=== PATIENT | male | born 1940 | race Hispanic/Latino ===

== ENCOUNTER 2017-07-21 18:13 | Inpatient (IN) | payer MEDICARE ==
--- NOTE | 2017-07-21 19:08 | ED PDOC ---
HPI: Psych/Substance Abuse Time Seen by Provider: 07/21/17 18:24 Chief Complaint (Nursing): Psychiatric Evaluation Chief Complaint (Provider): crisis eval ED Caveat: Dementia History Per: EMS, Other (SD paperwork) History/Exam Limitations: clinical condition Onset/Duration Of Symptoms: Unknown Current Symptoms Are (Timing): Intermittent Episodes Modifying Factor(s): None Severity: None Associated Symptoms: Agitation, Paranoia Involuntary Hold By: Emergency Physician Additional History Per: Prior Records Additional Complaint(s): 77yo male possibly recently placed to [place] and became agitated and physical with fellow [place] resident/ staff. In ED patient calm and cooperative but confused. No reports fever, falls, vomiting or diarrhea. Past Medical History Reviewed: Historical Data, Nursing Documentation, Vital Signs Vital Signs: Last Vital Signs Temp 98.0 F 07/21/17 18:15 Pulse 78 07/21/17 18:15 Resp 16 07/21/17 18:15 BP 148/78 07/21/17 18:15 Pulse Ox 98 07/21/17 18:15 - Medical History PMH: COPD, HTN, Hyperlipidemia, Chronic Kidney Disease - Family History Family History: States: Unknown Family Hx - Living Arrangements Living Arrangements: Halfway/Assist Lvng - Social History Current smoker - smoking cessation education provided: No - Home Medications Home Medications: Ambulatory Orders Medication Instructions Recorded Azithromycin [Zithromax] 500 mg IVPB DAILY 5 Days vial 07/15/17 Albuterol/Ipratropium [Duoneb 3 3 ml INH RQ6 neb 07/16/17 mg/0.5 mg (3 ml) UD] Apixaban [Eliquis] 2.5 mg PO BID tab 07/16/17 Aspirin [Ecotrin] 81 mg PO DAILY tabec 07/16/17 Carvedilol [Coreg] 12.5 mg PO BID tab 07/16/17 Spironolactone [Aldactone] 25 mg PO BID tab 07/16/17 Tiotropium [place] Inhaler 1 inhaler INH ONCE inhaler 07/16/17 [Spiriva Inhalation Handihaler Device] Tiotropium [Spiriva] 18 mcg INH RQ24 cap 07/16/17 Vitamin B Complex/Vit C/Folic 1 tab PO 0800 tab 07/16/17 [Nephro-Doreen] cefTRIAXone [Rocephin] 1 gm IVPB DAILY vial 07/16/17 - Allergies Allergies/Adverse Reactions: Allergies Allergy/AdvReac Type Severity Reaction Status Date / Time No Known Allergies Allergy Unverified 07/09/17 18:07 Review of Systems Review Of Systems: ROS cannot be obtained secondary to pt's inabilty to answer questions. Physical Exam - Reviewed Nursing Documentation Reviewed: Yes Vital Signs Reviewed: Yes - Physical Exam Appears: Positive for: Non-toxic (elderly confused), No Acute Distress Head Exam: Positive for: ATRAUMATIC, NORMAL INSPECTION, NORMOCEPHALIC Skin: Positive for: Normal Color, Warm, DRY Eye Exam: Positive for: EOMI, Normal appearance, PERRL ENT: Positive for: Normal ENT Inspection Neck: Positive for: Normal, Painless ROM Cardiovascular/Chest: Positive for: Regular Rate, Rhythm Respiratory: Positive for: CNT, Normal Breath Sounds Gastrointestinal/Abdominal: Positive for: Normal Exam, Bowel Sounds, Soft Back: Positive for: Normal Inspection Extremity: Positive for: Normal ROM Neurologic/Psych: Positive for: Alert, Other (labile poor insight). Negative for: Oriented, Facial Droop - Laboratory Results Result Diagrams: 07/22/17 05:20 07/22/17 05:20 - ECG O2 Sat by Pulse Oximetry: 98 Medical Decision Making Medical Decision Making: workup for med clr for crisis eval initiated endorsed Dr Damon 7pm pending labs/ crisis/ dispo Disposition - Clinical Impression Clinical Impression: Dementia, Pneumonia - Patient ED Disposition Is Patient to be Admitted: Transfer of Care - Disposition Disposition Time: 19:00 Condition: FAIR Patient Signed Over To: Carlos Damon - Pt Status Changed To: Hospital Disposition Of: Observation
--- NOTE | 2017-07-21 19:32 | ED PDOC ---
- Laboratory Results Result Diagrams: 07/22/17 05:20 07/21/17 22:28 - ECG O2 Sat by Pulse Oximetry: 98 Medical Decision Making Medical Decision Makin:00 -Patient transferred to nv by Dr. Lyle, pending crisis evaluation, labs and reevaluation. 20:00 -Patient placed in 1:1 observation -Per crisis, patient [place] be [place] [facility] [place] 21:43 -Labs reviewed, significant for marked leukocytosis. On further review of patient's charts from [facility] and [facility], pt is currently being treated for pneumonia. -Given that he has active pneumonia and leukocytosis patient is not appropiate for psychiatric admission. He will be admitted for further treatment of condition. -Discussed case with Dr. Xie. Disposition Discussed With : Marlon Xie - Clinical Impression Clinical Impression: Dementia, Pneumonia - POA Present On Arrival: None - Disposition Disposition: Admitted as In-Patient Disposition Time: 20:40 Condition: FAIR
[2017-07-21 20:11] LABS: BASO # 0.2 K/uL (0.0-0.2); BASO % 0.7 % (0.0-2.0); EOS # 0.2 K/uL (0.0-0.7); EOS % 0.8 % (0.0-4.0); HEMOGLOBIN 13.1 g/dL (12.0-18.0); LYMPH # 1.5 K/uL (1.0-4.3); LYMPH % 6.4 % (20.0-40.0); MEAN CELL VOLUME 92.1 fl (80.0-94.0); MEAN CORPUSCULAR HEMOGLOBIN 28.9 pg (27.0-31.0); MEAN CORPUSCULAR HGB CONC 31.4 g/dL (33.0-37.0); MONO # 1.3 K/uL (0.0-0.8); MONO % 5.4 % (0.0-10.0); NEUT # 20.5 K/uL (1.8-7.0); NEUT % 86.7 % (50.0-75.0); PLATELET COUNT 351 K/uL (130-400); RBC 4.53 Mil/uL (4.40-5.90); RED CELL DISTRIBUTION WIDTH 13.9 % (11.5-14.5); WHITE BLOOD COUNT 23.7 K/uL (4.8-10.8)
[2017-07-21 20:31] LABS: ALBUMIN 3.8 g/dL (3.5-5.0); ALT/SGPT 24 U/L (21-72); AST/SGOT 41 U/L (17-59); BLOOD UREA NITROGEN 62 mg/dl (9-20); CALCIUM 9.2 mg/dL (8.4-10.2); GFR AFRICAN-AMERICAN 42; GFR NON-AFRICAN AMERICAN 34
[2017-07-21] MEDS ORDERED: Cefepime 1 GM in Sodium Chloride 0.9% 100 ML IVPB STA (21:19)
[2017-07-21 21:29] LABS: INR 1.4 (0.9-1.2); PROTHROMBIN TIME 15.4 Seconds (9.8-13.1)
[2017-07-21 22:32] LABS: BANDS 3 % (0-2); EOSINOPHIL 2 % (0-7); LYMPHOCYTE 7 % (20-50); MONOCYTE 6 % (0-10); NEUTROPHIL 82 % (42-75); PLATELET ESTIMATE NORMAL (NORMAL); TOTAL CELLS COUNTED 100
[2017-07-21 22:34] LABS: TOXIC GRANULATION PRESENT
[2017-07-21] MEDS ORDERED: levoFLOXacin 500 mg in D5W 500 MG/100 ML BAG IVPB ONE (22:35)
[2017-07-21] MEDS ORDERED: levoFLOXacin 500 mg in D5W 500 MG/100 ML BAG IVPB STA (22:38)
[2017-07-21 23:04] LABS: CALCIUM 8.9 mg/dL (8.4-10.2)
[2017-07-22 06:24] LABS: BASO # 0.1 K/uL (0.0-0.2); BASO % 0.6 % (0.0-2.0); EOS # 0.3 K/uL (0.0-0.7); EOS % 1.3 % (0.0-4.0); HEMOGLOBIN 12.6 g/dL (12.0-18.0); LYMPH # 1.4 K/uL (1.0-4.3); MEAN CELL VOLUME 92.5 fl (80.0-94.0); MEAN CORPUSCULAR HEMOGLOBIN 28.5 pg (27.0-31.0); MEAN CORPUSCULAR HGB CONC 30.9 g/dL (33.0-37.0); MEAN PLATELET VOLUME 9.2 fl (7.2-11.7); MONO # 1.2 K/uL (0.0-0.8); MONO % 5.9 % (0.0-10.0); NEUT # 17.6 K/uL (1.8-7.0); NEUT % 85.2 % (50.0-75.0); NRBC % 0.1 % (0.0-0.0); RBC 4.42 Mil/uL (4.40-5.90); RED CELL DISTRIBUTION WIDTH 13.6 % (11.5-14.5); WHITE BLOOD COUNT 20.6 K/uL (4.8-10.8)
[2017-07-22 06:35] LABS: CALCIUM 8.7 mg/dL (8.4-10.2); MAGNESIUM 2.2 MG/DL (1.6-2.3)
[2017-07-22] MEDS: Insulin Regular 100 units/ml SC SCH ×4 (07:37→22:00)
--- NOTE | 2017-07-22 08:41 | CP.PCM.HP ---
History of Present Illness - History of Present Illness History of Present Illness: CC: Agitation and Cough History of Present Illness: History from the patient and the chart A 77 year old male with H/O COPD, CAD s/p CABG, A.fib, Dementia, and was being treated for Pneumonia at [facility] with IV antibiotics when he became agitated and aggressive and transferred for psych eval. In the ER, he was found to have Cough, Congestion and Leukocytosis, and he was admitted for HCAP However once he was in ED he was found to be calm and cooperative. He denies any fever or chills. Present on Admission - Present on Admission Any Indicators Present on Admission: No History of DVT/PE: No History of Uncontrolled Diabetes: No Urinary Catheter: No Decubitus Ulcer Present: No Review of Systems - Review of Systems All systems: reviewed and no additional remarkable complaints except Past Patient History - Past Medical History & Family History Past Medical History?: Yes Past Family History: Reviewed and not pertinent - Past Social History Smoking Status: Former Smoker Alcohol: None Drugs: Denies - CARDIAC Hx Cardiac Disorders: Yes Hx Atrial Fibrillation: Yes Hx Hypercholesterolemia: Yes - PULMONARY Hx Respiratory Disorders: Yes Hx Chronic Obstructive Pulmonary Disease (COPD): Yes - NEUROLOGICAL Hx Neurological Disorder: Yes Hx Dementia: Yes - HEENT Hx HEENT Problems: Yes Other/Comment: [place] - RENAL Hx Chronic Kidney Disease: Yes Hx Dialysis: No - ENDOCRINE/METABOLIC Hx Endocrine Disorders: Yes Hx Diabetes Mellitus Type 2: Yes - HEMATOLOGICAL/ONCOLOGICAL Hx Blood Disorders: No Hx AIDS: No Hx Human Immunodeficiency Virus (HIV): No - INTEGUMENTARY Hx Dermatological Problems: No - MUSCULOSKELETAL/RHEUMATOLOGICAL Hx Musculoskeletal Disorders: Yes Hx Falls: Yes - GASTROINTESTINAL Hx Gastrointestinal Disorders: No - GENITOURINARY/GYNECOLOGICAL Hx Genitourinary Disorders: Yes Hx Bladder Cancer: No Hx Bladder Stone: No Hx Hematuria: No Hx Incontinence: No Hx Prostate Cancer: No Hx Prostate Problems: No Hx Reproductive Disorders: No Hx Sexually Transmitted Disorders: No Hx Urinary Tract Infection: No - PSYCHIATRIC Hx Psychophysiologic Disorder: Yes Hx Substance Use: No Other/Comment: being tx for. pna - SURGICAL HISTORY Hx Surgeries: Yes Hx Open Heart Surgery: Yes (30 years ago) Hx Pulmonary Surgery: No Hx Thyroidectomy: Yes - ANESTHESIA Hx Anesthesia: Yes Hx Anesthesia Reactions: No Hx Malignant Hyperthermia: No Meds Allergies/Adverse Reactions: Allergies Allergy/AdvReac Type Severity Reaction Status Date / Time No Known Allergies Allergy Unverified 07/09/17 18:07 Physical Exam - Constitutional Appears: Well, No Acute Distress - Head Exam Head Exam: ATRAUMATIC, NORMAL INSPECTION, NORMOCEPHALIC - Eye Exam Eye Exam: EOMI, Normal appearance, PERRL Pupil Exam: NORMAL ACCOMODATION, PERRL - ENT Exam ENT Exam: Mucous Membranes Moist, Normal Exam - Neck Exam Neck exam: Positive for: Normal Inspection - Respiratory Exam Respiratory Exam: Decreased Breath Sounds, Rales, NORMAL BREATHING PATTERN. absent: Wheezes Additional comments: Midline healed surgical scars - Cardiovascular Exam Cardiovascular Exam: REGULAR RHYTHM, +S1, +S2 - GI/Abdominal Exam GI & Abdominal Exam: Normal Bowel Sounds, Soft. absent: Tenderness - Extremities Exam Extremities exam: Positive for: normal capillary refill, normal inspection Additional comments: Multiple Bruises to B/L Upper extremities. - Back Exam Back exam: NORMAL INSPECTION - Neurological Exam Neurological exam: Abnormal Gait, Alert, CN II-XII Intact, Reflexes Normal Additional comments: Not oriented to PPP. - Psychiatric Exam Psychiatric exam: Normal Affect, Normal Mood - Skin Skin Exam: Dry, Intact, Normal Color, Warm Results - Vital Signs Recent Vital Signs: Last Vital Signs Temp 97.6 F 07/22/17 07:47 Pulse 71 07/22/17 07:47 Resp 18 07/22/17 07:47 BP 143/88 07/22/17 07:47 Pulse Ox 97 07/22/17 07:47 - Labs Result Diagrams: 07/22/17 05:20 07/22/17 05:20 Labs: Laboratory Results - last 24 hr 07/21/17 07/21/17 07/21/17 19:08 19:11 20:05 WBC 23.7 H RBC 4.53 Hgb 13.1 Hct 41.7 MCV 92.1 MCH 28.9 MCHC 31.4 L RDW 13.9 Plt Count 351 MPV 9.0 Neut % (Auto) 86.7 H Lymph % (Auto) 6.4 L [place] % (Auto) 5.4 Eos % (Auto) 0.8 Baso % (Auto) 0.7 Neut # 20.5 H Lymph # 1.5 [place] # 1.3 H Eos # 0.2 Baso # 0.2 Neutrophils % (Manual) 82 H Band Neutrophils % 3 H Lymphocytes % (Manual) 7 L Monocytes % (Manual) 6 Eosinophils % (Manual) 2 Toxic Granulation Present Platelet Estimate Normal PT INR APTT Sodium 138 Potassium 7.1 H* Chloride 105 Carbon Dioxide 21 L Anion Gap 19 BUN 62 H Creatinine 1.9 H Est GFR ( Amer) 42 Est GFR (Non-Af Amer) 34 POC Glucose (mg/dL) 144 H Random Glucose 150 H Lactic Acid Calcium 9.2 Magnesium Total Bilirubin 1.0 AST 41 ALT 24 Alkaline Phosphatase 64 Troponin I 0.0380 Total Protein 7.6 Albumin 3.8 Globulin 3.9 Albumin/Globulin Ratio 1.0 Alcohol, Quantitative < 10 07/21/17 07/21/17 07/21/17 21:00 21:00 22:28 WBC RBC Hgb Hct MCV MCH MCHC RDW Plt Count MPV Neut % (Auto) Lymph % (Auto) [place] % (Auto) Eos % (Auto) Baso % (Auto) Neut # Lymph # [place] # Eos # Baso # Neutrophils % (Manual) Band Neutrophils % Lymphocytes % (Manual) Monocytes % (Manual) Eosinophils % (Manual) Toxic Granulation Platelet Estimate PT 15.4 H INR 1.4 H APTT 30.0 Sodium 138 Potassium 4.7 Chloride 106 Carbon Dioxide 23 Anion Gap 14 BUN 58 H Creatinine 1.8 H Est GFR ( Amer) 44 Est GFR (Non-Af Amer) 37 POC Glucose (mg/dL) Random Glucose 125 H Lactic Acid 1.1 Calcium 8.9 Magnesium Total Bilirubin AST ALT Alkaline Phosphatase Troponin I Total Protein Albumin Globulin Albumin/Globulin Ratio Alcohol, Quantitative 07/22/17 07/22/17 07/22/17 05:20 05:20 05:55 WBC 20.6 H RBC 4.42 Hgb 12.6 Hct 40.9 MCV 92.5 MCH 28.5 MCHC 30.9 L RDW 13.6 Plt Count 351 MPV 9.2 Neut % (Auto) 85.2 H Lymph % (Auto) 7.0 L [place] % (Auto) 5.9 Eos % (Auto) 1.3 Baso % (Auto) 0.6 Neut # 17.6 H Lymph # 1.4 [place] # 1.2 H Eos # 0.3 Baso # 0.1 Neutrophils % (Manual) Band Neutrophils % Lymphocytes % (Manual) Monocytes % (Manual) Eosinophils % (Manual) Toxic Granulation Platelet Estimate PT INR APTT Sodium 139 Potassium 5.2 H Chloride 108 H Carbon Dioxide 19 L Anion Gap 17 BUN 52 H Creatinine 1.5 Est GFR ( Amer) 55 Est GFR (Non-Af Amer) 45 POC Glucose (mg/dL) 98 Random Glucose 93 Lactic Acid Calcium 8.7 Magnesium 2.2 Total Bilirubin AST ALT Alkaline Phosphatase Troponin I Total Protein Albumin Globulin Albumin/Globulin Ratio Alcohol, Quantitative - Imaging and Cardiology Chest x-ray Status: Report reviewed by me Additional comment: HISTORY: med clr COMPARISON: No prior. FINDINGS: LUNGS: No active pulmonary disease. PLEURA: No significant pleural effusion identified, no pneumothorax apparent. CARDIOVASCULAR: Prior sternotomy with sternal wires and surgical clips in place. Atherosclerotic aortic calcifications. Cardiomediastinal silhouette within normal limits. OSSEOUS STRUCTURES: Degenerative changes. VISUALIZED UPPER ABDOMEN: Normal. OTHER FINDINGS: Left upper extremity midline catheter with tip seen in the axilla. IMPRESSION: No active disease. Assessment & Plan (1) Agitation Assessment and Plan: Possibibly due to Acute Delirium due to Systemic Infection Vs Dementia with behaviour Haldol PRN Safety watch Psych Evaluation Status: Acute (2) Leukocytosis Assessment and Plan: Most Likely Pneumonia, Facility Acquired Vs Line Sepsis from the PICC Line C Start IV Cefepime and Levaquin IVF Sputum and Blood Cultures (from the periphery and Central Line ID Consult May Need CT Chest /TTE if Leukocyt persists Status: Acute
[2017-07-22] MEDS ORDERED: Cefepime 1 GM in Sodium Chloride 0.9% 100 ML IVPB SCH (09:00)
[2017-07-22] MEDS ORDERED: levoFLOXacin 500 mg in D5W 500 MG/100 ML BAG IVPB SCH (09:00)
[2017-07-22 09:05] LABS: BARBITURATES, UR NEGATIVE (NEGATIVE); BENZODIAZEPINES, UR NEGATIVE (NEGATIVE); OPIATES, UR NEGATIVE (NEGATIVE); PHENCYCLIDINE, UR NEGATIVE (NEGATIVE)
[2017-07-22 09:07] LABS: SQUAMOUS EPITHIAL < 1 /hpf (0-5); URINE BACTERIA RARE (<OCC); URINE BILIRUBIN NEGATIVE (NEGATIVE); URINE BLOOD NEGATIVE (NEGATIVE); URINE CLARITY SLIGHTY-CLOUDY (Clear); URINE COLOR YELLOW (YELLOW); URINE GLUCOSE (UA) NEG (Normal); URINE HYALINE CAST 0-2 /hpf (0-2); URINE LEUKOCYTE ESTERASE NEG Leu/uL (Negative); URINE NITRATE NEGATIVE (NEGATIVE); URINE PROTEIN 100 mg/dL (NEGATIVE); URINE UROBILINOGEN 0.2-1.0 mg/dL (0.2-1.0)
[2017-07-22] MEDS: levoFLOXacin 250 mg in D5W 250 MG/50 ML BAG IVPB SCH (09:11)
[2017-07-22] MEDS: Multivitamin Vitamin B Complex (Nephro-Vite) Tab PO SCH (09:12)
--- NOTE | 2017-07-22 09:57 | RAD ---
HISTORY: med clr COMPARISON: No prior. FINDINGS: LUNGS: No active pulmonary disease. PLEURA: No significant pleural effusion identified, no pneumothorax apparent. CARDIOVASCULAR: Prior sternotomy with sternal wires and surgical clips in place. Atherosclerotic aortic calcifications. Cardiomediastinal silhouette within normal limits. OSSEOUS STRUCTURES: Degenerative changes. VISUALIZED UPPER ABDOMEN: Normal. OTHER FINDINGS: Left upper extremity midline catheter with tip seen in the axilla. IMPRESSION: No active disease.
--- NOTE | 2017-07-22 11:18 | CARD ---
APPROVED REPORT EKG Measurement Heart [id number] <Conclusion> Sinus rhythm with 1st degree AV block with premature atrial complexes Left axis deviation Right bundle branch block Abnormal ECG
[2017-07-22] MEDS: Albuterol-Ipratrop 3 mg / 0.5 (3 ml) UD INH PRN (11:37)
[2017-07-22] MEDS: Tiotropium 18 mcg Cap For Inhalation INH SCH ×2 (11:38→16:58)
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
[2017-07-22] MEDS: Sodium Chloride 0.45% 1,000 ML IV SCH (15:55)
[2017-07-22] MEDS: Piperacillin/Tazobact 3.375 GM in Sodium Chloride 0.9% 100 ML IVPB SCH (17:06)
[2017-07-23] MEDS: Piperacillin/Tazobact 3.375 GM in Sodium Chloride 0.9% 100 ML IVPB SCH ×3 (01:40→17:17)
[2017-07-23] MEDS ORDERED: Sodium Chloride 3% for Inhalation 4 ML VIAL.NEB IH ONE (05:00)
[2017-07-23 06:38] LABS: BASO # 0.2 K/uL (0.0-0.2); EOS # 0.2 K/uL (0.0-0.7); EOS % 1.4 % (0.0-4.0); HEMOGLOBIN 12.2 g/dL (12.0-18.0); LYMPH # 1.2 K/uL (1.0-4.3); LYMPH % 7.3 % (20.0-40.0); MEAN CELL VOLUME 89.7 fl (80.0-94.0); MEAN CORPUSCULAR HEMOGLOBIN 29.6 pg (27.0-31.0); MEAN PLATELET VOLUME 8.9 fl (7.2-11.7); MONO % 6.1 % (0.0-10.0); NEUT % 84.2 % (50.0-75.0); RBC 4.11 Mil/uL (4.40-5.90); RED CELL DISTRIBUTION WIDTH 13.4 % (11.5-14.5); WHITE BLOOD COUNT 16.6 K/uL (4.8-10.8)
[2017-07-23 06:43] LABS: CALCIUM 8.8 mg/dL (8.4-10.2)
[2017-07-23] MEDS: Insulin Regular 100 units/ml SC SCH ×4 (08:06→22:18)
--- NOTE | 2017-07-23 08:19 | PQF GENQUE ---
Dr. Xie, 1. Please specify type of pneumonia or suspected type of pneumonia in the progress notes: if known after the work up is completed: i.e. Aspiration pneumonia Please document specific aspirate (food, liquids, etc.) (please indicate specific cause) Please indicate if this is postprocedural Bacterial (specify organism) Bronchopneumonia (specify organism) Interstitual pneumonia Organizing pneumonia/BOOP Pneumonia with influenza, lester flu, or H1N1 flu RSV pneumonia Tuberculosis, pulmonary Viral pneumonia Other pneumonia (specify organism or type) OR Clinically unable to determine OR Unknown Note: Probable and suspected conditions can be coded as if they exist if still documented at the time of discharge. 2. . Please specify the organism causing the pneumonia if known after the work up mis completed Note: CAP, HAP, and HCAP indicate where the pneumonia was acquired, not a specific type. H and P: 77 year old male with H/O COPD, CAD s/p CABG, A.fib, Dementia, and was being treated for Pneumonia [place] [facility] with IV antibiotics when he became agitated and aggressive and transferred for psych eval. In the ER, he was found to have Cough, Congestion and Leukocytosis, and he was admitted for HCAP -He denies any fever or chills. 1) Agitation ;Assessment and Plan: Possibibly due to Acute Delirium due to Systemic Infection Vs Dementia with behaviour Haldol PRN Safety watch Psych Evaluation Status: Acute (2) Leukocytosis Assess: Most Likely Pneumonia, Facility Acquired Vs Line Sepsis from the PICC Line C Start IV Cefepime and Levaquin IVF - Sputum and Blood Cultures (from the periphery and Central Line ID Consult May Need CT Chest /TTE if Leukocyt persists Status: Acute preliminary blood cultures after 24 hrs.: no growth Dysphagia/Modified diet This form is a permanent part of the medical record Clarification of your documentation is requested to better reflect the severity of illness and intensity of treatment of your patient. Indicators present [] Specify: [] [] Specify: [] [] Specify: [] [] Specify: [] Location in the medical record that reflects the above clinical findings: [] Treatment Provided: [] PHYSICIAN'S RESPONSE Based on your medical judgment of the clinical indicators outlined above please clarify the following: [] Practitioner response [] If unable to determine, please check the box, sign and date. Present On Admission (POA) Indicator: [] Present at the time of admission [] Not present at the time of admission [] Clinically Undetermined In responding to this query, please exercise your independent professional judgment. The fact that a question is asked does not imply that any particular answer is desired or expected. Thank you for your clarification on this documentation. If you have any questions please call. * Thank you, Dahlia Berg RN ext. #[phone] MTDD
[2017-07-23] MEDS: Tiotropium 18 mcg Cap For Inhalation INH SCH (09:35)
[2017-07-23] MEDS: Multivitamin Vitamin B Complex (Nephro-Vite) Tab PO SCH (09:35)
[2017-07-23] MEDS: levoFLOXacin 250 mg in D5W 250 MG/50 ML BAG IVPB SCH (09:38)
--- NOTE | 2017-07-23 10:51 | CP.PCM.PN ---
Subjective - Date & Time of Evaluation Date of Evaluation: 07/23/17 Time of Evaluation: 15:00 - Subjective Subjective: ID Note- pt. seen and examined today. no new events overnight. pt. denies any fever or chills. denies any sob. states has less cough. Objective - Vital Signs/Intake and Output Vital Signs (last 24 hours): Temp Pulse Resp BP Pulse Ox 97.3 F L 76 20 128/86 95 07/23/17 07:59 07/23/17 09:35 07/23/17 07:59 07/23/17 09:35 07/23/17 07:59 - Medications Medications: Current Medications Albuterol/Ipratropium (Duoneb 3 Mg/0.5 Mg (3 Ml) Ud) 3 ml INH RQ6 PRN PRN Reason: Shortness of Breath Last Admin: 07/22/17 11:37 Dose: 3 ml Apixaban (Eliquis) 2.5 mg PO BID [facility] PRN Reason: Protocol Last Admin: 07/23/17 09:35 Dose: 2.5 mg Aspirin (Ecotrin) 81 mg PO DAILY [facility] Last Admin: 07/23/17 09:35 Dose: 81 mg Carvedilol (Coreg) 12.5 mg PO BID [facility] Last Admin: 07/23/17 09:35 Dose: 12.5 mg Levofloxacin/Dextrose (Levaquin 250mg) 250 mg in 50 mls @ 50 mls/hr IVPB DAILY [facility] PRN Reason: Protocol Last Admin: 07/23/17 09:38 Dose: 50 mls/hr Piperacillin Sod/Tazobactam (Sod 3.375 gm/ Sodium Chloride) 100 mls @ 100 mls/ hr IVPB Q8 NAVA PRN Reason: Protocol Last Admin: 07/23/17 01:40 Dose: 100 mls/hr Sodium Chloride (Sodium Chloride 0.45%) 1,000 mls @ 50 mls/hr IV .Q20H [facility] Stop: 07/23/17 15:13 Last Admin: 07/22/17 15:55 Dose: 50 mls/hr Insulin Human Regular (Humulin R) 0 units [place] ACHS NAVA PRN Reason: Protocol Last Admin: 07/23/17 08:06 Dose: Not Given Spironolactone (Aldactone) 25 mg PO BID [facility] Last Admin: 07/23/17 09:34 Dose: 25 mg Tiotropium [place] (Spiriva) 18 mcg INH DAILY [facility] Last Admin: 07/23/17 09:35 Dose: 18 mcg Vitamin B Complex/Vit C/Folic Acid (Nephro-Doreen) 1 tab PO 0800 [facility] Last Admin: 07/23/17 09:35 Dose: 1 tab - Labs Labs: - Additional Findings Additional findings: - Constitutional Appears: No Acute Distress, Chronically Ill - Head Exam Head Exam: ATRAUMATIC - Eye Exam Eye Exam: PERRL - ENT Exam Additional comments: dry oral mucosa - Neck Exam Neck exam: Positive for: Full Rom - Respiratory Exam Respiratory Exam: NORMAL BREATHING PATTERN Additional comments: decreased breath sounds bibasilar No wheezing - Cardiovascular Exam Cardiovascular Exam: RRR, +S1, +S2 - GI/Abdominal Exam GI & Abdominal Exam: Normal Bowel Sounds, Soft Additional comments: NT, ND - Extremities Exam Additional comments: left arm has picc line in place multiple echymotic areas throughout both arms no edema B/L LE - Neurological Exam Neurological exam: Alert Laboratory Results - last 72 hr 07/21/17 07/21/17 07/21/17 19:08 19:11 20:05 WBC 23.7 H RBC 4.53 Hgb 13.1 Hct 41.7 MCV 92.1 MCH 28.9 MCHC 31.4 L RDW 13.9 Plt Count 351 MPV 9.0 Neut % (Auto) 86.7 H Lymph % (Auto) 6.4 L [place] % (Auto) 5.4 Eos % (Auto) 0.8 Baso % (Auto) 0.7 Neut # 20.5 H Lymph # 1.5 [place] # 1.3 H Eos # 0.2 Baso # 0.2 Neutrophils % (Manual) 82 H Band Neutrophils % 3 H Lymphocytes % (Manual) 7 L Monocytes % (Manual) 6 Eosinophils % (Manual) 2 Toxic Granulation Present Platelet Estimate Normal PT INR APTT Sodium 138 Potassium 7.1 H* Chloride 105 Carbon Dioxide 21 L Anion Gap 19 BUN 62 H Creatinine 1.9 H Est GFR ( Amer) 42 Est GFR (Non-Af Amer) 34 POC Glucose (mg/dL) 144 H Random Glucose 150 H Lactic Acid Calcium 9.2 Magnesium Total Bilirubin 1.0 AST 41 ALT 24 Alkaline Phosphatase 64 Troponin I 0.0380 Total Protein 7.6 Albumin 3.8 Globulin 3.9 Albumin/Globulin Ratio 1.0 Urine Color Urine Clarity Urine pH Ur Specific [place] Urine Protein Urine Glucose (UA) Urine Ketones Urine Blood Urine Nitrate Urine Bilirubin Urine Urobilinogen Ur Leukocyte Esterase Urine RBC (Auto) Urine Microscopic WBC Ur Squamous Epith Cells Urine Bacteria Hyaline Casts Urine Opiates Screen Urine Methadone Screen Ur Barbiturates Screen Ur Phencyclidine Scrn Ur Amphetamines Screen U Benzodiazepines Scrn U Oth Cocaine Metabols U Cannabinoids Screen Alcohol, Quantitative < 10 Ur L.pneumophila Ag 07/21/17 07/21/17 07/21/17 21:00 21:00 22:28 WBC RBC Hgb Hct MCV MCH MCHC RDW Plt Count MPV Neut % (Auto) Lymph % (Auto) [place] % (Auto) Eos % (Auto) Baso % (Auto) Neut # Lymph # [place] # Eos # Baso # Neutrophils % (Manual) Band Neutrophils % Lymphocytes % (Manual) Monocytes % (Manual) Eosinophils % (Manual) Toxic Granulation Platelet Estimate PT 15.4 H INR 1.4 H APTT 30.0 Sodium 138 Potassium 4.7 Chloride 106 Carbon Dioxide 23 Anion Gap 14 BUN 58 H Creatinine 1.8 H Est GFR ( Amer) 44 Est GFR (Non-Af Amer) 37 POC Glucose (mg/dL) Random Glucose 125 H Lactic Acid 1.1 Calcium 8.9 Magnesium Total Bilirubin AST ALT Alkaline Phosphatase Troponin I Total Protein Albumin Globulin Albumin/Globulin Ratio Urine Color Urine Clarity Urine pH Ur Specific [place] Urine Protein Urine Glucose (UA) Urine Ketones Urine Blood Urine Nitrate Urine Bilirubin Urine Urobilinogen Ur Leukocyte Esterase Urine RBC (Auto) Urine Microscopic WBC Ur Squamous Epith Cells Urine Bacteria Hyaline Casts Urine Opiates Screen Urine Methadone Screen Ur Barbiturates Screen Ur Phencyclidine Scrn Ur Amphetamines Screen U Benzodiazepines Scrn U Oth Cocaine Metabols U Cannabinoids Screen Alcohol, Quantitative Ur L.pneumophila Ag 07/22/17 07/22/17 07/22/17 05:20 05:20 05:55 WBC 20.6 H RBC 4.42 Hgb 12.6 Hct 40.9 MCV 92.5 MCH 28.5 MCHC 30.9 L RDW 13.6 Plt Count 351 MPV 9.2 Neut % (Auto) 85.2 H Lymph % (Auto) 7.0 L [place] % (Auto) 5.9 Eos % (Auto) 1.3 Baso % (Auto) 0.6 Neut # 17.6 H Lymph # 1.4 [place] # 1.2 H Eos # 0.3 Baso # 0.1 Neutrophils % (Manual) Band Neutrophils % Lymphocytes % (Manual) Monocytes % (Manual) Eosinophils % (Manual) Toxic Granulation Platelet Estimate PT INR APTT Sodium 139 Potassium 5.2 H Chloride 108 H Carbon Dioxide 19 L Anion Gap 17 BUN 52 H Creatinine 1.5 Est GFR ( Amer) 55 Est GFR (Non-Af Amer) 45 POC Glucose (mg/dL) 98 Random Glucose 93 Lactic Acid Calcium 8.7 Magnesium 2.2 Total Bilirubin AST ALT Alkaline Phosphatase Troponin I Total Protein Albumin Globulin Albumin/Globulin Ratio Urine Color Urine Clarity Urine pH Ur Specific [place] Urine Protein Urine Glucose (UA) Urine Ketones Urine Blood Urine Nitrate Urine Bilirubin Urine Urobilinogen Ur Leukocyte Esterase Urine RBC (Auto) Urine Microscopic WBC Ur Squamous Epith Cells Urine Bacteria Hyaline Casts Urine Opiates Screen Urine Methadone Screen Ur Barbiturates Screen Ur Phencyclidine Scrn Ur Amphetamines Screen U Benzodiazepines Scrn U Oth Cocaine Metabols U Cannabinoids Screen Alcohol, Quantitative Ur L.pneumophila Ag 07/22/17 07/22/17 07/22/17 07:26 08:45 08:45 WBC RBC Hgb Hct MCV MCH MCHC RDW Plt Count MPV Neut % (Auto) Lymph % (Auto) [place] % (Auto) Eos % (Auto) Baso % (Auto) Neut # Lymph # [place] # Eos # Baso # Neutrophils % (Manual) Band Neutrophils % Lymphocytes % (Manual) Monocytes % (Manual) Eosinophils % (Manual) Toxic Granulation Platelet Estimate PT INR APTT Sodium Potassium Chloride Carbon Dioxide Anion Gap BUN Creatinine Est GFR ( Amer) Est GFR (Non-Af Amer) POC Glucose (mg/dL) Random Glucose Lactic Acid Calcium Magnesium Total Bilirubin AST ALT Alkaline Phosphatase Troponin I Total Protein Albumin Globulin Albumin/Globulin Ratio Urine Color Yellow Urine Clarity Slighty-cloudy Urine pH 5.0 Ur Specific [place] 1.017 Urine Protein 100 Urine Glucose (UA) Neg Urine Ketones Trace Urine Blood Negative Urine Nitrate Negative Urine Bilirubin Negative Urine Urobilinogen 0.2-1.0 Ur Leukocyte Esterase Neg Urine RBC (Auto) 2 Urine Microscopic WBC 1 Ur Squamous Epith Cells < 1 Urine Bacteria Rare Hyaline Casts 0-2 Urine Opiates Screen Negative Urine Methadone Screen Negative Ur Barbiturates Screen Negative Ur Phencyclidine Scrn Negative Ur Amphetamines Screen Negative U Benzodiazepines Scrn Negative U Oth Cocaine Metabols Negative U Cannabinoids Screen Negative Alcohol, Quantitative Ur L.pneumophila Ag Negative 07/22/17 07/22/17 07/22/17 10:49 15:28 21:23 WBC RBC Hgb Hct MCV MCH MCHC RDW Plt Count MPV Neut % (Auto) Lymph % (Auto) [place] % (Auto) Eos % (Auto) Baso % (Auto) Neut # Lymph # [place] # Eos # Baso # Neutrophils % (Manual) Band Neutrophils % Lymphocytes % (Manual) Monocytes % (Manual) Eosinophils % (Manual) Toxic Granulation Platelet Estimate PT INR APTT Sodium Potassium Chloride Carbon Dioxide Anion Gap BUN Creatinine Est GFR ( Amer) Est GFR (Non-Af Amer) POC Glucose (mg/dL) 149 H 117 H 123 H Random Glucose Lactic Acid Calcium Magnesium Total Bilirubin AST ALT Alkaline Phosphatase Troponin I Total Protein Albumin Globulin Albumin/Globulin Ratio Urine Color Urine Clarity Urine pH Ur Specific [place] Urine Protein Urine Glucose (UA) Urine Ketones Urine Blood Urine Nitrate Urine Bilirubin Urine Urobilinogen Ur Leukocyte Esterase Urine RBC (Auto) Urine Microscopic WBC Ur Squamous Epith Cells Urine Bacteria Hyaline Casts Urine Opiates Screen Urine Methadone Screen Ur Barbiturates Screen Ur Phencyclidine Scrn Ur Amphetamines Screen U Benzodiazepines Scrn U Oth Cocaine Metabols U Cannabinoids Screen Alcohol, Quantitative Ur L.pneumophila Ag 07/23/17 07/23/17 07/23/17 05:32 06:05 06:05 WBC 16.6 H RBC 4.11 L Hgb 12.2 Hct 36.8 MCV 89.7 D MCH 29.6 MCHC 33.0 RDW 13.4 Plt Count 356 MPV 8.9 Neut % (Auto) 84.2 H Lymph % (Auto) 7.3 L [place] % (Auto) 6.1 Eos % (Auto) 1.4 Baso % (Auto) 1.0 Neut # 14.0 H Lymph # 1.2 [place] # 1.0 H Eos # 0.2 Baso # 0.2 Neutrophils % (Manual) Band Neutrophils % Lymphocytes % (Manual) Monocytes % (Manual) Eosinophils % (Manual) Toxic Granulation Platelet Estimate PT INR APTT Sodium 137 Potassium 4.6 Chloride 106 Carbon Dioxide 22 Anion Gap 14 BUN 40 H Creatinine 1.6 H Est GFR ( Amer) 51 Est GFR (Non-Af Amer) 42 POC Glucose (mg/dL) 94 Random Glucose 97 Lactic Acid Calcium 8.8 Magnesium Total Bilirubin AST ALT Alkaline Phosphatase Troponin I Total Protein Albumin Globulin Albumin/Globulin Ratio Urine Color Urine Clarity Urine pH Ur Specific [place] Urine Protein Urine Glucose (UA) Urine Ketones Urine Blood Urine Nitrate Urine Bilirubin Urine Urobilinogen Ur Leukocyte Esterase Urine RBC (Auto) Urine Microscopic WBC Ur Squamous Epith Cells Urine Bacteria Hyaline Casts Urine Opiates Screen Urine Methadone Screen Ur Barbiturates Screen Ur Phencyclidine Scrn Ur Amphetamines Screen U Benzodiazepines Scrn U Oth Cocaine Metabols U Cannabinoids Screen Alcohol, Quantitative Ur L.pneumophila Ag 07/23/17 07/23/17 11:22 15:52 WBC RBC Hgb Hct MCV MCH MCHC RDW Plt Count MPV Neut % (Auto) Lymph % (Auto) [place] % (Auto) Eos % (Auto) Baso % (Auto) Neut # Lymph # [place] # Eos # Baso # Neutrophils % (Manual) Band Neutrophils % Lymphocytes % (Manual) Monocytes % (Manual) Eosinophils % (Manual) Toxic Granulation Platelet Estimate PT INR APTT Sodium Potassium Chloride Carbon Dioxide Anion Gap BUN Creatinine Est GFR ( Amer) Est GFR (Non-Af Amer) POC Glucose (mg/dL) 161 H 190 H Random Glucose Lactic Acid Calcium Magnesium Total Bilirubin AST ALT Alkaline Phosphatase Troponin I Total Protein Albumin Globulin Albumin/Globulin Ratio Urine Color Urine Clarity Urine pH Ur Specific [place] Urine Protein Urine Glucose (UA) Urine Ketones Urine Blood Urine Nitrate Urine Bilirubin Urine Urobilinogen Ur Leukocyte Esterase Urine RBC (Auto) Urine Microscopic WBC Ur Squamous Epith Cells Urine Bacteria Hyaline Casts Urine Opiates Screen Urine Methadone Screen Ur Barbiturates Screen Ur Phencyclidine Scrn Ur Amphetamines Screen U Benzodiazepines Scrn U Oth Cocaine Metabols U Cannabinoids Screen Alcohol, Quantitative Ur L.pneumophila Ag Microbiology 07/21/17 21:10 Blood Blood Culture - Preliminary NO GROWTH AFTER 48 HOURS 07/21/17 20:54 Blood Blood Culture - Preliminary NO GROWTH AFTER 48 HOURS 07/23/17 11:23 Sputum Induced Gram Stain - Final 07/22/17 16:46 Blood-Thru Central Line Blood Culture - Preliminary NO GROWTH AFTER 24 HOURS Assessment and Plan (1) Pneumonia Status: Acute (2) Dementia Status: Acute (3) Leukocytosis Status: Acute - Assessment and Plan (Free Text) Assessment: A/P- 77 year old [place] resident male with COPD, dementia, CAD , recent pneumonia was on IV abx at [place]. pt. afebrile leukocytosis trending down. cxr as per report no active disease. blood cx- neg x 2 peripheral blood cx through picc line- negative urine legionella AG- negative plan- await sputum cx result. await mycoplasma serology. continue with Iv zosyn day #2. advise to also continue with the levaquin that was already initiated by primary doc to cover for atypical pathogens. Monitor aspiration precautions.
[2017-07-23] MEDS: Sodium Chloride 0.45% 1,000 ML IV SCH (12:52)
[2017-07-23] MEDS ORDERED: Albuterol-Ipratrop 3 mg / 0.5 (3 ml) UD INH PRN (17:28)
[2017-07-23] MEDS: Albuterol-Ipratrop 3 mg / 0.5 (3 ml) UD INH PRN (17:31)
--- NOTE | 2017-07-23 20:31 | CP.PCM.CON ---
History of Present Illness - History of Present Illness History of Present Illness: Called to see patient with PNA and possible cOPD. Patient examined, chart reviewed, full consul to follow. Cont present treatment plan. Will follow. PUD and dVT Px. Past Patient History - Past Medical History & Family History Past Medical History?: Yes Past Family History: Reviewed and not pertinent - Past Social History Smoking Status: Former Smoker Alcohol: None Drugs: Denies - CARDIAC Hx Cardiac Disorders: Yes Hx Atrial Fibrillation: Yes Hx Hypercholesterolemia: Yes - PULMONARY Hx Respiratory Disorders: Yes Hx Chronic Obstructive Pulmonary Disease (COPD): Yes - NEUROLOGICAL Hx Neurological Disorder: Yes Hx Dementia: Yes - HEENT Hx HEENT Problems: Yes Other/Comment: [place] - RENAL Hx Chronic Kidney Disease: Yes Hx Dialysis: No - ENDOCRINE/METABOLIC Hx Endocrine Disorders: Yes Hx Diabetes Mellitus Type 2: Yes - HEMATOLOGICAL/ONCOLOGICAL Hx AIDS: No Hx Human Immunodeficiency Virus (HIV): No - INTEGUMENTARY Hx Dermatological Problems: No - MUSCULOSKELETAL/RHEUMATOLOGICAL Hx Musculoskeletal Disorders: Yes Hx Falls: Yes - GASTROINTESTINAL Hx Gastrointestinal Disorders: No - GENITOURINARY/GYNECOLOGICAL Hx Genitourinary Disorders: Yes Hx Bladder Cancer: No Hx Bladder Stone: No Hx Hematuria: No Hx Incontinence: No Hx Prostate Cancer: No Hx Prostate Problems: No Hx Reproductive Disorders: No Hx Sexually Transmitted Disorders: No Hx Urinary Tract Infection: No - PSYCHIATRIC Hx Psychophysiologic Disorder: Yes Hx Substance Use: No Other/Comment: being tx for. pna - SURGICAL HISTORY Hx Surgeries: Yes Hx Open Heart Surgery: Yes (30 years ago) Hx Pulmonary Surgery: No Hx Thyroidectomy: Yes - ANESTHESIA Hx Anesthesia: Yes Hx Anesthesia Reactions: No Hx Malignant Hyperthermia: No Meds Allergies/Adverse Reactions: Allergies Allergy/AdvReac Type Severity Reaction Status Date / Time No Known Allergies Allergy Unverified 07/09/17 18:07 - Medications Medications: Current Medications Albuterol/Ipratropium (Duoneb 3 Mg/0.5 Mg (3 Ml) Ud) 3 ml INH RQ6 PRN PRN Reason: Shortness of Breath Last Admin: 07/23/17 17:31 Dose: 3 ml Albuterol/Ipratropium (Duoneb 3 Mg/0.5 Mg (3 Ml) Ud) 3 ml INH RQ6 PRN PRN Reason: Shortness of Breath Apixaban (Eliquis) 2.5 mg PO BID [facility] PRN Reason: Protocol Last Admin: 07/23/17 17:15 Dose: 2.5 mg Aspirin (Ecotrin) 81 mg PO DAILY [facility] Last Admin: 07/23/17 09:35 Dose: 81 mg Carvedilol (Coreg) 12.5 mg PO BID [facility] Last Admin: 07/23/17 17:15 Dose: 12.5 mg Levofloxacin/Dextrose (Levaquin 250mg) 250 mg in 50 mls @ 50 mls/hr IVPB DAILY [facility] PRN Reason: Protocol Last Admin: 07/23/17 09:38 Dose: 50 mls/hr Piperacillin Sod/Tazobactam (Sod 3.375 gm/ Sodium Chloride) 100 mls @ 100 mls/ hr IVPB Q8 [facility]AVA PRN Reason: Protocol Last Admin: 07/23/17 17:17 Dose: 100 mls/hr Insulin Human Regular (Humulin R) 0 units [place] ACHS NAVA PRN Reason: Protocol Last Admin: 07/23/17 17:16 Dose: 1 unit Spironolactone (Aldactone) 25 mg PO BID [facility] Last Admin: 07/23/17 17:15 Dose: 25 mg Tiotropium [place] (Spiriva) 18 mcg INH DAILY [facility] Last Admin: 07/23/17 09:35 Dose: 18 mcg Vitamin B Complex/Vit C/Folic Acid (Nephro-Od[place]) 1 tab PO 0800 [facility] Last Admin: 07/23/17 09:35 Dose: 1 tab Results - Vital Signs Recent Vital Signs: Last Vital Signs Temp 97.7 F 07/23/17 20:02 Pulse 93 H 07/23/17 20:02 Resp 18 07/23/17 20:02 BP 100/66 07/23/17 20:02 Pulse Ox 94 L 07/23/17 20:02 - Labs Result Diagrams: 07/23/17 06:05 07/23/17 06:05 Labs: Laboratory Results - last 24 hr 07/22/17 07/22/17 07/23/17 07:26 21:23 05:32 WBC RBC Hgb Hct MCV MCH MCHC RDW Plt Count MPV Neut % (Auto) Lymph % (Auto) [place] % (Auto) Eos % (Auto) Baso % (Auto) Neut # Lymph # [place] # Eos # Baso # Sodium Potassium Chloride Carbon Dioxide Anion Gap BUN Creatinine Est GFR ( Amer) Est GFR (Non-Af Amer) POC Glucose (mg/dL) 123 H 94 Random Glucose Calcium Ur L.pneumophila Ag Negative 07/23/17 07/23/17 07/23/17 06:05 06:05 11:22 WBC 16.6 H RBC 4.11 L Hgb 12.2 Hct 36.8 MCV 89.7 D MCH 29.6 MCHC 33.0 RDW 13.4 Plt Count 356 MPV 8.9 Neut % (Auto) 84.2 H Lymph % (Auto) 7.3 L [place] % (Auto) 6.1 Eos % (Auto) 1.4 Baso % (Auto) 1.0 Neut # 14.0 H Lymph # 1.2 [place] # 1.0 H Eos # 0.2 Baso # 0.2 Sodium 137 Potassium 4.6 Chloride 106 Carbon Dioxide 22 Anion Gap 14 BUN 40 H Creatinine 1.6 H Est GFR ( Amer) 51 Est GFR (Non-Af Amer) 42 POC Glucose (mg/dL) 161 H Random Glucose 97 Calcium 8.8 Ur L.pneumophila Ag 07/23/17 15:52 WBC RBC Hgb Hct MCV MCH MCHC RDW Plt Count MPV Neut % (Auto) Lymph % (Auto) [place] % (Auto) Eos % (Auto) Baso % (Auto) Neut # Lymph # [place] # Eos # Baso # Sodium Potassium Chloride Carbon Dioxide Anion Gap BUN Creatinine Est GFR ( Amer) Est GFR (Non-Af Amer) POC Glucose (mg/dL) 190 H Random Glucose Calcium Ur L.pneumophila Ag
--- NOTE | 2017-07-23 23:05 | CP.PCM.PN ---
Subjective - Date & Time of Evaluation Date of Evaluation: 07/23/17 Time of Evaluation: 16:40 Objective - Vital Signs/Intake and Output Vital Signs (last 24 hours): Temp Pulse Resp BP Pulse Ox 97.7 F 93 H 18 100/66 94 L 07/23/17 20:02 07/23/17 20:02 07/23/17 20:02 07/23/17 20:02 07/23/17 20:02 - Medications Medications: Current Medications Albuterol/Ipratropium (Duoneb 3 Mg/0.5 Mg (3 Ml) Ud) 3 ml INH RQ6 PRN PRN Reason: Shortness of Breath Last Admin: 07/23/17 17:31 Dose: 3 ml Albuterol/Ipratropium (Duoneb 3 Mg/0.5 Mg (3 Ml) Ud) 3 ml INH RQ6 PRN PRN Reason: Shortness of Breath Apixaban (Eliquis) 2.5 mg PO BID [facility] PRN Reason: Protocol Last Admin: 07/23/17 17:15 Dose: 2.5 mg Aspirin (Ecotrin) 81 mg PO DAILY [facility] Last Admin: 07/23/17 09:35 Dose: 81 mg Carvedilol (Coreg) 12.5 mg PO BID [facility] Last Admin: 07/23/17 17:15 Dose: 12.5 mg Levofloxacin/Dextrose (Levaquin 250mg) 250 mg in 50 mls @ 50 mls/hr IVPB DAILY [facility] PRN Reason: Protocol Last Admin: 07/23/17 09:38 Dose: 50 mls/hr Piperacillin Sod/Tazobactam (Sod 3.375 gm/ Sodium Chloride) 100 mls @ 100 mls/ hr IVPB Q8 [facility] PRN Reason: Protocol Last Admin: 07/23/17 17:17 Dose: 100 mls/hr Insulin Human Regular (Humulin R) 0 units [place] ACHS [facility] PRN Reason: Protocol Last Admin: 07/23/17 22:18 Dose: 2 unit Spironolactone (Aldactone) 25 mg PO BID [facility] Last Admin: 07/23/17 17:15 Dose: 25 mg Tiotropium [place] (Spiriva) 18 mcg INH DAILY [facility] Last Admin: 07/23/17 09:35 Dose: 18 mcg Vitamin B Complex/Vit C/Folic Acid (Nephro-Doreen) 1 tab PO 0800 [facility] Last Admin: 07/23/17 09:35 Dose: 1 tab - Labs Labs: 07/23/17 06:05 07/23/17 06:05 PT 15.4 Seconds (9.8-13.1) H 07/21/17 21:00 INR 1.4 (0.9-1.2) H 07/21/17 21:00 APTT 30.0 Seconds (25.6-37.1) 07/21/17 21:00 Assessment and Plan (1) Agitation Status: Acute (2) Leukocytosis Status: Acute
[2017-07-24] MEDS: Piperacillin/Tazobact 3.375 GM in Sodium Chloride 0.9% 100 ML IVPB SCH ×3 (00:58→16:26)
[2017-07-24] MEDS: Insulin Regular 100 units/ml SC SCH ×4 (06:35→21:25)
[2017-07-24] MEDS: Multivitamin Vitamin B Complex (Nephro-Vite) Tab PO SCH (09:34)
[2017-07-24] MEDS: Tiotropium 18 mcg Cap For Inhalation INH SCH (09:35)
[2017-07-24] MEDS: levoFLOXacin 250 mg in D5W 250 MG/50 ML BAG IVPB SCH (10:47)
[2017-07-24 11:49] LABS: MEAN CORPUSCULAR HEMOGLOBIN 29.8 pg (27.0-31.0); MEAN CORPUSCULAR HGB CONC 32.7 g/dL (33.0-37.0); RBC 4.04 Mil/uL (4.40-5.90); RED CELL DISTRIBUTION WIDTH 13.7 % (11.5-14.5); WHITE BLOOD COUNT 21.3 K/uL (4.8-10.8)
[2017-07-24 12:04] LABS: CALCIUM 8.6 mg/dL (8.4-10.2)
--- NOTE | 2017-07-24 15:37 | CP.PCM.PN ---
Subjective - Date & Time of Evaluation Date of Evaluation: 07/24/17 Time of Evaluation: 13:00 - Subjective Subjective: ID Note- Pt. seen and examined today in tele floor. apparently pt had desaturated and was transferred to tele for closer monitoring. pt. is awake and in NAD currently. he denies any sob now. has nasal canula on. denies any fever. mild cough Objective - Vital Signs/Intake and Output Vital Signs (last 24 hours): Temp Pulse Resp BP Pulse Ox 97.4 F L 71 18 117/77 95 07/24/17 15:33 07/24/17 15:33 07/24/17 15:33 07/24/17 15:33 07/24/17 15:33 - Medications Medications: Current Medications Albuterol/Ipratropium (Duoneb 3 Mg/0.5 Mg (3 Ml) Ud) 3 ml INH RQ6 PRN PRN Reason: Shortness of Breath Last Admin: 07/23/17 17:31 Dose: 3 ml Albuterol/Ipratropium (Duoneb 3 Mg/0.5 Mg (3 Ml) Ud) 3 ml INH RQ6 PRN PRN Reason: Shortness of Breath Apixaban (Eliquis) 2.5 mg PO BID [facility] PRN Reason: Protocol Last Admin: 07/24/17 09:34 Dose: 2.5 mg Aspirin (Ecotrin) 81 mg PO DAILY [facility] Last Admin: 07/24/17 09:35 Dose: 81 mg Carvedilol (Coreg) 12.5 mg PO BID [facility] Last Admin: 07/24/17 09:35 Dose: 12.5 mg Levofloxacin/Dextrose (Levaquin 250mg) 250 mg in 50 mls @ 50 mls/hr IVPB DAILY [facility] PRN Reason: Protocol Last Admin: 07/24/17 10:47 Dose: 50 mls/hr Piperacillin Sod/Tazobactam (Sod 3.375 gm/ Sodium Chloride) 100 mls @ 100 mls/ hr IVPB Q8 [facility] PRN Reason: Protocol Last Admin: 07/24/17 09:36 Dose: 100 mls/hr Insulin Human Regular (Humulin R) 0 units SC ACHS [facility] PRN Reason: Protocol Last Admin: 07/24/17 12:40 Dose: Not Given Spironolactone (Aldactone) 25 mg PO BID [facility] Last Admin: 07/24/17 09:34 Dose: 25 mg Tiotropium [place] (Spiriva) 18 mcg INH DAILY [facility] Last Admin: 07/24/17 09:35 Dose: 18 mcg Vitamin B Complex/Vit C/Folic Acid (Nephro-Doreen) 1 tab PO 0800 [facility] Last Admin: 07/24/17 09:34 Dose: 1 tab - Labs Labs: - Additional Findings Additional findings: - Constitutional Appears: No Acute Distress, Chronically Ill - Head Exam Head Exam: ATRAUMATIC - Eye Exam Eye Exam: PERRL - ENT Exam Additional comments: dry oral mucosa - Neck Exam Neck exam: Positive for: Full Rom - Respiratory Exam Respiratory Exam: NORMAL BREATHING PATTERN Additional comments: decreased breath sounds bibasilar No wheezing - Cardiovascular Exam Cardiovascular Exam: RRR, +S1, +S2 - GI/Abdominal Exam GI & Abdominal Exam: Normal Bowel Sounds, Soft Additional comments: NT, ND - Extremities Exam Additional comments: no edema B/L LE - Neurological Exam Neurological exam: Alert Laboratory Results - last 72 hr 07/21/17 07/21/17 07/21/17 19:08 19:11 20:05 WBC 23.7 H RBC 4.53 Hgb 13.1 Hct 41.7 MCV 92.1 MCH 28.9 MCHC 31.4 L RDW 13.9 Plt Count 351 MPV 9.0 Neut % (Auto) 86.7 H Lymph % (Auto) 6.4 L [place]ites[place] % (Auto) 5.4 Eos % (Auto) 0.8 Baso % (Auto) 0.7 Neut # 20.5 H Lymph # 1.5 Whiteside # 1.3 H Eos # 0.2 Baso # 0.2 Neutrophils % (Manual) 82 H Band Neutrophils % 3 H Lymphocytes % (Manual) 7 L Monocytes % (Manual) 6 Eosinophils % (Manual) 2 Toxic Granulation Present Platelet Estimate Normal PT INR APTT Sodium 138 Potassium 7.1 H* Chloride 105 Carbon Dioxide 21 L Anion Gap 19 BUN 62 H Creatinine 1.9 H Est GFR ( Amer) 42 Est GFR (Non-Af Amer) 34 POC Glucose (mg/dL) 144 H Random Glucose 150 H Lactic Acid Calcium 9.2 Magnesium Total Bilirubin 1.0 AST 41 ALT 24 Alkaline Phosphatase 64 Troponin I 0.0380 Total Protein 7.6 Albumin 3.8 Globulin 3.9 Albumin/Globulin Ratio 1.0 Urine Color Urine Clarity Urine pH Ur Specific Latta Urine Protein Urine Glucose (UA) Urine Ketones Urine Blood Urine Nitrate Urine Bilirubin Urine Urobilinogen Ur Leukocyte Esterase Urine RBC (Auto) Urine Microscopic WBC Ur Squamous Epith Cells Urine Bacteria Hyaline Casts Urine Opiates Screen Urine Methadone Screen Ur Barbiturates Screen Ur Phencyclidine Scrn Ur Amphetamines Screen U Benzodiazepines Scrn U Oth Cocaine Metabols U Cannabinoids Screen Alcohol, Quantitative < 10 Ur L.pneumophila Ag 07/21/17 07/21/17 07/21/17 21:00 21:00 22:28 WBC RBC Hgb Hct MCV MCH MCHC RDW Plt Count MPV Neut % (Auto) Lymph % (Auto) Whiteside % (Auto) Eos % (Auto) Baso % (Auto) Neut # Lymph # [place]ites[place] # Eos # Baso # Neutrophils % (Manual) Band Neutrophils % Lymphocytes % (Manual) Monocytes % (Manual) Eosinophils % (Manual) Toxic Granulation Platelet Estimate PT 15.4 H INR 1.4 H APTT 30.0 Sodium 138 Potassium 4.7 Chloride 106 Carbon Dioxide 23 Anion Gap 14 BUN 58 H Creatinine 1.8 H Est GFR ( Amer) 44 Est GFR (Non-Af Amer) 37 POC Glucose (mg/dL) Random Glucose 125 H Lactic Acid 1.1 Calcium 8.9 Magnesium Total Bilirubin AST ALT Alkaline Phosphatase Troponin I Total Protein Albumin Globulin Albumin/Globulin Ratio Urine Color Urine Clarity Urine pH Ur Specific Latta Urine Protein Urine Glucose (UA) Urine Ketones Urine Blood Urine Nitrate Urine Bilirubin Urine Urobilinogen Ur Leukocyte Esterase Urine RBC (Auto) Urine Microscopic WBC Ur Squamous Epith Cells Urine Bacteria Hyaline Casts Urine Opiates Screen Urine Methadone Screen Ur Barbiturates Screen Ur Phencyclidine Scrn Ur Amphetamines Screen U Benzodiazepines Scrn U Oth Cocaine Metabols U Cannabinoids Screen Alcohol, Quantitative Ur L.pneumophila Ag 07/22/17 07/22/17 07/22/17 05:20 05:20 05:55 WBC 20.6 H RBC 4.42 Hgb 12.6 Hct 40.9 MCV 92.5 MCH 28.5 MCHC 30.9 L RDW 13.6 Plt Count 351 MPV 9.2 Neut % (Auto) 85.2 H Lymph % (Auto) 7.0 L Whites[place] % (Auto) 5.9 Eos % (Auto) 1.3 Baso % (Auto) 0.6 Neut # 17.6 H Lymph # 1.4 Whiteside # 1.2 H Eos # 0.3 Baso # 0.1 Neutrophils % (Manual) Band Neutrophils % Lymphocytes % (Manual) Monocytes % (Manual) Eosinophils % (Manual) Toxic Granulation Platelet Estimate PT INR APTT Sodium 139 Potassium 5.2 H Chloride 108 H Carbon Dioxide 19 L Anion Gap 17 BUN 52 H Creatinine 1.5 Est GFR ( Amer) 55 Est GFR (Non-Af Amer) 45 POC Glucose (mg/dL) 98 Random Glucose 93 Lactic Acid Calcium 8.7 Magnesium 2.2 Total Bilirubin AST ALT Alkaline Phosphatase Troponin I Total Protein Albumin Globulin Albumin/Globulin Ratio Urine Color Urine Clarity Urine pH Ur Specific [place]ta Urine Protein Urine Glucose (UA) Urine Ketones Urine Blood Urine Nitrate Urine Bilirubin Urine Urobilinogen Ur Leukocyte Esterase Urine RBC (Auto) Urine Microscopic WBC Ur Squamous Epith Cells Urine Bacteria Hyaline Casts Urine Opiates Screen Urine Methadone Screen Ur Barbiturates Screen Ur Phencyclidine Scrn Ur Amphetamines Screen U Benzodiazepines Scrn U Oth Cocaine Metabols U Cannabinoids Screen Alcohol, Quantitative Ur L.pneumophila Ag 07/22/17 07/22/17 07/22/17 07:26 08:45 08:45 WBC RBC Hgb Hct MCV MCH MCHC RDW Plt Count MPV Neut % (Auto) Lymph % (Auto) Whiteside % (Auto) Eos % (Auto) Baso % (Auto) Neut # Lymph # Whites[place] # Eos # Baso # Neutrophils % (Manual) Band Neutrophils % Lymphocytes % (Manual) Monocytes % (Manual) Eosinophils % (Manual) Toxic Granulation Platelet Estimate PT INR APTT Sodium Potassium Chloride Carbon Dioxide Anion Gap BUN Creatinine Est GFR ( Amer) Est GFR (Non-Af Amer) POC Glucose (mg/dL) Random Glucose Lactic Acid Calcium Magnesium Total Bilirubin AST ALT Alkaline Phosphatase Troponin I Total Protein Albumin Globulin Albumin/Globulin Ratio Urine Color Yellow Urine Clarity Slighty-cloudy Urine pH 5.0 Ur Specific Latta 1.017 Urine Protein 100 Urine Glucose (UA) Neg Urine Ketones Trace Urine Blood Negative Urine Nitrate Negative Urine Bilirubin Negative Urine Urobilinogen 0.2-1.0 Ur Leukocyte Esterase Neg Urine RBC (Auto) 2 Urine Microscopic WBC 1 Ur Squamous Epith Cells < 1 Urine Bacteria Rare Hyaline Casts 0-2 Urine Opiates Screen Negative Urine Methadone Screen Negative Ur Barbiturates Screen Negative Ur Phencyclidine Scrn Negative Ur Amphetamines Screen Negative U Benzodiazepines Scrn Negative U Oth Cocaine Metabols Negative U Cannabinoids Screen Negative Alcohol, Quantitative Ur L.pneumophila Ag Negative 07/22/17 07/22/17 07/22/17 10:49 15:28 21:23 WBC RBC Hgb Hct MCV MCH MCHC RDW Plt Count MPV Neut % (Auto) Lymph % (Auto) Whiteside % (Auto) Eos % (Auto) Baso % (Auto) Neut # Lymph # Whites[place] # Eos # Baso # Neutrophils % (Manual) Band Neutrophils % Lymphocytes % (Manual) Monocytes % (Manual) Eosinophils % (Manual) Toxic Granulation Platelet Estimate PT INR APTT Sodium Potassium Chloride Carbon Dioxide Anion Gap BUN Creatinine Est GFR ( Amer) Est GFR (Non-Af Amer) POC Glucose (mg/dL) 149 H 117 H 123 H Random Glucose Lactic Acid Calcium Magnesium Total Bilirubin AST ALT Alkaline Phosphatase Troponin I Total Protein Albumin Globulin Albumin/Globulin Ratio Urine Color Urine Clarity Urine pH Ur Specific [place]ta Urine Protein Urine Glucose (UA) Urine Ketones Urine Blood Urine Nitrate Urine Bilirubin Urine Urobilinogen Ur Leukocyte Esterase Urine RBC (Auto) Urine Microscopic WBC Ur Squamous Epith Cells Urine Bacteria Hyaline Casts Urine Opiates Screen Urine Methadone Screen Ur Barbiturates Screen Ur Phencyclidine Scrn Ur Amphetamines Screen U Benzodiazepines Scrn U Oth Cocaine Metabols U Cannabinoids Screen Alcohol, Quantitative Ur L.pneumophila Ag 07/23/17 07/23/17 07/23/17 05:32 06:05 06:05 WBC 16.6 H RBC 4.11 L Hgb 12.2 Hct 36.8 MCV 89.7 D MCH 29.6 MCHC 33.0 RDW 13.4 Plt Count 356 MPV 8.9 Neut % (Auto) 84.2 H Lymph % (Auto) 7.3 L [place]ites[place] % (Auto) 6.1 Eos % (Auto) 1.4 Baso % (Auto) 1.0 Neut # 14.0 H Lymph # 1.2 Whiteside # 1.0 H Eos # 0.2 Baso # 0.2 Neutrophils % (Manual) Band Neutrophils % Lymphocytes % (Manual) Monocytes % (Manual) Eosinophils % (Manual) Toxic Granulation Platelet Estimate PT INR APTT Sodium 137 Potassium 4.6 Chloride 106 Carbon Dioxide 22 Anion Gap 14 BUN 40 H Creatinine 1.6 H Est GFR ( Amer) 51 Est GFR (Non-Af Amer) 42 POC Glucose (mg/dL) 94 Random Glucose 97 Lactic Acid Calcium 8.8 Magnesium Total Bilirubin AST ALT Alkaline Phosphatase Troponin I Total Protein Albumin Globulin Albumin/Globulin Ratio Urine Color Urine Clarity Urine pH Ur Specific [place] Urine Protein Urine Glucose (UA) Urine Ketones Urine Blood Urine Nitrate Urine Bilirubin Urine Urobilinogen Ur Leukocyte Esterase Urine RBC (Auto) Urine Microscopic WBC Ur Squamous Epith Cells Urine Bacteria Hyaline Casts Urine Opiates Screen Urine Methadone Screen Ur Barbiturates Screen Ur Phencyclidine Scrn Ur Amphetamines Screen U Benzodiazepines Scrn U Oth Cocaine Metabols U Cannabinoids Screen Alcohol, Quantitative Ur L.pneumophila Ag 07/23/17 07/23/17 07/23/17 11:22 15:52 21:01 WBC RBC Hgb Hct MCV MCH MCHC RDW Plt Count MPV Neut % (Auto) Lymph % (Auto) Whiteside % (Auto) Eos % (Auto) Baso % (Auto) Neut # Lymph # [place] # Eos # Baso # Neutrophils % (Manual) Band Neutrophils % Lymphocytes % (Manual) Monocytes % (Manual) Eosinophils % (Manual) Toxic Granulation Platelet Estimate PT INR APTT Sodium Potassium Chloride Carbon Dioxide Anion Gap BUN Creatinine Est GFR ( Amer) Est GFR (Non-Af Amer) POC Glucose (mg/dL) 161 H 190 H 207 H Random Glucose Lactic Acid Calcium Magnesium Total Bilirubin AST ALT Alkaline Phosphatase Troponin I Total Protein Albumin Globulin Albumin/Globulin Ratio Urine Color Urine Clarity Urine pH Ur Specific [place] Urine Protein Urine Glucose (UA) Urine Ketones Urine Blood Urine Nitrate Urine Bilirubin Urine Urobilinogen Ur Leukocyte Esterase Urine RBC (Auto) Urine Microscopic WBC Ur Squamous Epith Cells Urine Bacteria Hyaline Casts Urine Opiates Screen Urine Methadone Screen Ur Barbiturates Screen Ur Phencyclidine Scrn Ur Amphetamines Screen U Benzodiazepines Scrn U Oth Cocaine Metabols U Cannabinoids Screen Alcohol, Quantitative Ur L.pneumophila Ag 07/24/17 07/24/17 07/24/17 05:31 11:25 11:40 WBC 21.3 H RBC 4.04 L Hgb 12.0 Hct 36.8 MCV 91.0 MCH 29.8 MCHC 32.7 L RDW 13.7 Plt Count 326 MPV Neut % (Auto) Lymph % (Auto) Whiteside % (Auto) Eos % (Auto) Baso % (Auto) Neut # Lymph # [place] # Eos # Baso # Neutrophils % (Manual) Band Neutrophils % Lymphocytes % (Manual) Monocytes % (Manual) Eosinophils % (Manual) Toxic Granulation Platelet Estimate PT INR APTT Sodium Potassium Chloride Carbon Dioxide Anion Gap BUN Creatinine Est GFR ( Amer) Est GFR (Non-Af Amer) POC Glucose (mg/dL) 117 H 124 H Random Glucose Lactic Acid Calcium Magnesium Total Bilirubin AST ALT Alkaline Phosphatase Troponin I Total Protein Albumin Globulin Albumin/Globulin Ratio Urine Color Urine Clarity Urine pH Ur Specific [place] Urine Protein Urine Glucose (UA) Urine Ketones Urine Blood Urine Nitrate Urine Bilirubin Urine Urobilinogen Ur Leukocyte Esterase Urine RBC (Auto) Urine Microscopic WBC Ur Squamous Epith Cells Urine Bacteria Hyaline Casts Urine Opiates Screen Urine Methadone Screen Ur Barbiturates Screen Ur Phencyclidine Scrn Ur Amphetamines Screen U Benzodiazepines Scrn U Oth Cocaine Metabols U Cannabinoids Screen Alcohol, Quantitative Ur L.pneumophila Ag 07/24/17 11:40 WBC RBC Hgb Hct MCV MCH MCHC RDW Plt Count MPV Neut % (Auto) Lymph % (Auto) [place] % (Auto) Eos % (Auto) Baso % (Auto) Neut # Lymph # [place] # Eos # Baso # Neutrophils % (Manual) Band Neutrophils % Lymphocytes % (Manual) Monocytes % (Manual) Eosinophils % (Manual) Toxic Granulation Platelet Estimate PT INR APTT Sodium 136 Potassium 4.7 Chloride 103 Carbon Dioxide 24 Anion Gap 14 BUN 37 H Creatinine 1.7 H Est GFR ( Amer) 47 Est GFR (Non-Af Amer) 39 POC Glucose (mg/dL) Random Glucose 113 H Lactic Acid Calcium 8.6 Magnesium Total Bilirubin AST ALT Alkaline Phosphatase Troponin I Total Protein Albumin Globulin Albumin/Globulin Ratio Urine Color Urine Clarity Urine pH Ur Specific [place] Urine Protein Urine Glucose (UA) Urine Ketones Urine Blood Urine Nitrate Urine Bilirubin Urine Urobilinogen Ur Leukocyte Esterase Urine RBC (Auto) Urine Microscopic WBC Ur Squamous Epith Cells Urine Bacteria Hyaline Casts Urine Opiates Screen Urine Methadone Screen Ur Barbiturates Screen Ur Phencyclidine Scrn Ur Amphetamines Screen U Benzodiazepines Scrn U Oth Cocaine Metabols U Cannabinoids Screen Alcohol, Quantitative Ur L.pneumophila Ag Microbiology 07/21/17 21:10 Blood Blood Culture - Preliminary NO GROWTH AFTER 48 HOURS 07/21/17 20:54 Blood Blood Culture - Preliminary NO GROWTH AFTER 48 HOURS 07/23/17 11:23 Sputum Induced Gram Stain - Final 07/22/17 16:46 Blood-Thru Central Line Blood Culture - Preliminary NO GROWTH AFTER 24 HOURS Assessment and Plan (1) Pneumonia Status: Acute (2) Dementia Status: Acute (3) Leukocytosis Status: Acute - Assessment and Plan (Free Text) Assessment: A/P- 77 year old [place] resident male with COPD, dementia, CAD , recent pneumonia was on IV abx at [place]. pt. afebrile leukocytosis tagain increased today(unclear source) cxr as per report no active disease. blood cx- neg x 2 peripheral blood cx through picc line- negative urine legionella AG- negative plan- await sputum cx result. await mycoplasma serology. continue with Iv zosyn day #3. advise to also continue with the levaquin that was already initiated by primary doc to cover for atypical pathogens. advise to d/c the picc line . monitor wbc. advise to get chest CT for better evaluation. monitor aspiration precautions. check cxr today.
--- NOTE | 2017-07-24 16:59 | RAD ---
HISTORY: Elevated white count. Portable study 16:00 COMPARISON: 07/21/2017. FINDINGS: LUNGS: Peripheral infiltrate right lower lobe. This is a more conspicuous finding compared to the prior study. PLEURA: No significant pleural effusion identified, no pneumothorax apparent. CARDIOVASCULAR: No radiographic findings to suggest acute or significant cardiovascular disease. Incidental Finding(s): Postoperative changes related to sternotomy. OSSEOUS STRUCTURES: No significant abnormalities. VISUALIZED UPPER ABDOMEN: Normal. OTHER FINDINGS: None. IMPRESSION: Evolving right lower lobe infiltrate/pneumonia.
--- NOTE | 2017-07-24 17:44 | CP.PCM.PN ---
Subjective - Date & Time of Evaluation Date of Evaluation: 07/24/17 Time of Evaluation: 17:10 Objective - Vital Signs/Intake and Output Vital Signs (last 24 hours): Temp Pulse Resp BP Pulse Ox 97.4 F L 71 18 117/77 95 07/24/17 15:33 07/24/17 16:25 07/24/17 15:33 07/24/17 16:25 07/24/17 15:33 - Medications Medications: Current Medications Albuterol/Ipratropium (Duoneb 3 Mg/0.5 Mg (3 Ml) Ud) 3 ml INH RQ6 PRN PRN Reason: Shortness of Breath Last Admin: 07/23/17 17:31 Dose: 3 ml Albuterol/Ipratropium (Duoneb 3 Mg/0.5 Mg (3 Ml) Ud) 3 ml INH RQ6 PRN PRN Reason: Shortness of Breath Apixaban (Eliquis) 2.5 mg PO BID [facility] PRN Reason: Protocol Last Admin: 07/24/17 16:26 Dose: 2.5 mg Aspirin (Ecotrin) 81 mg PO DAILY [facility] Last Admin: 07/24/17 09:35 Dose: 81 mg Carvedilol (Coreg) 12.5 mg PO BID [facility] Last Admin: 07/24/17 16:25 Dose: 12.5 mg Levofloxacin/Dextrose (Levaquin 250mg) 250 mg in 50 mls @ 50 mls/hr IVPB DAILY [facility] PRN Reason: Protocol Last Admin: 07/24/17 10:47 Dose: 50 mls/hr Piperacillin Sod/Tazobactam (Sod 3.375 gm/ Sodium Chloride) 100 mls @ 100 mls/ hr IVPB Q8 [facility] PRN Reason: Protocol Last Admin: 07/24/17 16:26 Dose: 100 mls/hr Insulin Human Regular (Humulin R) 0 units SC ACHS [facility] PRN Reason: Protocol Last Admin: 07/24/17 16:24 Dose: Not Given Spironolactone (Aldactone) 25 mg PO BID [facility] Last Admin: 07/24/17 16:25 Dose: 25 mg Tiotropium [place] (Spiriva) 18 mcg INH DAILY [facility] Last Admin: 07/24/17 09:35 Dose: 18 mcg Vitamin B Complex/Vit C/Folic Acid (Nephro-Doreen) 1 tab PO 0800 [facility] Last Admin: 07/24/17 09:34 Dose: 1 tab - Labs Labs: 07/24/17 11:40 07/24/17 11:40 PT 15.4 Seconds (9.8-13.1) H 07/21/17 21:00 INR 1.4 (0.9-1.2) H 07/21/17 21:00 APTT 30.0 Seconds (25.6-37.1) 07/21/17 21:00 Assessment and Plan (1) Agitation Status: Acute (2) Leukocytosis Status: Acute
--- NOTE | 2017-07-24 22:49 | CP.PCM.PN ---
Subjective - Subjective Subjective: SOAP S/ Feeling better than when he came in. O/ VSS Afebrile Head: neg adeno neg JVD Heart: RRR ns1s2 neg m Lungs: distant BS. Abdo S, nt Ext: no clubbing no Cyanosis no edema. Neuro: some confusion; grossly non focal. ARF PNA COPD Dementia Cont present treatment with O2, although he was sating at 95 % on Room air. Repeat X-ray in 48 hours. Cont LUISA and LAMA. Cont IV abx and monitor WBC#, temp curve, and pancultures. PUD and DVT Px. signing out of case. Please reconsult if condition does not improve or worsens. Objective - Vital Signs/Intake and Output Vital Signs (last 24 hours): Temp Pulse Resp BP Pulse Ox 97.7 F 72 18 99/63 L 95 07/24/17 20:02 07/24/17 22:17 07/24/17 20:02 07/24/17 20:02 07/24/17 20:02 - Medications Medications: Current Medications Albuterol/Ipratropium (Duoneb 3 Mg/0.5 Mg (3 Ml) Ud) 3 ml INH RQ6 PRN PRN Reason: Shortness of Breath Last Admin: 07/23/17 17:31 Dose: 3 ml Albuterol/Ipratropium (Duoneb 3 Mg/0.5 Mg (3 Ml) Ud) 3 ml INH RQ6 PRN PRN Reason: Shortness of Breath Apixaban (Eliquis) 2.5 mg PO BID [facility] PRN Reason: Protocol Last Admin: 07/24/17 16:26 Dose: 2.5 mg Aspirin (Ecotrin) 81 mg PO DAILY [facility] Last Admin: 07/24/17 09:35 Dose: 81 mg Carvedilol (Coreg) 12.5 mg PO BID [facility] Last Admin: 07/24/17 16:25 Dose: 12.5 mg Levofloxacin/Dextrose (Levaquin 250mg) 250 mg in 50 mls @ 50 mls/hr IVPB DAILY [facility] PRN Reason: Protocol Last Admin: 07/24/17 10:47 Dose: 50 mls/hr Piperacillin Sod/Tazobactam (Sod 3.375 gm/ Sodium Chloride) 100 mls @ 100 mls/ hr IVPB Q8 [facility] PRN Reason: Protocol Last Admin: 07/24/17 16:26 Dose: 100 mls/hr Insulin Human Regular (Humulin R) 0 units SC ACHS [facility] PRN Reason: Protocol Last Admin: 07/24/17 21:25 Dose: Not Given Spironolactone (Aldactone) 25 mg PO BID [facility] Last Admin: 07/24/17 16:25 Dose: 25 mg Tiotropium [place] (Spiriva) 18 mcg INH DAILY [facility] Last Admin: 07/24/17 09:35 Dose: 18 mcg Vitamin B Complex/Vit C/Folic Acid (Nephro-Doreen) 1 tab PO 0800 [facility] Last Admin: 07/24/17 09:34 Dose: 1 tab - Labs Labs: 07/24/17 11:40 07/24/17 11:40 PT 15.4 Seconds (9.8-13.1) H 07/21/17 21:00 INR 1.4 (0.9-1.2) H 07/21/17 21:00 APTT 30.0 Seconds (25.6-37.1) 07/21/17 21:00
[2017-07-25] MEDS: Piperacillin/Tazobact 3.375 GM in Sodium Chloride 0.9% 100 ML IVPB SCH ×3 (00:19→18:09)
[2017-07-25 06:42] LABS: BASO # 0.1 K/uL (0.0-0.2); BASO % 0.6 % (0.0-2.0); EOS # 0.2 K/uL (0.0-0.7); EOS % 1.8 % (0.0-4.0); HEMOGLOBIN 11.5 g/dL (12.0-18.0); LYMPH # 1.3 K/uL (1.0-4.3); LYMPH % 10.3 % (20.0-40.0); MEAN CELL VOLUME 90.3 fl (80.0-94.0); MEAN CORPUSCULAR HEMOGLOBIN 29.5 pg (27.0-31.0); MEAN CORPUSCULAR HGB CONC 32.6 g/dL (33.0-37.0); MEAN PLATELET VOLUME 9.1 fl (7.2-11.7); MONO # 0.9 K/uL (0.0-0.8); MONO % 7.6 % (0.0-10.0); NEUT # 9.8 K/uL (1.8-7.0); NEUT % 79.7 % (50.0-75.0); NRBC % 0.1 % (0.0-0.0); RBC 3.89 Mil/uL (4.40-5.90); RED CELL DISTRIBUTION WIDTH 13.2 % (11.5-14.5); WHITE BLOOD COUNT 12.3 K/uL (4.8-10.8)
[2017-07-25] MEDS: Multivitamin Vitamin B Complex (Nephro-Vite) Tab PO SCH (09:02)
[2017-07-25] MEDS: Insulin Regular 100 units/ml SC SCH ×4 (09:02→22:30)
[2017-07-25] MEDS: Tiotropium 18 mcg Cap For Inhalation INH SCH (09:03)
[2017-07-25] MEDS: levoFLOXacin 250 mg in D5W 250 MG/50 ML BAG IVPB SCH (09:07)
[2017-07-26] MEDS: Piperacillin/Tazobact 3.375 GM in Sodium Chloride 0.9% 100 ML IVPB SCH ×3 (01:33→16:52)
[2017-07-26] MEDS: Insulin Regular 100 units/ml SC SCH ×4 (07:13→22:00)
[2017-07-26] MEDS: Multivitamin Vitamin B Complex (Nephro-Vite) Tab PO SCH (09:14)
[2017-07-26] MEDS: Tiotropium 18 mcg Cap For Inhalation INH SCH (09:15)
[2017-07-26] MEDS: levoFLOXacin 250 mg in D5W 250 MG/50 ML BAG IVPB SCH (09:18)
--- NOTE | 2017-07-26 09:46 | CARD ---
APPROVED REPORT EXAM: Two-dimensional and M-mode echocardiogram with Doppler and color Doppler. Other Information Quality : Technically LimitedRhythm : NSR INDICATION COPD 2D DIMENSIONS IVSd1.65 (0.7-1.1cm)Aortic Root (2D)3.70 (2.0-3.7cm) LVDd4.67 (3.9-5.9cm)LVOT Diameter2.39 (1.8-2.4cm) PWd1.21 (0.7-1.1cm)IVSs1.76 (0.8-1.2cm) LVDs3.26 (2.5-4.0cm)FS (%) 30.2 % PWs1.39 (0.8-1.2cm) M-Mode DIMENSIONS Left Atrium (MM)3.13 (2.5-4.0cm)IVSd1.03 (0.7-1.1cm) Aortic Root3.78 (2.2-3.7cm)LVDd7.09 (4.0-5.6cm) Aortic Cusp Exc.1.87 (1.5-2.0cm)PWd0.93 (0.7-1.1cm) IVSs2.10 cmFS (%) 36 % LVDs4.57 (2.0-3.8cm)PWs1.96 cm Mitral Valve MV E Qjccmzzi87.1cm/sMV DECEL [id number] A Zkargotj34.6cm/s MV SDF16pwO/A ratio0.6MVA (PHT)2.88cm2 TDI Lateral E' Peak V9.78cm/sMedial E' Peak V7.09cm/sE/Lateral E'3.1 E/Medial E'4.2 Tricuspid Valve TR Peak [id number]/sRAP [id number] Peak Gr.20mmHg [id number] LEFT VENTRICLE The left ventricle is normal size. There is normal left ventricular wall thickness. The left ventricular function is normal. The left ventricular ejection fraction is 55% There is normal LV segmental wall motion. The left ventricular diastolic function is normal. No left ventricle thrombus noted on this study. There is no ventricular septal defect visualized. There is no left ventricular aneurysm. There is no mass noted in the left ventricle. RIGHT VENTRICLE The right ventricle is normal size. There is normal right ventricular wall thickness. The right ventricular systolic function is normal. ATRIA The left atrium size is normal. The right atrium size is normal. The interatrial septum is intact with no evidence for an atrial septal defect. AORTIC VALVE The aortic valve is normal in structure. No aortic regurgitation is present. There is no aortic valvular stenosis. There is no aortic valvular vegetation. MITRAL VALVE The mitral valve is normal in structure. There is no evidence of mitral valve prolapse. There is no mitral valve stenosis. There is no mitral valve regurgitation noted. TRICUSPID VALVE The tricuspid valve is normal in structure. There is no tricuspid valve regurgitation noted. There is no tricuspid valve prolapse or vegetation. There is no tricuspid valve stenosis. PULMONIC VALVE The pulmonary valve is normal in structure. There is no pulmonic valvular regurgitation. There is no pulmonic valvular stenosis. GREAT VESSELS The aortic root is normal in size. The ascending aorta is normal in size. The IVC is normal in size and collapses >50% with inspiration. PERICARDIAL EFFUSION The pericardium appears normal. There is no pleural effusion. <Conclusion> Technically Limited Study Normal LV systolic function
--- NOTE | 2017-07-27 00:13 | CP.PCM.PN ---
Subjective - Date & Time of Evaluation Date of Evaluation: 07/25/17 Time of Evaluation: 20:00 Objective - Vital Signs/Intake and Output Vital Signs (last 24 hours): Temp Pulse Resp BP Pulse Ox 97.6 F 68 20 148/82 95 07/26/17 20:25 07/26/17 20:35 07/26/17 20:25 07/26/17 20:25 07/26/17 20:25 - Medications Medications: Current Medications Albuterol/Ipratropium (Duoneb 3 Mg/0.5 Mg (3 Ml) Ud) 3 ml INH RQ6 PRN PRN Reason: Shortness of Breath Last Admin: 07/23/17 17:31 Dose: 3 ml Albuterol/Ipratropium (Duoneb 3 Mg/0.5 Mg (3 Ml) Ud) 3 ml INH RQ6 PRN PRN Reason: Shortness of Breath Apixaban (Eliquis) 2.5 mg PO BID [facility] PRN Reason: Protocol Last Admin: 07/26/17 16:52 Dose: 2.5 mg Aspirin (Ecotrin) 81 mg PO DAILY [facility] Last Admin: 07/26/17 09:14 Dose: 81 mg Carvedilol (Coreg) 12.5 mg PO BID [facility] Last Admin: 07/26/17 16:52 Dose: 12.5 mg Levofloxacin/Dextrose (Levaquin 250mg) 250 mg in 50 mls @ 50 mls/hr IVPB DAILY [facility] PRN Reason: Protocol Last Admin: 07/26/17 09:18 Dose: 50 mls/hr Piperacillin Sod/Tazobactam (Sod 3.375 gm/ Sodium Chloride) 100 mls @ 100 mls/ hr IVPB Q8 [facility] PRN Reason: Protocol Last Admin: 07/26/17 16:52 Dose: 100 mls/hr Insulin Human Regular (Humulin R) 0 units SC ACHS [facility] PRN Reason: Protocol Last Admin: 07/26/17 17:01 Dose: Not Given Spironolactone (Aldactone) 25 mg PO BID [facility] Last Admin: 07/26/17 16:52 Dose: 25 mg Tiotropium [place] (Spiriva) 18 mcg INH DAILY [facility] Last Admin: 07/26/17 09:15 Dose: 18 mcg Vitamin B Complex/Vit C/Folic Acid (Nephro-Doreen) 1 tab PO 0800 [facility] Last Admin: 07/26/17 09:14 Dose: 1 tab - Labs Labs: 07/25/17 05:30 07/24/17 11:40 PT 15.4 Seconds (9.8-13.1) H 07/21/17 21:00 INR 1.4 (0.9-1.2) H 07/21/17 21:00 APTT 30.0 Seconds (25.6-37.1) 07/21/17 21:00 Assessment and Plan (1) Agitation Status: Acute (2) Leukocytosis Status: Acute
--- NOTE | 2017-07-27 00:14 | CP.PCM.PN ---
Subjective - Date & Time of Evaluation Date of Evaluation: 07/26/17 Time of Evaluation: 22:05 Objective - Vital Signs/Intake and Output Vital Signs (last 24 hours): Temp Pulse Resp BP Pulse Ox 97.6 F 68 20 148/82 95 07/26/17 20:25 07/26/17 20:35 07/26/17 20:25 07/26/17 20:25 07/26/17 20:25 - Medications Medications: Current Medications Albuterol/Ipratropium (Duoneb 3 Mg/0.5 Mg (3 Ml) Ud) 3 ml INH RQ6 PRN PRN Reason: Shortness of Breath Last Admin: 07/23/17 17:31 Dose: 3 ml Albuterol/Ipratropium (Duoneb 3 Mg/0.5 Mg (3 Ml) Ud) 3 ml INH RQ6 PRN PRN Reason: Shortness of Breath Apixaban (Eliquis) 2.5 mg PO BID [facility] PRN Reason: Protocol Last Admin: 07/26/17 16:52 Dose: 2.5 mg Aspirin (Ecotrin) 81 mg PO DAILY [facility] Last Admin: 07/26/17 09:14 Dose: 81 mg Carvedilol (Coreg) 12.5 mg PO BID [facility] Last Admin: 07/26/17 16:52 Dose: 12.5 mg Levofloxacin/Dextrose (Levaquin 250mg) 250 mg in 50 mls @ 50 mls/hr IVPB DAILY [facility] PRN Reason: Protocol Last Admin: 07/26/17 09:18 Dose: 50 mls/hr Piperacillin Sod/Tazobactam (Sod 3.375 gm/ Sodium Chloride) 100 mls @ 100 mls/ hr IVPB Q8 [facility] PRN Reason: Protocol Last Admin: 07/26/17 16:52 Dose: 100 mls/hr Insulin Human Regular (Humulin R) 0 units SC ACHS [facility] PRN Reason: Protocol Last Admin: 07/26/17 17:01 Dose: Not Given Spironolactone (Aldactone) 25 mg PO BID [facility] Last Admin: 07/26/17 16:52 Dose: 25 mg Tiotropium [place] (Spiriva) 18 mcg INH DAILY [facility] Last Admin: 07/26/17 09:15 Dose: 18 mcg Vitamin B Complex/Vit C/Folic Acid (Nephro-Doreen) 1 tab PO 0800 [facility] Last Admin: 07/26/17 09:14 Dose: 1 tab - Labs Labs: 07/25/17 05:30 07/24/17 11:40 PT 15.4 Seconds (9.8-13.1) H 07/21/17 21:00 INR 1.4 (0.9-1.2) H 07/21/17 21:00 APTT 30.0 Seconds (25.6-37.1) 07/21/17 21:00 Assessment and Plan (1) Agitation Status: Acute (2) Leukocytosis Status: Acute
[2017-07-27] MEDS: Piperacillin/Tazobact 3.375 GM in Sodium Chloride 0.9% 100 ML IVPB SCH ×2 (00:28→10:06)
[2017-07-27] MEDS: Insulin Regular 100 units/ml SC SCH ×4 (09:53→21:57)
[2017-07-27] MEDS: levoFLOXacin 250 mg in D5W 250 MG/50 ML BAG IVPB SCH (10:07)
[2017-07-27] MEDS: Multivitamin Vitamin B Complex (Nephro-Vite) Tab PO SCH (10:08)
[2017-07-27] MEDS: Tiotropium 18 mcg Cap For Inhalation INH SCH (10:09)
[2017-07-27] MEDS: Meropenem 500 MG in Sodium Chloride 0.9% 100 ML IVPB SCH (17:10)
--- NOTE | 2017-07-27 21:10 | CP.PCM.PN ---
Subjective - Date & Time of Evaluation Date of Evaluation: 07/27/17 Time of Evaluation: 10:05 Objective - Vital Signs/Intake and Output Vital Signs (last 24 hours): Temp Pulse Resp BP Pulse Ox 97.2 F L 76 20 111/69 97 07/27/17 20:29 07/27/17 20:29 07/27/17 20:29 07/27/17 20:29 07/27/17 20:29 - Medications Medications: Current Medications Albuterol/Ipratropium (Duoneb 3 Mg/0.5 Mg (3 Ml) Ud) 3 ml INH RQ6 PRN PRN Reason: Shortness of Breath Last Admin: 07/23/17 17:31 Dose: 3 ml Albuterol/Ipratropium (Duoneb 3 Mg/0.5 Mg (3 Ml) Ud) 3 ml INH RQ6 PRN PRN Reason: Shortness of Breath Apixaban (Eliquis) 2.5 mg PO BID [facility] PRN Reason: Protocol Last Admin: 07/27/17 17:11 Dose: 2.5 mg Aspirin (Ecotrin) 81 mg PO DAILY [facility] Last Admin: 07/27/17 10:09 Dose: 81 mg Carvedilol (Coreg) 12.5 mg PO BID [facility] Last Admin: 07/27/17 17:11 Dose: 12.5 mg Levofloxacin/Dextrose (Levaquin 250mg) 250 mg in 50 mls @ 50 mls/hr IVPB DAILY [facility] PRN Reason: Protocol Last Admin: 07/27/17 10:07 Dose: 50 mls/hr Meropenem 500 mg/ Sodium (Chloride) 100 mls @ 100 mls/hr IVPB Q8 [facility] PRN Reason: Protocol Last Admin: 07/27/17 17:10 Dose: 100 mls/hr Insulin Human Regular (Humulin R) 0 units SC ACHS [facility] PRN Reason: Protocol Last Admin: 07/27/17 16:53 Dose: Not Given Spironolactone (Aldactone) 25 mg PO BID [facility] Last Admin: 07/27/17 17:11 Dose: 25 mg Tiotropium [place] (Spiriva) 18 mcg INH DAILY [facility] Last Admin: 07/27/17 10:09 Dose: 18 mcg Vitamin B Complex/Vit C/Folic Acid (Nephro-Doreen) 1 tab PO 0800 [facility] Last Admin: 07/27/17 10:08 Dose: 1 tab - Labs Labs: 07/25/17 05:30 07/24/17 11:40 PT 15.4 Seconds (9.8-13.1) H 07/21/17 21:00 INR 1.4 (0.9-1.2) H 07/21/17 21:00 APTT 30.0 Seconds (25.6-37.1) 07/21/17 21:00 Assessment and Plan (1) Agitation Status: Acute (2) Leukocytosis Status: Acute
[2017-07-28] MEDS: Meropenem 500 MG in Sodium Chloride 0.9% 100 ML IVPB SCH ×3 (00:56→18:32)
[2017-07-28 10:06] VITALS: BMI 20.3
--- NOTE | 2017-07-28 10:55 | CP.PCM.PN ---
Subjective - Date & Time of Evaluation Date of Evaluation: 07/28/17 Time of Evaluation: 10:55 - Subjective Subjective: ID Note- Pt. seen and examined today. no new events overnight. is clinically better and denies any sob. Objective - Vital Signs/Intake and Output Vital Signs (last 24 hours): Temp Pulse Resp BP Pulse Ox 98 F 99 H 18 112/70 96 07/28/17 08:16 07/28/17 08:16 07/28/17 08:16 07/28/17 09:41 07/28/17 08:16 - Medications Medications: Current Medications Albuterol/Ipratropium (Duoneb 3 Mg/0.5 Mg (3 Ml) Ud) 3 ml INH RQ6 PRN PRN Reason: Shortness of Breath Last Admin: 07/23/17 17:31 Dose: 3 ml Albuterol/Ipratropium (Duoneb 3 Mg/0.5 Mg (3 Ml) Ud) 3 ml INH RQ6 PRN PRN Reason: Shortness of Breath Apixaban (Eliquis) 2.5 mg PO BID [facility] PRN Reason: Protocol Last Admin: 07/27/17 17:11 Dose: 2.5 mg Aspirin (Ecotrin) 81 mg PO DAILY [facility] Last Admin: 07/27/17 10:09 Dose: 81 mg Carvedilol (Coreg) 12.5 mg PO BID [facility] Last Admin: 07/27/17 17:11 Dose: 12.5 mg Levofloxacin/Dextrose (Levaquin 250mg) 250 mg in 50 mls @ 50 mls/hr IVPB DAILY [facility] PRN Reason: Protocol Last Admin: 07/27/17 10:07 Dose: 50 mls/hr Meropenem 500 mg/ Sodium (Chloride) 100 mls @ 100 mls/hr IVPB Q8 [facility] PRN Reason: Protocol Last Admin: 07/28/17 00:56 Dose: 100 mls/hr Insulin Human Regular (Humulin R) 0 units SC ACHS [facility] PRN Reason: Protocol Last Admin: 07/27/17 21:57 Dose: Not Given Spironolactone (Aldactone) 25 mg PO BID [facility] Last Admin: 07/27/17 17:11 Dose: 25 mg Tiotropium [place] (Spiriva) 18 mcg INH DAILY [facility] Last Admin: 07/27/17 10:09 Dose: 18 mcg Vitamin B Complex/Vit C/Folic Acid (Nephro-Doreen) 1 tab PO 0800 [facility] Last Admin: 07/27/17 10:08 Dose: 1 tab - Labs Labs: - Skin Additional comments: - Constitutional Appears: No Acute Distress, Chronically Ill - Head Exam Head Exam: ATRAUMATIC - Eye Exam Eye Exam: PERRL - ENT Exam Additional comments: dry oral mucosa - Neck Exam Neck exam: Positive for: Full Rom - Respiratory Exam Respiratory Exam: NORMAL BREATHING PATTERN Additional comments: better aeration B/L No wheezing - Cardiovascular Exam Cardiovascular Exam: RRR, +S1, +S2 - GI/Abdominal Exam GI & Abdominal Exam: Normal Bowel Sounds, Soft Additional comments: NT, ND - Extremities Exam Additional comments: no edema B/L LE - Neurological Exam Neurological exam: Alert Laboratory Results - last 72 hr 07/22/17 07/26/17 07/26/17 16:40 05:31 10:53 WBC RBC Hgb Hct MCV MCH MCHC RDW Plt Count Sodium Potassium Chloride Carbon Dioxide Anion Gap BUN Creatinine Est GFR ( Amer) Est GFR (Non-Af Amer) POC Glucose (mg/dL) 110 141 H Random Glucose Calcium Mycoplasma pneumon IgG 2.27 H Mycoplasma pneumon IgM 9 07/26/17 07/26/17 07/27/17 16:02 21:23 05:02 WBC RBC Hgb Hct MCV MCH MCHC RDW Plt Count Sodium Potassium Chloride Carbon Dioxide Anion Gap BUN Creatinine Est GFR ( Amer) Est GFR (Non-Af Amer) POC Glucose (mg/dL) 144 H 123 H 92 Random Glucose Calcium Mycoplasma pneumon IgG Mycoplasma pneumon IgM 07/27/17 07/27/17 07/28/17 11:31 15:45 05:44 WBC RBC Hgb Hct MCV MCH MCHC RDW Plt Count Sodium Potassium Chloride Carbon Dioxide Anion Gap BUN Creatinine Est GFR ( Amer) Est GFR (Non-Af Amer) POC Glucose (mg/dL) 115 H 127 H 95 Random Glucose Calcium Mycoplasma pneumon IgG Mycoplasma pneumon IgM 07/28/17 07/28/17 07/28/17 10:48 12:21 12:49 WBC 11.9 H RBC 4.15 L Hgb 12.2 Hct 37.0 MCV 89.3 MCH 29.3 MCHC 32.9 L RDW 13.3 Plt Count 300 Sodium 134 Potassium 3.8 Chloride 105 Carbon Dioxide 25 Anion Gap 8 L BUN 20 Creatinine 1.3 Est GFR ( Amer) > 60 Est GFR (Non-Af Amer) 53 POC Glucose (mg/dL) 158 H Random Glucose 200 H Calcium 7.9 L Mycoplasma pneumon IgG Mycoplasma pneumon IgM 07/28/17 16:19 WBC RBC Hgb Hct MCV MCH MCHC RDW Plt Count Sodium Potassium Chloride Carbon Dioxide Anion Gap BUN Creatinine Est GFR ( Amer) Est GFR (Non-Af Amer) POC Glucose (mg/dL) 146 H Random Glucose Calcium Mycoplasma pneumon IgG Mycoplasma pneumon IgM Microbiology 07/22/17 16:46 Blood-Thru Central Line Blood Culture - Final NO GROWTH AFTER 5 DAYS 07/22/17 16:46 Blood-Thru Central Line Gram Stain - Final TEST NOT PERFORMED 07/23/17 11:23 Sputum Induced Gram Stain - Final 07/23/17 11:23 Sputum Induced Sputum Culture - Final Achromobacter Species 07/21/17 21:10 Blood Blood Culture - Final NO GROWTH AFTER 5 DAYS 07/21/17 21:10 Blood Gram Stain - Final TEST NOT PERFORMED 07/21/17 20:54 Blood Blood Culture - Final NO GROWTH AFTER 5 DAYS 07/21/17 20:54 Blood Gram Stain - Final TEST NOT PERFORMED Assessment and Plan (1) Pneumonia Status: Acute (2) Dementia Status: Acute (3) Leukocytosis Status: Acute - Assessment and Plan (Free Text) Assessment: A/P- 77 year old [place] resident male with COPD, dementia, CAD , recent pneumonia was on IV abx at [place]. pt. afebrile leukocytosis has almost resolved. cxr as per report no active disease. blood cx- neg x 2 peripheral blood cx through picc line- negative urine legionella AG- negative sputum cx- achromobacter species plan- day #7 of zosyn and levaquin today. in light of the sputum cx advise to start Oral bactrim DS BID for 10 days. can d/c IV zosyn and levquin at this time. monitor aspiration precautions. check f/u cxr today.
[2017-07-28] MEDS: Tiotropium 18 mcg Cap For Inhalation INH SCH (11:11)
[2017-07-28] MEDS: Multivitamin Vitamin B Complex (Nephro-Vite) Tab PO SCH (11:12)
[2017-07-28] MEDS: levoFLOXacin 250 mg in D5W 250 MG/50 ML BAG IVPB SCH (11:33)
[2017-07-28 11:34] LABS: BLOOD UREA NITROGEN 20 mg/dl (9-20); CALCIUM 7.9 mg/dL (8.4-10.2); GFR AFRICAN-AMERICAN > 60; GFR NON-AFRICAN AMERICAN 53
[2017-07-28 13:00] LABS: HEMOGLOBIN 12.2 g/dL (12.0-18.0); MEAN CELL VOLUME 89.3 fl (80.0-94.0); MEAN CORPUSCULAR HEMOGLOBIN 29.3 pg (27.0-31.0); MEAN CORPUSCULAR HGB CONC 32.9 g/dL (33.0-37.0); RBC 4.15 Mil/uL (4.40-5.90); RED CELL DISTRIBUTION WIDTH 13.3 % (11.5-14.5); WHITE BLOOD COUNT 11.9 K/uL (4.8-10.8)
[2017-07-28] MEDS: Insulin Regular 100 units/ml SC SCH ×3 (13:06→23:01)
[2017-07-28] MEDS: Tmp-Smz 800 mg-160 mg DS Tab PO SCH (22:50)
--- NOTE | 2017-07-29 | CP.PCM.PN ---
Subjective - Date & Time of Evaluation Date of Evaluation: 07/28/17 Time of Evaluation: 17:05 Objective - Vital Signs/Intake and Output Vital Signs (last 24 hours): Temp Pulse Resp BP Pulse Ox 97.3 F L 94 H 78 H 123/76 96 07/28/17 16:28 07/28/17 16:33 07/28/17 16:33 07/28/17 16:28 07/28/17 16:28 Intake and Output: 07/28/17 07/29/17 18:59 06:59 Intake Total 300 Balance 300 - Medications Medications: Current Medications Albuterol/Ipratropium (Duoneb 3 Mg/0.5 Mg (3 Ml) Ud) 3 ml INH RQ6 PRN PRN Reason: Shortness of Breath Last Admin: 07/23/17 17:31 Dose: 3 ml Albuterol/Ipratropium (Duoneb 3 Mg/0.5 Mg (3 Ml) Ud) 3 ml INH RQ6 PRN PRN Reason: Shortness of Breath Apixaban (Eliquis) 2.5 mg PO BID [facility] PRN Reason: Protocol Last Admin: 07/28/17 18:34 Dose: 2.5 mg Aspirin (Ecotrin) 81 mg PO DAILY [facility] Last Admin: 07/28/17 11:15 Dose: 81 mg Carvedilol (Coreg) 12.5 mg PO BID [facility] Last Admin: 07/28/17 18:34 Dose: 12.5 mg Insulin Human Regular (Humulin R) 0 units SC ACHS [facility] PRN Reason: Protocol Last Admin: 07/28/17 23:01 Dose: Not Given Spironolactone (Aldactone) 25 mg PO BID [facility] Last Admin: 07/28/17 18:34 Dose: 25 mg Tiotropium [place] (Spiriva) 18 mcg INH DAILY [facility] Last Admin: 07/28/17 11:11 Dose: 18 mcg Trimethoprim/Sulfamethoxazole (Bactrim Ds Tab) 1 tab PO Q12 [facility] PRN Reason: Protocol Last Admin: 07/28/17 22:50 Dose: 1 tab Vitamin B Complex/Vit C/Folic Acid (Nephro-Doreen) 1 tab PO 0800 [facility] Last Admin: 07/28/17 11:12 Dose: 1 tab - Labs Labs: 07/28/17 12:21 07/28/17 10:48 PT 15.4 Seconds (9.8-13.1) H 07/21/17 21:00 INR 1.4 (0.9-1.2) H 07/21/17 21:00 APTT 30.0 Seconds (25.6-37.1) 07/21/17 21:00 Assessment and Plan (1) Agitation Status: Acute (2) Leukocytosis Status: Acute
[2017-07-29] MEDS: Insulin Regular 100 units/ml SC SCH ×4 (07:01→22:32)
[2017-07-29] MEDS: Multivitamin Vitamin B Complex (Nephro-Vite) Tab PO SCH (09:48)
[2017-07-29] MEDS: Tmp-Smz 800 mg-160 mg DS Tab PO SCH ×2 (09:48→20:38)
[2017-07-29] MEDS: Tiotropium 18 mcg Cap For Inhalation INH SCH (09:49)
--- NOTE | 2017-07-29 11:34 | CT ---
PROCEDURE: CT Chest without contrast HISTORY: GENNARO CLAUDIA COMPARISON: 07/24/2017 TECHNIQUE: Contiguous axial images were obtained through the chest without intravenous contrast enhancement. Sagittal and coronal reconstructions were performed. Radiation dose (DLP): 514.14. MGy-cm. This CT exam was performed using one or more of the following dose reduction techniques: Automated exposure control, adjustment of the mA and/or kV according to patient size, and/or use of iterative reconstruction technique. FINDINGS: LUNGS: Confirmation of previously identified right lower lobe infiltrate with air bronchograms consistent with pneumonia. This affects primarily the basilar segment. Underlying hyperinflation, manifestations of COPD are mild. Pneumonitis/bronchitis also identified. MEDIASTINUM: Unremarkable thoracic aorta. No aneurysm. Normal sized heart. Main pulmonary artery unremarkable. No vascular congestion. No lymphadenopathy. PLEURA: No pleural fluid. No pneumothorax. BONES: No fracture. No destructive lesion. UPPER ABDOMEN: Grossly unremarkable. OTHER FINDINGS: None. IMPRESSION: Right lower lobe infiltrate/ pneumonia confirming findings on recent chest radiographs. Additional benign and/or incidental findings described above.
--- NOTE | 2017-07-29 12:52 | CP.PCM.PN ---
Subjective - Date & Time of Evaluation Date of Evaluation: 07/29/17 Time of Evaluation: 12:45 Objective - Vital Signs/Intake and Output Vital Signs (last 24 hours): Temp Pulse Resp BP Pulse Ox 97.6 F 67 18 102/76 93 L 07/29/17 11:53 07/29/17 11:53 07/29/17 11:53 07/29/17 11:53 07/29/17 11:53 - Medications Medications: Current Medications Albuterol/Ipratropium (Duoneb 3 Mg/0.5 Mg (3 Ml) Ud) 3 ml INH RQ6 PRN PRN Reason: Shortness of Breath Last Admin: 07/23/17 17:31 Dose: 3 ml Albuterol/Ipratropium (Duoneb 3 Mg/0.5 Mg (3 Ml) Ud) 3 ml INH RQ6 PRN PRN Reason: Shortness of Breath Apixaban (Eliquis) 2.5 mg PO BID [facility] PRN Reason: Protocol Last Admin: 07/29/17 09:48 Dose: 2.5 mg Aspirin (Ecotrin) 81 mg PO DAILY [facility] Last Admin: 07/29/17 09:49 Dose: 81 mg Carvedilol (Coreg) 12.5 mg PO BID [facility] Last Admin: 07/29/17 09:49 Dose: 12.5 mg Insulin Human Regular (Humulin R) 0 units SC ACHS [facility] PRN Reason: Protocol Last Admin: 07/29/17 07:01 Dose: Not Given Spironolactone (Aldactone) 25 mg PO BID [facility] Last Admin: 07/29/17 09:48 Dose: 25 mg Tiotropium [place] (Spiriva) 18 mcg INH DAILY [facility] Last Admin: 07/29/17 09:49 Dose: 18 mcg Trimethoprim/Sulfamethoxazole (Bactrim Ds Tab) 1 tab PO Q12 [facility] PRN Reason: Protocol Last Admin: 07/29/17 09:48 Dose: 1 tab Vitamin B Complex/Vit C/Folic Acid (Nephro-Doreen) 1 tab PO 0800 [facility] Last Admin: 07/29/17 09:48 Dose: 1 tab - Labs Labs: 07/28/17 12:21 07/28/17 10:48 PT 15.4 Seconds (9.8-13.1) H 07/21/17 21:00 INR 1.4 (0.9-1.2) H 07/21/17 21:00 APTT 30.0 Seconds (25.6-37.1) 07/21/17 21:00 Assessment and Plan (1) Agitation Status: Acute (2) Leukocytosis Status: Acute
[2017-07-29] MEDS: Meropenem 500 MG in Sodium Chloride 0.9% 100 ML IVPB SCH ×2 (14:33→20:39)
--- NOTE | 2017-07-29 16:07 | RAD ---
PROCEDURE: CHEST RADIOGRAPH, 1 VIEW portable semi upright study 21:00. HISTORY: pneumonia COMPARISON: 07/24/2017 single-view chest. July 29, 2017. CT thorax FINDINGS: LUNGS: Confirmation of right lower lobe infiltrate better seen on concurrent CT scan. PLEURA: No pneumothorax or pleural fluid seen. CARDIOVASCULAR: No radiographic findings to suggest acute or significant cardiovascular disease. OSSEOUS STRUCTURES: No significant abnormalities. VISUALIZED UPPER ABDOMEN: Normal. OTHER FINDINGS: None. IMPRESSION: No significant interval change compared to the prior examination(s).
[2017-07-30] MEDS: Meropenem 500 MG in Sodium Chloride 0.9% 100 ML IVPB SCH ×3 (05:04→20:49)
[2017-07-30] MEDS: Insulin Regular 100 units/ml SC SCH ×4 (06:32→22:58)
[2017-07-30] MEDS: Multivitamin Vitamin B Complex (Nephro-Vite) Tab PO SCH (08:30)
[2017-07-30] MEDS: Tiotropium 18 mcg Cap For Inhalation INH SCH (09:19)
[2017-07-30] MEDS: Tmp-Smz 800 mg-160 mg DS Tab PO SCH ×2 (09:21→20:49)
[2017-07-30 13:15] LABS: HEMOGLOBIN 11.6 g/dL (12.0-18.0); MEAN CELL VOLUME 89.3 fl (80.0-94.0); MEAN CORPUSCULAR HEMOGLOBIN 29.8 pg (27.0-31.0); MEAN CORPUSCULAR HGB CONC 33.4 g/dL (33.0-37.0); RBC 3.9 Mil/uL (4.40-5.90); RED CELL DISTRIBUTION WIDTH 13.7 % (11.5-14.5); WHITE BLOOD COUNT 12.5 K/uL (4.8-10.8)
[2017-07-30 13:38] LABS: CALCIUM 8.5 mg/dL (8.4-10.2)
--- NOTE | 2017-07-30 21:52 | CP.PCM.PN ---
Subjective - Subjective Subjective: Called to reassess patient with COPD and Pna. s/ Patient feels much better. O/ Afebrile, VSS Heart RRR, NS1S2 Neg M Lungs: almost absent BS Ext: no c,c,e Neuro: GNF Labs, as beloe a/p It seems like patient's CT Scan is just lagging behind his clinical improvement. I would continue supp O2 for an O2 Sat > 90% Cont Abx as per ID Optimize cardiac status Do and ABG on Room Air, after O2 has been off for 1/2 hour. Cont LUISA prn. Can f/u with me when d/c. cont AC as per dose. PUD Px. Objective - Vital Signs/Intake and Output Vital Signs (last 24 hours): Temp Pulse Resp BP Pulse Ox 98.4 F 70 14 106/65 98 07/30/17 20:15 07/30/17 20:15 07/30/17 20:15 07/30/17 20:15 07/30/17 20:15 - Medications Medications: Current Medications Albuterol/Ipratropium (Duoneb 3 Mg/0.5 Mg (3 Ml) Ud) 3 ml INH RQ6 PRN PRN Reason: Shortness of Breath Last Admin: 07/23/17 17:31 Dose: 3 ml Albuterol/Ipratropium (Duoneb 3 Mg/0.5 Mg (3 Ml) Ud) 3 ml INH RQ6 PRN PRN Reason: Shortness of Breath Apixaban (Eliquis) 2.5 mg PO BID [facility] PRN Reason: Protocol Last Admin: 07/30/17 17:00 Dose: 2.5 mg Aspirin (Ecotrin) 81 mg PO DAILY [facility] Last Admin: 07/30/17 09:21 Dose: 81 mg Carvedilol (Coreg) 12.5 mg PO BID [facility] Last Admin: 07/30/17 17:00 Dose: 12.5 mg Meropenem 500 mg/ Sodium (Chloride) 100 mls @ 100 mls/hr IVPB Q8H [facility] PRN Reason: Protocol Last Admin: 07/30/17 20:49 Dose: 100 mls/hr Insulin Human Regular (Humulin R) 0 units SC ACHS [facility] PRN Reason: Protocol Last Admin: 07/30/17 17:00 Dose: Not Given Spironolactone (Aldactone) 25 mg PO BID [facility] Last Admin: 07/30/17 17:00 Dose: 25 mg Tiotropium [place] (Spiriva) 18 mcg INH DAILY [facility] Last Admin: 07/30/17 09:19 Dose: 18 mcg Trimethoprim/Sulfamethoxazole (Bactrim Ds Tab) 1 tab PO Q12 [facility] PRN Reason: Protocol Last Admin: 07/30/17 20:49 Dose: 1 tab Vitamin B Complex/Vit C/Folic Acid (Nephro-Doreen) 1 tab PO 0800 [facility] Last Admin: 07/30/17 08:30 Dose: 1 tab - Labs Labs: 07/30/17 12:48 07/30/17 12:48 PT 15.4 Seconds (9.8-13.1) H 07/21/17 21:00 INR 1.4 (0.9-1.2) H 07/21/17 21:00 APTT 30.0 Seconds (25.6-37.1) 07/21/17 21:00
[2017-07-31] MEDS: Meropenem 500 MG in Sodium Chloride 0.9% 100 ML IVPB SCH ×2 (04:44→13:25)
[2017-07-31] MEDS: Insulin Regular 100 units/ml SC SCH ×2 (06:30→13:20)
[2017-07-31] MEDS: Tmp-Smz 800 mg-160 mg DS Tab PO SCH (08:49)
[2017-07-31] MEDS: Tiotropium 18 mcg Cap For Inhalation INH SCH (08:50)
[2017-07-31] MEDS: Multivitamin Vitamin B Complex (Nephro-Vite) Tab PO SCH (08:50)
[2017-07-31 10:18] LABS: ABG ALLEN TEST YES; ARTERIAL BLOOD GAS HCO3 23.6 mmol/L (21-28); ARTERIAL BLOOD GAS HEMOGLOBIN 11.8 g/dL (11.7-17.4); ARTERIAL BLOOD GAS O2 CAPACITY 16.1 mL/dL (16-24); ARTERIAL BLOOD GAS O2 CONTENT 15.4 ML/dL (15-23); ARTERIAL BLOOD GAS O2 SAT 95.6 % (95-98); ARTERIAL BLOOD GAS PCO2 28 mm/Hg (35-45); ARTERIAL BLOOD GAS PH 7.48 (7.35-7.45); ARTERIAL BLOOD GAS PO2 63 mm/Hg (80-100); ARTERIAL BLOOD GAS TCO2 21.8 mmol/L (22-28)
--- NOTE | 2017-07-31 10:22 | PQF GENQUE ---
Dr. Suarez, The medical record includes the following unclear abbreviation: ARF Please document the associated medical diagnosis related to the above abbreviation. 07/24 Pulmonary consult: Lungs: distant BS ARF PNA COPD Dementia Cont present treatment with O2, although he was sating at 95 % on Room air. Repeat X-ray in 48 hours. Cont LUISA and LAMA. Cont IV abx and monitor WBC#, temp curve, and pancultures. PUD and DVT Px. 07/30 Pulmonary progress note: It seems like patient's CT Scan is just lagging behind his clinical improvement. I would continue supp O2 for an O2 Sat > 90% Cont Abx as per ID Optimize cardiac status Do and ABG on Room Air, after O2 has been off for 1/2 hour. Cont LUISA prn. O2 sat low: 07/23 and 07/29: 92 This form is a permanent part of the medical record Clarification of your documentation is requested to better reflect the severity of illness and intensity of treatment of your patient. Indicators present [] Specify: [] [] Specify: [] [] Specify: [] [] Specify: [] Location in the medical record that reflects the above clinical findings: [] Treatment Provided: [] PHYSICIAN'S RESPONSE Based on your medical judgment of the clinical indicators outlined above please clarify the following: [] Practitioner response [] If unable to determine, please check the box, sign and date. Present On Admission (POA) Indicator: [] Present at the time of admission [] Not present at the time of admission [] Clinically Undetermined In responding to this query, please exercise your independent professional judgment. The fact that a question is asked does not imply that any particular answer is desired or expected. Thank you for your clarification on this documentation. If you have any questions please call. * Thank you, Dahlia Berg RN ext. #[phone] [facility]TDD
[2017-07-31 12:16] VITALS: BP 94/60; RESP 20; TEMP 97.1
[2017-07-31 13:44] VITALS: PULSE 76; O2SAT 94
[2017-07-31] MEDS ORDERED: Meropenem 1 GM in Sodium Chloride 0.9% 100 ML IVPB SCH (17:00)
--- NOTE | 2017-08-02 00:32 | CP.PCM.DIS ---
Provider - Provider Date of Admission: 07/21/17 20:50 Attending physician: Marlon Xie MD Time Spent in preparation of Discharge (in minutes): 25 Diagnosis - Discharge Diagnosis (1) Agitation Status: Acute (2) Leukocytosis Status: Acute Hospital Course - Lab Results Lab Results: Micro Results 07/22/17 16:46 Blood-Thru Central Line Blood Culture - Final NO GROWTH AFTER 5 DAYS 07/22/17 16:46 Blood-Thru Central Line Gram Stain - Final TEST NOT PERFORMED 07/23/17 11:23 Sputum Induced Gram Stain - Final 07/23/17 11:23 Sputum Induced Sputum Culture - Final Achromobacter Species 07/21/17 21:10 Blood Blood Culture - Final NO GROWTH AFTER 5 DAYS 07/21/17 21:10 Blood Gram Stain - Final TEST NOT PERFORMED 07/21/17 20:54 Blood Blood Culture - Final NO GROWTH AFTER 5 DAYS 07/21/17 20:54 Blood Gram Stain - Final TEST NOT PERFORMED Most Recent Lab Values WBC 12.5 K/uL (4.8-10.8) H 07/30/17 12:48 RBC 3.90 Mil/uL (4.40-5.90) L 07/30/17 12:48 Hgb 11.6 g/dL (12.0-18.0) L 07/30/17 12:48 Hct 34.8 % (35.0-51.0) L 07/30/17 12:48 MCV 89.3 fl (80.0-94.0) 07/30/17 12:48 MCH 29.8 pg (27.0-31.0) 07/30/17 12:48 MCHC 33.4 g/dL (33.0-37.0) 07/30/17 12:48 RDW 13.7 % (11.5-14.5) 07/30/17 12:48 Plt Count 285 K/uL (130-400) 07/30/17 12:48 MPV 9.1 fl (7.2-11.7) 07/25/17 05:30 Neut % (Auto) 79.7 % (50.0-75.0) H 07/25/17 05:30 Lymph % (Auto) 10.3 % (20.0-40.0) L 07/25/17 05:30 [place] % (Auto) 7.6 % (0.0-10.0) 07/25/17 05:30 Eos % (Auto) 1.8 % (0.0-4.0) 07/25/17 05:30 Baso % (Auto) 0.6 % (0.0-2.0) 07/25/17 05:30 Neut # 9.8 K/uL (1.8-7.0) H 07/25/17 05:30 Lymph # 1.3 K/uL (1.0-4.3) 07/25/17 05:30 [place] # 0.9 K/uL (0.0-0.8) H 07/25/17 05:30 Eos # 0.2 K/uL (0.0-0.7) 07/25/17 05:30 Baso # 0.1 K/uL (0.0-0.2) 07/25/17 05:30 Neutrophils % (Manual) 82 % (42-75) H 07/21/17 20:05 Band Neutrophils % 3 % (0-2) H 07/21/17 20:05 Lymphocytes % (Manual) 7 % (20-50) L 07/21/17 20:05 Monocytes % (Manual) 6 % (0-10) 07/21/17 20:05 Eosinophils % (Manual) 2 % (0-7) 07/21/17 20:05 Toxic Granulation Present 07/21/17 20:05 Platelet Estimate Normal (NORMAL) 07/21/17 20:05 PT 15.4 Seconds (9.8-13.1) H 07/21/17 21:00 INR 1.4 (0.9-1.2) H 07/21/17 21:00 APTT 30.0 Seconds (25.6-37.1) 07/21/17 21:00 pCO2 28 mm/Hg (35-45) L 07/31/17 10:08 pO2 63 mm/Hg (80-100) L 07/31/17 10:08 HCO3 23.6 mmol/L (21-28) 07/31/17 10:08 ABG pH 7.48 (7.35-7.45) H 07/31/17 10:08 ABG Total CO2 21.8 mmol/L (22-28) L 07/31/17 10:08 ABG O2 Saturation 95.6 % (95-98) 07/31/17 10:08 ABG O2 Content 15.4 ML/dL (15-23) 07/31/17 10:08 ABG Base Excess -1.6 mmol/L (-2.0-3.0) 07/31/17 10:08 ABG Hemoglobin 11.8 g/dL (11.7-17.4) 07/31/17 10:08 ABG Carboxyhemoglobin 1.2 % (0.5-1.5) 07/31/17 10:08 POC ABG HHb (Measured) 4.3 % (0.0-5.0) 07/31/17 10:08 ABG Methemoglobin 1.5 % (0.0-3.0) 07/31/17 10:08 ABG O2 Capacity 16.1 mL/dL (16-24) 07/31/17 10:08 Jerzy Test Yes 07/31/17 10:08 A-a O2 Difference 52.0 mm/Hg 07/31/17 10:08 Hgb O2 Saturation 92.9 % (95.0-98.0) L 07/31/17 10:08 FiO2 21.0 % 07/31/17 10:08 Sodium 136 mmol/l (132-148) 07/30/17 12:48 Potassium 4.9 MMOL/L (3.6-5.0) 07/30/17 12:48 Chloride 105 mmol/L (98-107) 07/30/17 12:48 Carbon Dioxide 26 mmol/L (22-30) 07/30/17 12:48 Anion Gap 10 (10-20) 07/30/17 12:48 BUN 27 mg/dl (9-20) H 07/30/17 12:48 Creatinine 1.6 mg/dl (0.8-1.5) H 07/30/17 12:48 Est GFR ( Amer) 51 07/30/17 12:48 Est GFR (Non-Af Amer) 42 07/30/17 12:48 POC Glucose (mg/dL) 132 mg/dL (65-110) H 07/31/17 11:34 Random Glucose 102 mg/dL (75-110) 07/30/17 12:48 Lactic Acid 1.1 MMOL/L (0.7-2.1) 07/21/17 21:00 Calcium 8.5 mg/dL (8.4-10.2) 07/30/17 12:48 Magnesium 2.2 MG/DL (1.6-2.3) 07/22/17 05:20 Total Bilirubin 1.0 mg/dl (0.2-1.3) 07/21/17 19:11 AST 41 U/L (17-59) 07/21/17 19:11 ALT 24 U/L (21-72) 07/21/17 19:11 Alkaline Phosphatase 64 U/L (38-126) 07/21/17 19:11 Troponin I 0.0380 ng/mL (0.00-0.120) 07/21/17 19:11 Total Protein 7.6 G/DL (6.3-8.2) 07/21/17 19:11 Albumin 3.8 g/dL (3.5-5.0) 07/21/17 19:11 Globulin 3.9 gm/dL (2.2-3.9) 07/21/17 19:11 Albumin/Globulin Ratio 1.0 (1.0-2.1) 07/21/17 19:11 Urine Color Yellow (YELLOW) 07/22/17 08:45 Urine Clarity Slighty-cloudy (Clear) 07/22/17 08:45 Urine pH 5.0 (5.0-8.0) 07/22/17 08:45 Ur Specific [place] 1.017 (1.003-1.030) 07/22/17 08:45 Urine Protein 100 mg/dL (NEGATIVE) 07/22/17 08:45 Urine Glucose (UA) Neg mg/dL (Normal) 07/22/17 08:45 Urine Ketones Trace mg/dL (NEGATIVE) 07/22/17 08:45 Urine Blood Negative (NEGATIVE) 07/22/17 08:45 Urine Nitrate Negative (NEGATIVE) 07/22/17 08:45 Urine Bilirubin Negative (NEGATIVE) 07/22/17 08:45 Urine Urobilinogen 0.2-1.0 mg/dL (0.2-1.0) 07/22/17 08:45 Ur Leukocyte Esterase Neg Xena/uL (Negative) 07/22/17 08:45 Urine RBC (Auto) 2 /hpf (0-3) 07/22/17 08:45 Urine Microscopic WBC 1 /hpf (0-5) 07/22/17 08:45 Ur Squamous Epith Cells < 1 /hpf (0-5) 07/22/17 08:45 Urine Bacteria Rare (<OCC) 07/22/17 08:45 Hyaline Casts 0-2 /hpf (0-2) 07/22/17 08:45 Urine Opiates Screen Negative (NEGATIVE) 07/22/17 08:45 Urine Methadone Screen Negative (NEGATIVE) 07/22/17 08:45 Ur Barbiturates Screen Negative (NEGATIVE) 07/22/17 08:45 Ur Phencyclidine Scrn Negative (NEGATIVE) 07/22/17 08:45 Ur Amphetamines Screen Negative (NEGATIVE) 07/22/17 08:45 U Benzodiazepines Scrn Negative (NEGATIVE) 07/22/17 08:45 U Oth Cocaine Metabols Negative (NEGATIVE) 07/22/17 08:45 U Cannabinoids Screen Negative (NEGATIVE) 07/22/17 08:45 Alcohol, Quantitative < 10 mg/dl (0-10) 07/21/17 19:11 Ur L.pneumophila Ag Negative (NEGATIVE) 07/22/17 07:26 Mycoplasma pneumon IgG 2.27 (<=0.90) H 07/22/17 16:40 Mycoplasma pneumon IgM 9 U/mL (<770) 07/22/17 16:40 Discharge Exam - Head Exam Head Exam: ATRAUMATIC, NORMAL INSPECTION, NORMOCEPHALIC Discharge Plan - Discharge Medications Prescriptions: Lactobacillus Acidophilus [Digestive Probiotic] 1 each PO DAILY #7 capsule Meropenem [Merrem IV] 500 mg IV Q8 #18 pds - Follow Up Plan Condition: FAIR Disposition: REHAB FACILITY/REHAB UNIT Instructions: Dementia (GEN), Community Acquired Pneumonia (DC) Referrals: Ebony Feliz MD [Staff Provider] - Evans Suarez MD [Staff Provider] -
--- NOTE | 2017-08-02 00:32 | CP.PCM.PN ---
Subjective - Date & Time of Evaluation Date of Evaluation: 07/30/17 Time of Evaluation: 19:00 Objective - Vital Signs/Intake and Output Vital Signs (last 24 hours): Temp Pulse Resp BP Pulse Ox 97.1 F L 76 20 94/60 L 94 L 07/31/17 12:15 07/31/17 13:38 07/31/17 12:15 07/31/17 12:15 07/31/17 13:38 - Labs Labs: 07/30/17 12:48 07/30/17 12:48 PT 15.4 Seconds (9.8-13.1) H 07/21/17 21:00 INR 1.4 (0.9-1.2) H 07/21/17 21:00 APTT 30.0 Seconds (25.6-37.1) 07/21/17 21:00 Assessment and Plan (1) Agitation Status: Acute (2) Leukocytosis Status: Acute
== END 2017-07-31 15:15 | DRG 178 ==
LOC: H.ER 18:13 → H.ERHOLD 20:50 → H.MEDSURG1 23:42 → H.TEL 07-23 18:24
PROVIDERS: ADMIT Internal Medicine; ATTEND Internal Medicine
DX: J15.6 Pneumonia due to other Gram-negative bacteria (principal); J44.0 Chronic obstructive pulmonary disease with (acute) lower respiratory infection; I48.91 Unspecified atrial fibrillation; F03.90 Unspecified dementia, unspecified severity, without behavioral disturbance, psychotic disturbance, mood disturbance, and anxiety; J43.2 Centrilobular emphysema; I25.10 Atherosclerotic heart disease of native coronary artery without angina pectoris; Z95.1 Presence of aortocoronary bypass graft; I12.9 Hypertensive chronic kidney disease with stage 1 through stage 4 chronic kidney disease, or unspecified chronic kidney disease; N18.9 Chronic kidney disease, unspecified; E78.5 Hyperlipidemia, unspecified; Z87.891 Personal history of nicotine dependence; R45.1 Restlessness and agitation

== ENCOUNTER 2017-09-05 19:16 | Emergency (ER) | payer MEDICARE ==
[2017-09-05 19:16] VITALS: BMI 20.3
[2017-09-05 19:27] VITALS: BP 169/101; PULSE 82; RESP 18; TEMP 99.2; O2SAT 98
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
== END 2017-09-05 22:31 | disposition home or self-care (01) ==
LOC: H.ER 19:16
DX: F03.91 Unspecified dementia, unspecified severity, with behavioral disturbance (principal)

== ENCOUNTER 2017-09-06 21:27 | Emergency (ER) | payer MEDICARE ==
[2017-09-06 21:27] VITALS: BMI 20.3
[2017-09-06 21:37] VITALS: BP 168/101; PULSE 96; RESP 16; TEMP 97.2; O2SAT 98
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
== END 2017-09-07 02:00 ==
LOC: H.ER 21:27
DX: F03.90 Unspecified dementia, unspecified severity, without behavioral disturbance, psychotic disturbance, mood disturbance, and anxiety (principal); E78.00 Pure hypercholesterolemia, unspecified; I12.9 Hypertensive chronic kidney disease with stage 1 through stage 4 chronic kidney disease, or unspecified chronic kidney disease; N18.9 Chronic kidney disease, unspecified; I48.91 Unspecified atrial fibrillation; J44.9 Chronic obstructive pulmonary disease, unspecified; Z99.81 Dependence on supplemental oxygen

== ENCOUNTER 2017-09-07 03:04 | Inpatient (IN) | payer MEDICARE ==
[2017-09-07 03:06] VITALS: BMI 20.3
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
[2017-09-07 04:10] LABS: BASO # 0.1 K/uL (0.0-0.2); BASO % 1.2 % (0.0-2.0); EOS # 0.5 K/uL (0.0-0.7); EOS % 4.8 % (0.0-4.0); HEMOGLOBIN 12.3 g/dL (12.0-18.0); LYMPH # 2.3 K/uL (1.0-4.3); LYMPH % 22.2 % (20.0-40.0); MEAN CELL VOLUME 89.5 fl (80.0-94.0); MEAN CORPUSCULAR HEMOGLOBIN 30.1 pg (27.0-31.0); MEAN CORPUSCULAR HGB CONC 33.6 g/dL (33.0-37.0); MEAN PLATELET VOLUME 8.2 fl (7.2-11.7); MONO % 9.1 % (0.0-10.0); NEUT # 6.6 K/uL (1.8-7.0); NEUT % 62.7 % (50.0-75.0); NRBC % 0.1 % (0.0-0.0); RBC 4.08 Mil/uL (4.40-5.90); RED CELL DISTRIBUTION WIDTH 14.6 % (11.5-14.5); WHITE BLOOD COUNT 10.5 K/uL (4.8-10.8)
[2017-09-07 04:18] LABS: BLOOD UREA NITROGEN 38 mg/dl (9-20); CALCIUM 9.2 mg/dL (8.4-10.2); GFR AFRICAN-AMERICAN > 60; GFR NON-AFRICAN AMERICAN 53
[2017-09-07] MEDS ORDERED: Magnesium Hydroxide Susp 30 ml UD PO PRN (06:43)
[2017-09-07] MEDS ORDERED: Alum-Mag Hydrox-Simethicone Susp (30 mL) PO PRN (06:43)
[2017-09-07] MEDS ORDERED: Bismuth Subsalicylate 262 mg/15 ml Sus (240 ml) PO PRN (06:43)
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
[2017-09-07 07:04] VITALS: O2SAT 98
[2017-09-07 07:31] LABS: BARBITURATES, UR NEGATIVE (NEGATIVE); BENZODIAZEPINES, UR NEGATIVE (NEGATIVE); OPIATES, UR NEGATIVE (NEGATIVE); PHENCYCLIDINE, UR NEGATIVE (NEGATIVE)
[2017-09-07 09:08] LABS: ALB/GLOB RATIO 1.1 (1.0-2.1); ALBUMIN 3.8 g/dL (3.5-5.0); ALT/SGPT 28 U/L (21-72); AST/SGOT 37 U/L (17-59); BLOOD UREA NITROGEN 34 mg/dl (9-20); CALCIUM 9.4 mg/dL (8.4-10.2); GFR AFRICAN-AMERICAN 59; GFR NON-AFRICAN AMERICAN 49; HDL CHOLESTEROL 34 MG/DL (30-70); IRON 72 ug/dL (49-181)
--- NOTE | 2017-09-07 09:11 | RAD ---
HISTORY: medical clearance COMPARISON: Comparison chest dated dated and CT scan chest 07/28/2017 and respectively. FINDINGS: LUNGS: Lung aguila appear slightly hyperinflated consistent with significant emphysematous changes. Additionally, there appears to be bibasilar atelectasis/scarring. . Questionable underlying mild fibrosis right and to a lesser degree left lung bases. PLEURA: No significant pleural effusion identified, no pneumothorax apparent. CARDIOVASCULAR: Sternotomy wires and CABG clips again noted. Heart size within range of normal. OSSEOUS STRUCTURES: No significant abnormalities. VISUALIZED UPPER ABDOMEN: Normal. OTHER FINDINGS: None. IMPRESSION: Lung aguila appear slightly hyperinflated consistent with significant emphysematous changes. Additionally, there appears to be bibasilar atelectasis/scarring. . Questionable underlying mild fibrosis right and to a lesser degree left lung bases.
[2017-09-07 09:17] LABS: % IRON SATURATION 26 % (20-55); TOTAL IRON BINDING CAPACITY 277 ug/dL (250-450)
[2017-09-07 09:18] LABS: LDL CHOLESTEROL 167 mg/dL (0-129)
[2017-09-07 09:24] LABS: T4 9.26 ug/dl (5.5-11.0)
--- NOTE | 2017-09-07 10:34 | PCM.PSYCH ---
Initial Psychiatric Evaluation - Initial Psychiatric Evaluation Type of Admission: Voluntary Legal Status: Capacity Chief Complaint (in patient's own words): CC: "The guys are after me." Patient is a limited historian due to dementia HPI: 77 yo male w/ h/o dementia, presented to the ED w/ threats to harm himself and others and paranoia that some men are trying to harm him. As per record he has been increasingly aggressive towards others at the long-term. Patient denies acute ideation to harm himself or others, but continues to be paranoid that people are trying to steal from him and physically harm him. He is mistrustful of other. A + O x person and "hospital." As per chart, patient also made threats to jump out the window but he denies that now. +Depressed mood. +Anxiety. +Sleep disturbances. 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; denies current drugs/etoh/cig ; former smoker Current Medications: Active Medications Generic Name Dose Route Start Last Admin Trade Name Freq PRN Reason Stop Dose Admin Acetaminophen 650 mg 09/07/17 06:43 Tylenol 325mg Tab PO Q4 PRN Pain, moderate (4-7) Al Hydrox/Mg Hydrox/Simethicone 30 ml 09/07/17 06:43 Maalox Plus 30 Ml PO Q4 PRN Dyspepsia Albuterol/Ipratropium 3 ml 09/07/17 14:00 Duoneb 3 Mg/0.5 Mg (3 Ml) Ud INH RQ6 [facility] Apixaban 2.5 mg 09/07/17 09:00 Eliquis PO BID [facility] Protocol Aspirin 81 mg 09/07/17 09:00 Ecotrin PO DAILY [facility] Bismuth Subsalicylate 524 mg 09/07/17 06:43 Pepto-Bismol PO Q4 PRN Diarrhea Carvedilol 12.5 mg 09/07/17 09:00 Coreg PO BID [facility] Linezolid 600 mg 09/07/17 09:00 Zyvox PO 09/19/17 11:55 BID [facility] Protocol Lorazepam 0.5 mg 09/07/17 06:43 Ativan PO 09/21/17 06:44 HS PRN Insomnia Lorazepam 0.5 mg 09/07/17 06:43 Ativan PO 09/21/17 06:44 Q6 PRN Anixety/Agitation Magnesium Hydroxide 30 ml 09/07/17 06:43 Milk Of Magnesia PO HS PRN Constipation Vitamin B Complex/Vit C/Folic Acid 1 tab 09/07/17 09:00 Nephro-Doreen PO DAILY [facility] Past Psychiatric History - Past Psychiatric History Previous Treatment History: None Pertinent Medical Hx (Current Medical&Sleep Prob, Allergies): Allergies Allergy/AdvReac Type Severity Reaction Status Date / Time No Known Allergies Allergy Verified 09/05/17 19:30 Albuterol/Ipratropium [Duoneb 3 mg/0.5 mg (3 ml) UD] 3 ml INH RQ6 neb 07/16/17 Apixaban [Eliquis] 2.5 mg PO BID tab 07/16/17 Aspirin [Ecotrin] 81 mg PO DAILY tabec 07/16/17 Carvedilol [Coreg] 12.5 mg PO BID tab 07/16/17 Vitamin B Complex/Vit C/Folic [Nephro-Doreen] 1 tab PO 0800 tab 07/16/17 Lactobacillus Acidophilus [Digestive Probiotic] 1 each PO DAILY #7 capsule 07/31 Acetaminophen [Tylenol 325mg tab] 325 mg PO Q4 PRN 09/07/17 Linezolid [Zyvox] 600 mg PO BID 09/07/17 Magnesium Hydroxide [Milk of Magnesia] 30 ml PO DAILY PRN 09/07/17 Petrolatum,White/Lanolin [Vitamin A & D Ointment] 113 gm TP BID 09/07/17 Review of Systems - Psychiatric Psychiatric: As Per HPI, Abnormal Sleep Pattern, Behavioral Changes, Confusion, Depression, Difficulty Concentrating, Hopelessness, Irritability, Memory Loss, Paranoia, Suicidal Ideation Mental Status Examination - Personal Presentation Personal Presentation: Looks stated age - Affect Affect: Constricted - Motor Activity Motor Activity: Calm - Reliability in Providing Information Reliability in Providing Information: Poor, due to cognitve impairment - Speech Speech: Coherent - Mood Mood: Depressed, Anxious - Formal Thought Process Formal Thought Process: Paranoia - Hallucinations/Delusions Additional comments: NO AH/VH - Obsessions/Compulsions Obsessions: No Compulsions: No - Cognitive Functions Orientation: Person, Place ("Hospital"), Situation Sensorium: Alert Attention/Concentration: Easily distracted Judgement: Imparied, as evidence by: Poor judgement, Imparied, as evidence by: Lack of insight into illness Memory: Recent impaired, as evidence by: Inability to recall events of the day, Recent imparied as evidence by:Inability to complete 3/3 object recall, Remote impaired as evidenced by: Inability to recall sig life events, Remote impaired as evidenced by: Inability to recall historical events - Risk Risk: Diminished functioning - Strength & Assets Inventory Strength & Assets Inventory: Family support, Cooperative - Limitations Limitations: Decreased memory, recent DSM 5 DX - DSM 5 DSM 5 Diagnosis: Dementia w/ behavioral disturbance; MDD w/ psychosis; r/o acute delirium 2/2 VRE UTI - Recommended/Plan of Treatment Treatment Recommendations and Plan of Treatment: Dementia w/ behavioral disturbance; MDD w/ psychosis; r/o acute delirium 2/2 VRE UTI -Admit to geriatric psychiatry unit -Individual and group therapy -Medicine consult re: chronic medical conditions and VRE UTI -Start Zoloft 25 mg PO Daily and Risperdal 0.25 mg PO Daily@1700; will titrate as clinically appropriate -Obtain collateral history -Disposition planning Projected ELOS: 5-8 days Discharge Plan and Discharge Criteria: Discharge patient when he is psychiatrically stable - Smoking Cessation Smoking Cessation Initiated: No Reason for not providing: Not indicated
--- NOTE | 2017-09-07 12:20 | CARD ---
APPROVED REPORT EKG Measurement Heart [id number] <Conclusion> Wide QRS rhythm Left axis deviation Right bundle branch block T wave abnormality, consider lateral ischemia Abnormal ECG
[2017-09-07] MEDS: Multivitamin Vitamin B Complex (Nephro-Vite) Tab PO SCH (12:27)
[2017-09-07] MEDS: Albuterol-Ipratrop 3 mg / 0.5 (3 ml) UD INH SCH ×2 (15:39→19:33)
[2017-09-07 18:03] LABS: FOLATE > 20.0 ng/mL
--- NOTE | 2017-09-08 00:31 | CP.PCM.HP ---
Past Patient History - Past Medical History & Family History Past Medical History?: Yes - Past Social History Smoking Status: Former Smoker - CARDIAC Hx Cardiac Disorders: Yes (HTN) Hx Atrial Fibrillation: Yes Hx Hypercholesterolemia: Yes Hx Hypertension: Yes Other/Comment: Hx: CABG - PULMONARY Hx Respiratory Disorders: Yes (COPD) Hx Chronic Obstructive Pulmonary Disease (COPD): Yes - NEUROLOGICAL Hx Dementia: Yes Hx Seizures: No - HEENT Hx HEENT Problems: Yes (glasses) - RENAL Hx Chronic Kidney Disease: Yes - ENDOCRINE/METABOLIC Hx Endocrine Disorders: Yes (DM) Hx Diabetes Mellitus Type 2: Yes - HEMATOLOGICAL/ONCOLOGICAL Hx Bruising: Yes (on elequis) Hx Human Immunodeficiency Virus (HIV): No - INTEGUMENTARY Hx Dermatological Problems: No - MUSCULOSKELETAL/RHEUMATOLOGICAL Hx Musculoskeletal Disorders: Yes Hx Falls: Yes Hx Unsteady Gait: Yes - GASTROINTESTINAL Hx Gastrointestinal Disorders: No - GENITOURINARY/GYNECOLOGICAL Hx Genitourinary Disorders: Yes (UTI) - PSYCHIATRIC Hx Physical Abuse: No Hx Sexual Abuse: No Hx Substance Use: No - SURGICAL HISTORY Hx Surgeries: Yes Hx Coronary Artery Bypass Graft: Yes Hx Open Heart Surgery: Yes (CABG) - ANESTHESIA Hx Anesthesia: Yes Hx Anesthesia Reactions: No Hx Malignant Hyperthermia: No Has any member of the family had a problem w/ anesthesia?: No Meds Allergies/Adverse Reactions: Allergies Allergy/AdvReac Type Severity Reaction Status Date / Time No Known Allergies Allergy Verified 09/05/17 19:30 Results - Vital Signs Recent Vital Signs: Last Vital Signs Temp 97.1 F L 09/07/17 15:00 Pulse 76 09/07/17 17:30 Resp 18 09/07/17 15:00 BP 107/63 09/07/17 17:30 Pulse Ox 98 09/07/17 07:03 - Labs Result Diagrams: 09/07/17 04:04 09/07/17 08:15 Labs: Laboratory Results - last 24 hr 09/07/17 09/07/17 09/07/17 04:04 04:04 06:12 WBC 10.5 RBC 4.08 L Hgb 12.3 Hct 36.6 MCV 89.5 MCH 30.1 MCHC 33.6 RDW 14.6 H Plt Count 338 MPV 8.2 Neut % (Auto) 62.7 Lymph % (Auto) 22.2 [place] % (Auto) 9.1 Eos % (Auto) 4.8 H Baso % (Auto) 1.2 Neut # (Auto) 6.6 Lymph # (Auto) 2.3 [place] # (Auto) 1.0 H Eos # (Auto) 0.5 Baso # (Auto) 0.1 Sodium 141 Potassium 4.0 Chloride 108 H Carbon Dioxide 25 Anion Gap 12 BUN 38 H Creatinine 1.3 Est GFR ( Amer) > 60 Est GFR (Non-Af Amer) 53 Random Glucose 146 H Hemoglobin A1c Calcium 9.2 Iron TIBC % Saturation Ferritin Total Bilirubin AST ALT Alkaline Phosphatase Total Protein Albumin Globulin Albumin/Globulin Ratio Triglycerides Cholesterol LDL Cholesterol Direct HDL Cholesterol Vitamin B12 Folate Free T4 Thyroxine (T4) TSH 3rd Generation Urine Opiates Screen Negative Urine Methadone Screen Negative Ur Barbiturates Screen Negative Ur Phencyclidine Scrn Negative Ur Amphetamines Screen Negative U Benzodiazepines Scrn Negative U Oth Cocaine Metabols Negative U Cannabinoids Screen Negative Alcohol, Quantitative < 10 RPR 09/07/17 09/07/17 09/07/17 08:15 08:15 08:15 WBC RBC Hgb Hct MCV MCH MCHC RDW Plt Count MPV Neut % (Auto) Lymph % (Auto) [place] % (Auto) Eos % (Auto) Baso % (Auto) Neut # (Auto) Lymph # (Auto) [place] # (Auto) Eos # (Auto) Baso # (Auto) Sodium 142 Potassium 3.9 Chloride 105 Carbon Dioxide 27 Anion Gap 14 BUN 34 H Creatinine 1.4 Est GFR ( Amer) 59 Est GFR (Non-Af Amer) 49 Random Glucose 120 H Hemoglobin A1c 7.0 H Calcium 9.4 Iron TIBC % Saturation Ferritin 250.0 Total Bilirubin 0.5 AST 37 ALT 28 Alkaline Phosphatase 65 Total Protein 7.2 Albumin 3.8 Globulin 3.4 Albumin/Globulin Ratio 1.1 Triglycerides 186 H Cholesterol 234 H LDL Cholesterol Direct 167 H HDL Cholesterol 34 Vitamin B12 370 Folate > 20.0 Free T4 1.48 Thyroxine (T4) 9.26 TSH 3rd Generation 1.43 Urine Opiates Screen Urine Methadone Screen Ur Barbiturates Screen Ur Phencyclidine Scrn Ur Amphetamines Screen U Benzodiazepines Scrn U Oth Cocaine Metabols U Cannabinoids Screen Alcohol, Quantitative RPR 09/07/17 09/07/17 08:15 08:15 WBC RBC Hgb Hct MCV MCH MCHC RDW Plt Count MPV Neut % (Auto) Lymph % (Auto) [place] % (Auto) Eos % (Auto) Baso % (Auto) Neut # (Auto) Lymph # (Auto) [place] # (Auto) Eos # (Auto) Baso # (Auto) Sodium Potassium Chloride Carbon Dioxide Anion Gap BUN Creatinine Est GFR ( Amer) Est GFR (Non-Af Amer) Random Glucose Hemoglobin A1c Calcium Iron 72 TIBC 277 % Saturation 26 Ferritin Total Bilirubin AST ALT Alkaline Phosphatase Total Protein Albumin Globulin Albumin/Globulin Ratio Triglycerides Cholesterol LDL Cholesterol Direct HDL Cholesterol Vitamin B12 Folate Free T4 Thyroxine (T4) TSH 3rd Generation Urine Opiates Screen Urine Methadone Screen Ur Barbiturates Screen Ur Phencyclidine Scrn Ur Amphetamines Screen U Benzodiazepines Scrn U Oth Cocaine Metabols U Cannabinoids Screen Alcohol, Quantitative RPR Nonreactive
[2017-09-08] MEDS: Albuterol-Ipratrop 3 mg / 0.5 (3 ml) UD INH SCH ×4 (01:17→20:57)
[2017-09-08] MEDS: Multivitamin Vitamin B Complex (Nephro-Vite) Tab PO SCH (08:37)
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
[2017-09-08 20:58] LABS: SQUAMOUS EPITHIAL < 1 /hpf (0-5); URINE BILIRUBIN NEGATIVE (NEGATIVE); URINE BLOOD NEGATIVE (NEGATIVE); URINE CLARITY SLIGHTY-CLOUDY (Clear); URINE COLOR YELLOW (YELLOW); URINE GLUCOSE (UA) NEG (Normal); URINE LEUKOCYTE ESTERASE NEG Leu/uL (Negative); URINE NITRATE NEGATIVE (NEGATIVE); URINE PROTEIN 100 mg/dL (NEGATIVE); URINE UROBILINOGEN 0.2-1.0 mg/dL (0.2-1.0)
--- NOTE | 2017-09-08 23:25 | CP.PCM.PN ---
Subjective - Date & Time of Evaluation Date of Evaluation: 09/08/17 Time of Evaluation: 17:00 Objective - Vital Signs/Intake and Output Vital Signs (last 24 hours): Temp Pulse Resp BP Pulse Ox 97.1 F L 84 19 120/77 98 09/08/17 16:10 09/08/17 16:23 09/08/17 16:10 09/08/17 16:23 09/07/17 07:03 - Medications Medications: Current Medications Acetaminophen (Tylenol 325mg Tab) 650 mg PO Q4 PRN PRN Reason: Pain, moderate (4-7) Al Hydrox/Mg Hydrox/Simethicone (Maalox Plus 30 Ml) 30 ml PO Q4 PRN PRN Reason: Dyspepsia Albuterol/Ipratropium (Duoneb 3 Mg/0.5 Mg (3 Ml) Ud) 3 ml INH RQ6 [facility] Last Admin: 09/08/17 14:09 Dose: Not Given Apixaban (Eliquis) 2.5 mg PO BID [facility] PRN Reason: Protocol Last Admin: 09/08/17 16:23 Dose: 2.5 mg Aspirin (Ecotrin) 81 mg PO DAILY [facility] Last Admin: 09/08/17 08:37 Dose: 81 mg Bismuth Subsalicylate (Pepto-Bismol) 524 mg PO Q4 PRN PRN Reason: Diarrhea Carvedilol (Coreg) 12.5 mg PO BID [facility] Last Admin: 09/08/17 16:23 Dose: 12.5 mg Donepezil HCl (Aricept) 5 mg PO HS [facility] Last Admin: 09/08/17 21:03 Dose: 5 mg Haloperidol (Haldol) 0.5 mg PO Q8 PRN PRN Reason: Agitation Haloperidol Lactate (Haldol) 0.5 mg IM Q8 PRN PRN Reason: Agitation Lorazepam (Ativan) 0.5 mg PO HS PRN PRN Reason: Insomnia Stop: 09/21/17 06:44 Lorazepam (Ativan) 0.5 mg PO Q6 PRN PRN Reason: Anixety/Agitation Stop: 09/21/17 06:44 Last Admin: 09/08/17 16:26 Dose: 0.5 mg Magnesium Hydroxide (Milk Of Magnesia) 30 ml PO HS PRN PRN Reason: Constipation Risperidone (Risperdal Tab) 0.25 mg PO DAILY@1700 [facility] Last Admin: 09/08/17 16:25 Dose: 0.25 mg Sertraline HCl (Zoloft) 25 mg PO DAILY [facility] Last Admin: 09/08/17 08:37 Dose: 25 mg Vitamin B Complex/Vit C/Folic Acid (Nephro-Doreen) 1 tab PO DAILY [facility] Last Admin: 09/08/17 08:37 Dose: 1 tab - Labs Labs: 09/07/17 04:04 09/07/17 08:15
[2017-09-09] MEDS: Albuterol-Ipratrop 3 mg / 0.5 (3 ml) UD INH SCH ×4 (02:05→19:00)
[2017-09-09] MEDS: Multivitamin Vitamin B Complex (Nephro-Vite) Tab PO SCH (08:32)
--- NOTE | 2017-09-09 10:21 | PCM.PYCHPN ---
Psychiatric Progress Note - Psychiatric Progress Note Patient seen today, length of contact: Patient evaluated, case discussed w/ team , chart reviewed Patient Chief Complaint: "I'm okay." Problems Identified/Issues Discussed: Patient had a period of late day confusion yesterday ("sun-downing), but otherwise did not have any behavioral issues. Patient is currently calm w/ screenplay writer. He reports that his mood is okay. Denies AH/VH/SI/HI. He denies adverse effects to medications. Medication Change: Yes (Change timing of Risperdal) Medical Record Reviewed: Yes Consults ordered or reviewed: Medicine consult Mental Status Examination - Cognitive Function Orientation: Person, Place ("Hospital"), Situation Memory: Impaired Attention: Poor Concentration: Poor Association: Loose Fund of Knowledge: Poor Decription of patient's judgement and insights: Limited I/J due to chronic dementia - Mood Mood: Neutral - Affect Affect: Constricted - Speech Speech: Appropriate - Formal Thought Process Formal Thought Process: Paranoia Psychotic Thoughts and Behaviors: +Mild paranoia; he does not feel in acute danger at this time - Suicidal Ideation Suicidal Ideation: No - Homicidal Ideation Homicidal Ideation: No Goal/Treatment Plan - Goal/Treatment Plan Need for Continued Stay: Discharge may exacerbated symptoms, Severe functional impairment Progress Toward Problem(s) and Goals/Treatment Plan: Dementia w/ behavioral disturbance; MDD w/ psychosis -Individual and group therapy -Medicine consult re: chronic medical conditions -Continue Zoloft 25 mg PO Daily and Risperdal 0.25 mg PO Daily@1500 -Continue Aricept 5 mg PO HS -Collateral history obtained from the patient's sister -Disposition planning Estimated Date of D/C: 09/14/17 - Smoking Cessation Smoking Cessation Initiated: No Reason for not providing: Not indicated
--- NOTE | 2017-09-10 00:27 | CP.PCM.PN ---
Subjective - Date & Time of Evaluation Date of Evaluation: 09/09/17 Time of Evaluation: 19:15 Objective - Vital Signs/Intake and Output Vital Signs (last 24 hours): Temp Pulse Resp BP Pulse Ox 97.2 F L 94 H 20 137/84 98 09/09/17 16:20 09/09/17 20:23 09/09/17 16:20 09/09/17 20:23 09/07/17 07:03 - Medications Medications: Current Medications Acetaminophen (Tylenol 325mg Tab) 650 mg PO Q4 PRN PRN Reason: Pain, moderate (4-7) Al Hydrox/Mg Hydrox/Simethicone (Maalox Plus 30 Ml) 30 ml PO Q4 PRN PRN Reason: Dyspepsia Albuterol/Ipratropium (Duoneb 3 Mg/0.5 Mg (3 Ml) Ud) 3 ml INH RQ6 [facility] Last Admin: 09/09/17 14:12 Dose: Not Given Apixaban (Eliquis) 2.5 mg PO BID [facility] PRN Reason: Protocol Last Admin: 09/09/17 16:26 Dose: 2.5 mg Aspirin (Ecotrin) 81 mg PO DAILY [facility] Last Admin: 09/09/17 08:33 Dose: 81 mg Bismuth Subsalicylate (Pepto-Bismol) 524 mg PO Q4 PRN PRN Reason: Diarrhea Carvedilol (Coreg) 12.5 mg PO BID [facility] Last Admin: 09/09/17 20:23 Dose: 12.5 mg Donepezil HCl (Aricept) 5 mg PO HS [facility] Last Admin: 09/09/17 21:04 Dose: 5 mg Haloperidol (Haldol) 0.5 mg PO Q8 PRN PRN Reason: Agitation Haloperidol Lactate (Haldol) 0.5 mg IM Q8 PRN PRN Reason: Agitation Lorazepam (Ativan) 0.5 mg PO HS PRN PRN Reason: Insomnia Stop: 09/21/17 06:44 Lorazepam (Ativan) 0.5 mg PO Q6 PRN PRN Reason: Anixety/Agitation Stop: 09/21/17 06:44 Last Admin: 09/09/17 20:31 Dose: 0.5 mg Magnesium Hydroxide (Milk Of Magnesia) 30 ml PO HS PRN PRN Reason: Constipation Risperidone (Risperdal Tab) 0.25 mg PO DAILY@1500 [facility] Last Admin: 09/09/17 15:12 Dose: 0.25 mg Sertraline HCl (Zoloft) 25 mg PO DAILY [facility] Last Admin: 09/09/17 08:33 Dose: 25 mg Vitamin B Complex/Vit C/Folic Acid (Nephro-Doreen) 1 tab PO DAILY [facility] Last Admin: 09/09/17 08:32 Dose: 1 tab - Labs Labs: 09/07/17 04:04 09/07/17 08:15
[2017-09-10] MEDS: Albuterol-Ipratrop 3 mg / 0.5 (3 ml) UD INH SCH ×4 (01:37→21:17)
--- NOTE | 2017-09-10 09:52 | PCM.PYCHPN ---
Psychiatric Progress Note - Psychiatric Progress Note Patient seen today, length of contact: Patient evaluated, case discussed w/ team , chart reviewed Patient Chief Complaint: "I'm okay." Problems Identified/Issues Discussed: Patient continues to have periods of late day confusion, but is otherwise in good behavioral control. He denies acute depression/anxiety. Denies AH/VH/SI/ HI. He denies adverse effects to medications. Medication Change: No Medical Record Reviewed: Yes Consults ordered or reviewed: Medicine consult Mental Status Examination - Cognitive Function Orientation: Person, Place ("Hospital"), Situation Memory: Impaired Attention: Poor Concentration: Poor Association: Loose Fund of Knowledge: Poor Decription of patient's judgement and insights: Limited I/J due to chronic dementia - Mood Mood: Neutral - Affect Affect: Constricted - Speech Speech: Appropriate - Formal Thought Process Formal Thought Process: Loosening of associations Psychotic Thoughts and Behaviors: No acute AH/VH/paranoia/delusions - Suicidal Ideation Suicidal Ideation: No - Homicidal Ideation Homicidal Ideation: No Goal/Treatment Plan - Goal/Treatment Plan Need for Continued Stay: Discharge may exacerbated symptoms, Severe functional impairment Progress Toward Problem(s) and Goals/Treatment Plan: Dementia w/ behavioral disturbance; MDD w/ psychosis -Individual and group therapy -Medicine consult re: chronic medical conditions -Continue Zoloft 25 mg PO Daily and Risperdal 0.25 mg PO Daily@1500 -Continue Aricept 5 mg PO HS -Collateral history obtained from the patient's sister -Disposition planning Estimated Date of D/C: 09/14/17
[2017-09-10] MEDS: Multivitamin Vitamin B Complex (Nephro-Vite) Tab PO SCH (10:01)
[2017-09-10] MEDS: RISPERIDONE 0.25 MG ODT PO PRN (20:00)
--- NOTE | 2017-09-10 22:54 | CP.PCM.PN ---
Subjective - Date & Time of Evaluation Date of Evaluation: 09/10/17 Time of Evaluation: 08:20 - Subjective Subjective: Seen and examined at the bed side. C/O Cough, productive greenish-yellow sputum. No fever or chills. No CP or Sob. Objective - Vital Signs/Intake and Output Vital Signs (last 24 hours): Temp Pulse Resp BP Pulse Ox 98.1 F 81 20 151/73 H 98 09/10/17 16:17 09/10/17 20:00 09/10/17 20:00 09/10/17 20:00 09/07/17 07:03 - Medications Medications: Current Medications Acetaminophen (Tylenol 325mg Tab) 650 mg PO Q4 PRN PRN Reason: Pain, moderate (4-7) Al Hydrox/Mg Hydrox/Simethicone (Maalox Plus 30 Ml) 30 ml PO Q4 PRN PRN Reason: Dyspepsia Albuterol/Ipratropium (Duoneb 3 Mg/0.5 Mg (3 Ml) Ud) 3 ml INH RQ6 [facility] Last Admin: 09/10/17 21:17 Dose: 3 ml Apixaban (Eliquis) 2.5 mg PO BID [facility] PRN Reason: Protocol Last Admin: 09/10/17 16:13 Dose: 2.5 mg Aspirin (Ecotrin) 81 mg PO DAILY [facility] Last Admin: 09/10/17 10:01 Dose: 81 mg Bismuth Subsalicylate (Pepto-Bismol) 524 mg PO Q4 PRN PRN Reason: Diarrhea Carvedilol (Coreg) 12.5 mg PO BID [facility] Last Admin: 09/10/17 16:14 Dose: 12.5 mg Donepezil HCl (Aricept) 5 mg PO HS [facility] Last Admin: 09/10/17 20:59 Dose: 5 mg Levofloxacin (Levaquin) 500 mg PO DAILY@1999 [facility] PRN Reason: Protocol Lorazepam (Ativan) 0.5 mg PO HS PRN PRN Reason: Insomnia Stop: 09/21/17 06:44 Lorazepam (Ativan) 0.5 mg PO Q6 PRN PRN Reason: Anixety/Agitation Stop: 09/21/17 06:44 Last Admin: 09/09/17 20:31 Dose: 0.5 mg Magnesium Hydroxide (Milk Of Magnesia) 30 ml PO HS PRN PRN Reason: Constipation Risperidone (Risperdal Tab) 0.25 mg PO DAILY@1500 [facility] Last Admin: 09/10/17 15:28 Dose: 0.25 mg Risperidone (Risperidone Odt 0.25mg) 0.25 mg PO Q12 PRN PRN Reason: Agitation Last Admin: 09/10/17 20:00 Dose: 0.25 mg Sertraline HCl (Zoloft) 25 mg PO DAILY [facility] Last Admin: 09/10/17 10:01 Dose: 25 mg Vitamin B Complex/Vit C/Folic Acid (Nephro-Doreen) 1 tab PO DAILY [facility] Last Admin: 09/10/17 10:01 Dose: 1 tab - Labs Labs: 09/07/17 04:04 09/07/17 08:15 - Constitutional Appears: Well, No Acute Distress - Head Exam Head Exam: ATRAUMATIC, NORMAL INSPECTION, NORMOCEPHALIC - Eye Exam Eye Exam: EOMI, Normal appearance, PERRL Pupil Exam: NORMAL ACCOMODATION, PERRL - ENT Exam ENT Exam: Mucous Membranes Moist, Normal Exam - Neck Exam Neck Exam: Full ROM, Normal Inspection. absent: Lymphadenopathy - Respiratory Exam Respiratory Exam: Clear to Ausculation Bilateral, NORMAL BREATHING PATTERN - Cardiovascular Exam Cardiovascular Exam: REGULAR RHYTHM, +S1, +S2. absent: Murmur - GI/Abdominal Exam GI & Abdominal Exam: Soft, Normal Bowel Sounds. absent: Tenderness - Extremities Exam Extremities Exam: Full ROM, Normal Capillary Refill, Normal Inspection. absent : Joint Swelling, Pedal Edema - Back Exam Back Exam: NORMAL INSPECTION - Neurological Exam Neurological Exam: Abnormal Gait, Alert, Altered, Awake, CN II-XII Intact - Psychiatric Exam Psychiatric exam: Normal Affect, Normal Mood - Skin Skin Exam: Dry, Intact, Normal Color, Warm Additional comments: CXR(09/07/17): LUNGS: Lung aguila appear slightly hyperinflated consistent with significant emphysematous changes. Additionally, there appears to be bibasilar atelectasis/ scarring. . Questionable underlying mild fibrosis right and to a lesser degree left lung bases. PLEURA: No significant pleural effusion identified, no pneumothorax apparent. CARDIOVASCULAR: Sternotomy wires and CABG clips again noted. Heart size within range of normal. OSSEOUS STRUCTURES: No significant abnormalities. VISUALIZED UPPER ABDOMEN: Normal. OTHER FINDINGS: None. IMPRESSION: Lung aguila appear slightly hyperinflated consistent with significant emphysematous changes. Additionally, there appears to be bibasilar atelectasis/ scarring. . Questionable underlying mild fibrosis right and to a lesser degree left lung bases. Assessment and Plan (1) Acute bronchitis Assessment & Plan: H/O COPD Levaquin 500mg Daily Continue Duoneb Q6hrs pRN Status: Acute (2) Dementia with behavioral disturbance Status: Chronic (3) Atrial fibrillation Status: Chronic
[2017-09-10] MEDS: levoFLOXacin 500 MG TAB PO SCH (23:18)
[2017-09-11] MEDS: Albuterol-Ipratrop 3 mg / 0.5 (3 ml) UD INH SCH ×4 (00:59→19:48)
[2017-09-11] MEDS: Multivitamin Vitamin B Complex (Nephro-Vite) Tab PO SCH (08:48)
--- NOTE | 2017-09-11 08:58 | PCM.PYCHPN ---
Psychiatric Progress Note - Psychiatric Progress Note Patient seen today, length of contact: Patient evaluated, case discussed w/ team , chart reviewed Patient Chief Complaint: I will be ok if people leave me alone Problems Identified/Issues Discussed: pt on evaluation seen in bed, anxious mood and affect, irritable, pt confused oriented to person only, argumentative with stafff needs a lot of encouragemnt to take medications. 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 rule out current hyperactive delirium due to acute bronchitis Medication Change: Yes (increase risperidone to 0.5mg bid) Medical Record Reviewed: Yes Mental Status Examination - Cognitive Function Orientation: Person, Place ("Hospital"), Situation Memory: Impaired Attention: Poor Concentration: Poor Association: Loose Fund of Knowledge: Poor - Mood Mood: Neutral - Affect Affect: Constricted - Speech Speech: Appropriate - Formal Thought Process Formal Thought Process: Loosening of associations - Suicidal Ideation Suicidal Ideation: No - Homicidal Ideation Homicidal Ideation: No Goal/Treatment Plan - Goal/Treatment Plan Need for Continued Stay: Discharge may exacerbated symptoms, Severe functional impairment Progress Toward Problem(s) and Goals/Treatment Plan: change risperidone to mtab to ensure compliance and increase dose to 0.5mg bid for sundowning with behavioral disturbances continue with sertaline 25 mg monitor pt for psychopharmacological effects and side effect profile Estimated Date of D/C: 09/14/17
--- NOTE | 2017-09-11 12:38 | CP.PCM.CON ---
History of Present Illness - History of Present Illness History of Present Illness: Pt is well known to the advertising copy writer from his multiple [facility] admissions. The advertising copy writer has observed his cognitive decline over the last 1+ year. On the DRS, patient scored an overall score of 75>, Pt unable to repeat/recall even 2 digits backward. Pt unable to name any items in a supermarket- initiation poor , pt unable to state year, month, day/date, pt unable to relate recent circumstances, unable to draw commonalities among items. Significant/severe cognitive deficits noted. Overall 75> Past Patient History - Past Medical History & Family History Past Medical History?: Yes - Past Social History Smoking Status: Former Smoker - CARDIAC Hx Cardiac Disorders: Yes (HTN) Hx Atrial Fibrillation: Yes Hx Hypercholesterolemia: Yes Hx Hypertension: Yes Other/Comment: Hx: CABG - PULMONARY Hx Respiratory Disorders: Yes (COPD) Hx Chronic Obstructive Pulmonary Disease (COPD): Yes - NEUROLOGICAL Hx Dementia: Yes Hx Seizures: No - HEENT Hx HEENT Problems: Yes (glasses) - RENAL Hx Chronic Kidney Disease: Yes - ENDOCRINE/METABOLIC Hx Endocrine Disorders: Yes (DM) Hx Diabetes Mellitus Type 2: Yes - HEMATOLOGICAL/ONCOLOGICAL Hx Bruising: Yes (on elequis) Hx Human Immunodeficiency Virus (HIV): No - INTEGUMENTARY Hx Dermatological Problems: No - MUSCULOSKELETAL/RHEUMATOLOGICAL Hx Musculoskeletal Disorders: Yes Hx Falls: Yes Hx Unsteady Gait: Yes - GASTROINTESTINAL Hx Gastrointestinal Disorders: No - GENITOURINARY/GYNECOLOGICAL Hx Genitourinary Disorders: Yes (UTI) - PSYCHIATRIC Hx Physical Abuse: No Hx Sexual Abuse: No Hx Substance Use: No - SURGICAL HISTORY Hx Surgeries: Yes Hx Coronary Artery Bypass Graft: Yes Hx Open Heart Surgery: Yes (CABG) - ANESTHESIA Hx Anesthesia: Yes Hx Anesthesia Reactions: No Hx Malignant Hyperthermia: No Has any member of the family had a problem w/ anesthesia?: No Meds Allergies/Adverse Reactions: Allergies Allergy/AdvReac Type Severity Reaction Status Date / Time No Known Allergies Allergy Verified 09/05/17 19:30 - Medications Medications: Current Medications Acetaminophen (Tylenol 325mg Tab) 650 mg PO Q4 PRN PRN Reason: Pain, moderate (4-7) Al Hydrox/Mg Hydrox/Simethicone (Maalox Plus 30 Ml) 30 ml PO Q4 PRN PRN Reason: Dyspepsia Albuterol/Ipratropium (Duoneb 3 Mg/0.5 Mg (3 Ml) Ud) 3 ml INH RQ6 [facility] Last Admin: 09/11/17 09:08 Dose: 3 ml Apixaban (Eliquis) 2.5 mg PO BID [facility] PRN Reason: Protocol Last Admin: 09/11/17 08:49 Dose: 2.5 mg Aspirin (Ecotrin) 81 mg PO DAILY [facility] Last Admin: 09/11/17 08:48 Dose: 81 mg Bismuth Subsalicylate (Pepto-Bismol) 524 mg PO Q4 PRN PRN Reason: Diarrhea Carvedilol (Coreg) 12.5 mg PO BID [facility] Last Admin: 09/10/17 16:14 Dose: 12.5 mg Donepezil HCl (Aricept) 5 mg PO HS [facility] Last Admin: 09/10/17 20:59 Dose: 5 mg Levofloxacin (Levaquin) 500 mg PO DAILY@2000 [facility] PRN Reason: Protocol Last Admin: 09/10/17 23:18 Dose: Not Given Lorazepam (Ativan) 0.5 mg PO HS PRN PRN Reason: Insomnia Stop: 09/21/17 06:44 Lorazepam (Ativan) 0.5 mg PO Q6 PRN PRN Reason: Anixety/Agitation Stop: 09/21/17 06:44 Last Admin: 09/09/17 20:31 Dose: 0.5 mg Magnesium Hydroxide (Milk Of Magnesia) 30 ml PO HS PRN PRN Reason: Constipation Risperidone (Risperidone Odt 0.25mg) 0.25 mg PO Q12 PRN PRN Reason: Agitation Last Admin: 09/10/17 20:00 Dose: 0.25 mg Risperidone (Risperdal M-Tab) 0.5 mg PO BID [facility] Sertraline HCl (Zoloft) 25 mg PO DAILY [facility] Last Admin: 09/11/17 08:49 Dose: 25 mg Vitamin B Complex/Vit C/Folic Acid (Nephro-Doreen) 1 tab PO DAILY [facility] Last Admin: 09/11/17 08:48 Dose: 1 tab Results - Vital Signs Recent Vital Signs: Last Vital Signs Temp 98.6 F 09/11/17 06:00 Pulse 97 H 09/11/17 06:00 Resp 20 09/11/17 06:00 BP 128/67 09/11/17 06:00 Pulse Ox 98 02/05/18 07:03 - Labs Result Diagrams: 09/07/17 04:04 09/07/17 08:15
[2017-09-11] MEDS: Risperidone M tab 0.5MG PO SCH ×3 (13:13→21:07)
[2017-09-11 15:58] LABS: BASO % 0.3 % (0.0-2.0); EOS % 0.3 % (0.0-4.0); HEMOGLOBIN 9.8 g/dL (12.0-18.0); LYMPH # 0.7 K/uL (1.0-4.3); MEAN CELL VOLUME 90.5 fl (80.0-94.0); MEAN CORPUSCULAR HEMOGLOBIN 29.6 pg (27.0-31.0); MEAN CORPUSCULAR HGB CONC 32.7 g/dL (33.0-37.0); MEAN PLATELET VOLUME 8.1 fl (7.2-11.7); MONO # 1.1 K/uL (0.0-0.8); MONO % 11.6 % (0.0-10.0); NEUT % 80.8 % (50.0-75.0); PLATELET COUNT 231 K/uL (130-400); RED CELL DISTRIBUTION WIDTH 14.3 % (11.5-14.5); WHITE BLOOD COUNT 9.9 K/uL (4.8-10.8)
[2017-09-11 16:37] LABS: CALCIUM 8.7 mg/dL (8.4-10.2)
[2017-09-11] MEDS: Sodium Chloride 0.9% 1,000 ML IV SCH (17:35)
[2017-09-11 17:42] LABS: BANDS 17 % (0-2); BLASTS 1 % (0-0); LYMPHOCYTE 14 % (20-50); MONOCYTE 9 % (0-10); NEUTROPHIL 59 % (42-75); TOTAL CELLS COUNTED 100
[2017-09-11 17:43] LABS: PLATELET ESTIMATE NORMAL (NORMAL)
[2017-09-11 17:44] LABS: ANISOCYTOSIS SLIGHT; HYPOCHROMIC SLIGHT; POIKILOCYTOSIS SLIGHT
[2017-09-11 17:45] LABS: GIANT PLATELETS PRESENT; OVALOCYTES SLIGHT; TEARDROP CELLS SLIGHT
[2017-09-11 17:46] LABS: TOXIC GRANULATION PRESENT
[2017-09-11] MEDS: levoFLOXacin 500 MG TAB PO SCH (20:42)
--- NOTE | 2017-09-12 00:34 | CP.PCM.PN ---
Subjective - Date & Time of Evaluation Date of Evaluation: 09/11/17 Time of Evaluation: 12:10 Objective - Vital Signs/Intake and Output Vital Signs (last 24 hours): Temp Pulse Resp BP Pulse Ox 98.1 F 75 19 85/49 L 98 09/11/17 15:51 09/11/17 17:22 09/11/17 15:51 09/11/17 17:22 09/07/17 07:03 - Medications Medications: Current Medications Acetaminophen (Tylenol 325mg Tab) 650 mg PO Q4 PRN PRN Reason: Pain, moderate (4-7) Al Hydrox/Mg Hydrox/Simethicone (Maalox Plus 30 Ml) 30 ml PO Q4 PRN PRN Reason: Dyspepsia Albuterol/Ipratropium (Duoneb 3 Mg/0.5 Mg (3 Ml) Ud) 3 ml INH RQ6 [facility] Last Admin: 09/11/17 19:48 Dose: 3 ml Apixaban (Eliquis) 2.5 mg PO BID [facility] PRN Reason: Protocol Last Admin: 09/11/17 17:23 Dose: 2.5 mg Aspirin (Ecotrin) 81 mg PO DAILY [facility] Last Admin: 09/11/17 08:48 Dose: 81 mg Bismuth Subsalicylate (Pepto-Bismol) 524 mg PO Q4 PRN PRN Reason: Diarrhea Carvedilol (Coreg) 12.5 mg PO BID [facility] Last Admin: 09/11/17 17:22 Dose: Not Given Donepezil HCl (Aricept) 5 mg PO HS [facility] Last Admin: 09/11/17 21:06 Dose: 5 mg Sodium Chloride (Sodium Chloride 0.9%) 1,000 mls @ 100 mls/hr IV .Q10H [facility] Stop: 09/14/17 17:16 Last Admin: 09/11/17 17:35 Dose: 100 mls/hr Levofloxacin (Levaquin) 500 mg PO DAILY@2000 [facility] PRN Reason: Protocol Last Admin: 09/11/17 20:42 Dose: 500 mg Lorazepam (Ativan) 0.5 mg PO HS PRN PRN Reason: Insomnia Stop: 09/21/17 06:44 Lorazepam (Ativan) 0.5 mg PO Q6 PRN PRN Reason: Anixety/Agitation Stop: 09/21/17 06:44 Last Admin: 09/09/17 20:31 Dose: 0.5 mg Magnesium Hydroxide (Milk Of Magnesia) 30 ml PO HS PRN PRN Reason: Constipation Risperidone (Risperidone Odt 0.25mg) 0.25 mg PO Q12 PRN PRN Reason: Agitation Last Admin: 09/10/17 20:00 Dose: 0.25 mg Risperidone (Risperdal M-Tab) 0.5 mg PO BID [facility] Last Admin: 09/11/17 21:07 Dose: 0.5 mg Sertraline HCl (Zoloft) 25 mg PO DAILY [facility] Last Admin: 09/11/17 08:49 Dose: 25 mg Vitamin B Complex/Vit C/Folic Acid (Nephro-Doreen) 1 tab PO DAILY [facility] Last Admin: 09/11/17 08:48 Dose: 1 tab - Labs Labs: 09/11/17 15:54 09/11/17 15:54 Assessment and Plan (1) Acute bronchitis Status: Acute (2) Dementia with behavioral disturbance Status: Chronic (3) Atrial fibrillation Status: Chronic
[2017-09-12] MEDS: Albuterol-Ipratrop 3 mg / 0.5 (3 ml) UD INH SCH ×4 (01:00→20:27)
[2017-09-12] MEDS: Sodium Chloride 0.9% 1,000 ML IV SCH ×2 (04:15→15:43)
--- NOTE | 2017-09-12 09:08 | PCM.PYCHPN ---
Psychiatric Progress Note - Psychiatric Progress Note Patient seen today, length of contact: Patient evaluated, case discussed w/ team , chart reviewed Patient Chief Complaint: I am ok Problems Identified/Issues Discussed: pt seen in bed, resting, currently receiving IV antibiotics, pt as per staff has been selectively compliant with medications, continues to have episodes of agitation and irritability, possible delirium on top of dementia due to current infection DSM 5 Symptoms Update: major neurocognitive disorder alzheimer type R/O hyperactive delirium Medication Change: No (increase risperidone to 0.5mg bid) Medical Record Reviewed: Yes Mental Status Examination - Cognitive Function Orientation: Person, Place ("Hospital"), Situation Memory: Impaired Attention: Poor Concentration: Poor Association: Loose Fund of Knowledge: Poor - Mood Mood: Neutral - Affect Affect: Constricted - Speech Speech: Appropriate - Formal Thought Process Formal Thought Process: Loosening of associations - Suicidal Ideation Suicidal Ideation: No - Homicidal Ideation Homicidal Ideation: No Goal/Treatment Plan - Goal/Treatment Plan Need for Continued Stay: Discharge may exacerbated symptoms, Severe functional impairment Progress Toward Problem(s) and Goals/Treatment Plan: continue with sertaline 25 mg, risperidone mtab 0.5mg bid monitor pt for psychopharmacological effects and side effect profile Estimated Date of D/C: 09/14/17
[2017-09-12] MEDS: Multivitamin Vitamin B Complex (Nephro-Vite) Tab PO SCH (09:19)
[2017-09-12] MEDS: Risperidone M tab 0.5MG PO SCH ×2 (09:20→16:24)
[2017-09-12] MEDS: levoFLOXacin 500 MG TAB PO SCH (20:18)
--- NOTE | 2017-09-12 23:57 | CP.PCM.PN ---
Subjective - Date & Time of Evaluation Date of Evaluation: 09/12/17 Time of Evaluation: 19:05 Objective - Vital Signs/Intake and Output Vital Signs (last 24 hours): Temp Pulse Resp BP Pulse Ox 98.2 F 76 18 118/64 98 09/12/17 15:14 09/12/17 16:23 09/12/17 15:14 09/12/17 16:23 09/07/17 07:03 - Medications Medications: Current Medications Acetaminophen (Tylenol 325mg Tab) 650 mg PO Q4 PRN PRN Reason: Pain, moderate (4-7) Al Hydrox/Mg Hydrox/Simethicone (Maalox Plus 30 Ml) 30 ml PO Q4 PRN PRN Reason: Dyspepsia Albuterol/Ipratropium (Duoneb 3 Mg/0.5 Mg (3 Ml) Ud) 3 ml INH RQ6 [facility] Last Admin: 09/12/17 20:27 Dose: 3 ml Apixaban (Eliquis) 2.5 mg PO BID [facility] PRN Reason: Protocol Last Admin: 09/12/17 16:24 Dose: 2.5 mg Aspirin (Ecotrin) 81 mg PO DAILY [facility] Last Admin: 09/12/17 09:26 Dose: 81 mg Bismuth Subsalicylate (Pepto-Bismol) 524 mg PO Q4 PRN PRN Reason: Diarrhea Carvedilol (Coreg) 12.5 mg PO BID [facility] Last Admin: 09/12/17 16:23 Dose: 12.5 mg Donepezil HCl (Aricept) 5 mg PO HS [facility] Last Admin: 09/12/17 21:18 Dose: 5 mg Sodium Chloride (Sodium Chloride 0.9%) 1,000 mls @ 100 mls/hr IV .Q10H [facility] Stop: 09/14/17 17:16 Last Admin: 09/12/17 15:43 Dose: 100 mls/hr Levofloxacin (Levaquin) 500 mg PO DAILY@2000 [facility] PRN Reason: Protocol Last Admin: 09/12/17 20:18 Dose: 500 mg Lorazepam (Ativan) 0.5 mg PO HS PRN PRN Reason: Insomnia Stop: 09/21/17 06:44 Lorazepam (Ativan) 0.5 mg PO Q6 PRN PRN Reason: Anixety/Agitation Stop: 09/21/17 06:44 Last Admin: 09/09/17 20:31 Dose: 0.5 mg Magnesium Hydroxide (Milk Of Magnesia) 30 ml PO HS PRN PRN Reason: Constipation Last Admin: 09/12/17 20:19 Dose: 30 ml Risperidone (Risperidone Odt 0.25mg) 0.25 mg PO Q12 PRN PRN Reason: Agitation Last Admin: 09/10/17 20:00 Dose: 0.25 mg Risperidone (Risperdal M-Tab) 0.5 mg PO BID [facility] Last Admin: 09/12/17 16:24 Dose: 0.5 mg Sertraline HCl (Zoloft) 25 mg PO DAILY [facility] Last Admin: 09/12/17 09:20 Dose: 25 mg Vitamin B Complex/Vit C/Folic Acid (Nephro-Doreen) 1 tab PO DAILY [facility] Last Admin: 09/12/17 09:19 Dose: 1 tab - Labs Labs: 09/11/17 15:54 09/11/17 15:54 Assessment and Plan (1) Acute bronchitis Status: Acute (2) Dementia with behavioral disturbance Status: Chronic (3) Atrial fibrillation Status: Chronic
[2017-09-13] MEDS: Albuterol-Ipratrop 3 mg / 0.5 (3 ml) UD INH SCH ×4 (01:14→19:45)
[2017-09-13 08:40] LABS: BLOOD UREA NITROGEN 42 mg/dl (9-20); CALCIUM 8.3 mg/dL (8.4-10.2); GFR AFRICAN-AMERICAN > 60; GFR NON-AFRICAN AMERICAN > 60
[2017-09-13] MEDS: Risperidone M tab 0.5MG PO SCH ×2 (08:56→17:24)
[2017-09-13] MEDS: Multivitamin Vitamin B Complex (Nephro-Vite) Tab PO SCH (08:57)
--- NOTE | 2017-09-13 10:42 | PCM.PYCHPN ---
Psychiatric Progress Note - Psychiatric Progress Note Patient seen today, length of contact: Patient evaluated, case discussed w/ team , chart reviewed Patient Chief Complaint: I am fine Problems Identified/Issues Discussed: pt seen in bed, resting, currently receiving IV fluids for dehydration, pt reported to be calmer, more compliant with medications, , no reported behavioral disturbances since last night DSM 5 Symptoms Update: major neurocognitive disorder with depressed mood and behavioral disturbances Medication Change: No (increase risperidone to 0.5mg bid) Medical Record Reviewed: Yes Mental Status Examination - Cognitive Function Orientation: Person, Place ("Hospital"), Situation Memory: Impaired Attention: Poor Concentration: Poor Association: Loose Fund of Knowledge: Poor - Mood Mood: Neutral - Affect Affect: Constricted - Speech Speech: Appropriate - Formal Thought Process Formal Thought Process: Loosening of associations - Suicidal Ideation Suicidal Ideation: No - Homicidal Ideation Homicidal Ideation: No Goal/Treatment Plan - Goal/Treatment Plan Need for Continued Stay: Discharge may exacerbated symptoms, Severe functional impairment Progress Toward Problem(s) and Goals/Treatment Plan: continue with sertaline 25 mg, risperidone mtab 0.5mg bid pt HGB noted dropping to 8.2 will consult with medicine, NA 139 monitor pt for psychopharmacological effects and side effect profile Estimated Date of D/C: 09/14/17
[2017-09-13] MEDS: Sodium Chloride 0.9% 1,000 ML IV SCH ×2 (12:30→23:45)
[2017-09-13 16:07] LABS: HEMOGLOBIN 9.5 g/dL (12.0-18.0); MEAN CELL VOLUME 90.1 fl (80.0-94.0); MEAN CORPUSCULAR HEMOGLOBIN 29.3 pg (27.0-31.0); MEAN CORPUSCULAR HGB CONC 32.5 g/dL (33.0-37.0); RBC 3.24 Mil/uL (4.40-5.90); RED CELL DISTRIBUTION WIDTH 14.7 % (11.5-14.5); WHITE BLOOD COUNT 7.4 K/uL (4.8-10.8)
[2017-09-13] MEDS: levoFLOXacin 500 MG TAB PO SCH (20:46)
[2017-09-14] MEDS: Albuterol-Ipratrop 3 mg / 0.5 (3 ml) UD INH SCH ×2 (01:10→09:04)
[2017-09-14] MEDS: Multivitamin Vitamin B Complex (Nephro-Vite) Tab PO SCH (08:18)
[2017-09-14] MEDS: Risperidone M tab 0.5MG PO SCH ×2 (08:20→16:53)
--- NOTE | 2017-09-14 09:52 | PCM.PYCHPN ---
Psychiatric Progress Note - Psychiatric Progress Note Patient seen today, length of contact: Patient evaluated, case discussed w/ team , chart reviewed Patient Chief Complaint: I am alright today Problems Identified/Issues Discussed: pt seen in bed, appears calm more cooperative, compliant with medications no reported behavioral disturbances, pt oriented to person only, denied any current suicidal or homicidal ideations, denied perceptual disturbances pt at current mental status stable for alf placement DSM 5 Symptoms Update: major neurocognitive disorder alzheimer type Medication Change: No (increase risperidone to 0.5mg bid) Medical Record Reviewed: Yes Mental Status Examination - Cognitive Function Orientation: Person, Place ("Hospital"), Situation Memory: Impaired Attention: Poor Concentration: Poor Association: Loose Fund of Knowledge: Poor - Mood Mood: Neutral - Affect Affect: Constricted - Speech Speech: Appropriate - Formal Thought Process Formal Thought Process: Loosening of associations - Suicidal Ideation Suicidal Ideation: No - Homicidal Ideation Homicidal Ideation: No Goal/Treatment Plan - Goal/Treatment Plan Need for Continued Stay: Discharge may exacerbated symptoms, Severe functional impairment Progress Toward Problem(s) and Goals/Treatment Plan: continue with sertaline 25 mg, risperidone mtab 0.5mg bid pt cleared psychiatricaly for alf placement Estimated Date of D/C: 09/14/17
[2017-09-14] MEDS: levoFLOXacin 500 MG TAB PO SCH (20:45)
[2017-09-14] MEDS: RISPERIDONE 0.25 MG ODT PO PRN (22:43)
--- NOTE | 2017-09-14 23:26 | CP.PCM.PN ---
Subjective - Date & Time of Evaluation Date of Evaluation: 09/14/17 Time of Evaluation: 17:15 Objective - Vital Signs/Intake and Output Vital Signs (last 24 hours): Temp Pulse Resp BP Pulse Ox 97.2 F L 83 20 155/89 H 98 09/14/17 15:28 09/14/17 16:53 09/14/17 15:28 09/14/17 16:53 09/07/17 07:03 - Medications Medications: Current Medications Acetaminophen (Tylenol 325mg Tab) 650 mg PO Q4 PRN PRN Reason: Pain, moderate (4-7) Al Hydrox/Mg Hydrox/Simethicone (Maalox Plus 30 Ml) 30 ml PO Q4 PRN PRN Reason: Dyspepsia Aspirin (Ecotrin) 81 mg PO DAILY [facility] Last Admin: 09/14/17 08:19 Dose: 81 mg Bismuth Subsalicylate (Pepto-Bismol) 524 mg PO Q4 PRN PRN Reason: Diarrhea Carvedilol (Coreg) 12.5 mg PO BID [facility] Last Admin: 09/14/17 16:53 Dose: 12.5 mg Donepezil HCl (Aricept) 5 mg PO HS [facility] Last Admin: 09/14/17 21:11 Dose: 5 mg Levofloxacin (Levaquin) 500 mg PO DAILY@1999 [facility] PRN Reason: Protocol Last Admin: 09/14/17 20:45 Dose: 500 mg Magnesium Hydroxide (Milk Of Magnesia) 30 ml PO HS PRN PRN Reason: Constipation Last Admin: 09/12/17 20:19 Dose: 30 ml Risperidone (Risperidone Odt 0.25mg) 0.25 mg PO Q12 PRN PRN Reason: Agitation Last Admin: 09/14/17 22:43 Dose: 0.25 mg Risperidone (Risperdal M-Tab) 0.5 mg PO BID [facility] Last Admin: 09/14/17 16:53 Dose: 0.5 mg Sertraline HCl (Zoloft) 25 mg PO DAILY [facility] Last Admin: 09/14/17 08:19 Dose: 25 mg Vitamin B Complex/Vit C/Folic Acid (Nephro-Doreen) 1 tab PO DAILY [facility] Last Admin: 09/14/17 08:18 Dose: 1 tab - Labs Labs: 09/13/17 15:30 09/13/17 08:00 Assessment and Plan (1) Acute bronchitis Status: Acute (2) Dementia with behavioral disturbance Status: Chronic (3) Atrial fibrillation Status: Chronic
[2017-09-15] MEDS: Albuterol-Ipratrop 3 mg / 0.5 (3 ml) UD INH SCH ×3 (08:00→20:24)
[2017-09-15] MEDS: Multivitamin Vitamin B Complex (Nephro-Vite) Tab PO SCH (08:58)
[2017-09-15] MEDS: Risperidone M tab 0.5MG PO SCH ×2 (09:00→16:25)
--- NOTE | 2017-09-15 18:58 | PCM.PYCHPN ---
Psychiatric Progress Note - Psychiatric Progress Note Patient seen today, length of contact: Patient evaluated, case discussed w/ team , chart reviewed Patient Chief Complaint: reports feeling calmer, staff reports pt is less irritable, adherent with medications during day, last night required prn risperdal, requires assistance ambulation Problems Identified/Issues Discussed: alteration in mood alteration in ambulation alteration in cognition Medical Problems: per chart Diagnostic Results: per medicine per psychiatry per medicine per nursing DSM 5 Symptoms Update: changes in mood changes in cognition Medication Change: No Medical Record Reviewed: Yes Consults ordered or reviewed: pt being followed by hospitalist Mental Status Examination - Cognitive Function Orientation: Person, Place ("Hospital"), Situation Memory: Impaired Attention: Poor Concentration: Poor Association: Loose Fund of Knowledge: Poor Decription of patient's judgement and insights: impaired - Mood Mood: Neutral - Affect Affect: Constricted - Speech Speech: Appropriate - Formal Thought Process Formal Thought Process: Loosening of associations - Suicidal Ideation Suicidal Ideation: No - Homicidal Ideation Homicidal Ideation: No Goal/Treatment Plan - Goal/Treatment Plan Need for Continued Stay: Discharge may exacerbated symptoms, Severe functional impairment Progress Toward Problem(s) and Goals/Treatment Plan: inpt milieu visualization/vital signs per protocol and per clinical status adjust med per clinical status falls precautions discharge planning in progress Estimated Date of D/C: 09/18/17 - Smoking Cessation Smoking Cessation Initiated: No Reason for not providing: pt defers
[2017-09-15] MEDS: levoFLOXacin 500 MG TAB PO SCH (20:36)
[2017-09-15] MEDS ORDERED: Albuterol-Ipratrop 3 mg / 0.5 (3 ml) UD INH PRN (23:33)
[2017-09-15] MEDS: RISPERIDONE 0.25 MG ODT PO PRN (23:35)
[2017-09-16] MEDS: Albuterol-Ipratrop 3 mg / 0.5 (3 ml) UD INH SCH ×4 (01:00→20:45)
[2017-09-16] MEDS: Multivitamin Vitamin B Complex (Nephro-Vite) Tab PO SCH (08:25)
[2017-09-16] MEDS: RISPERIDONE 0.25 MG ODT PO PRN ×2 (08:28→21:09)
[2017-09-16] MEDS: Risperidone M tab 0.5MG PO SCH ×2 (09:45→16:08)
--- NOTE | 2017-09-16 18:44 | PCM.PYCHPN ---
Psychiatric Progress Note - Psychiatric Progress Note Patient seen today, length of contact: Patient evaluated, case discussed w/ team , chart reviewed Patient Chief Complaint: reports feeling calmer, staff reports pt is less irritable-seen in milieu speaking with peers , adherent with medications during day, has not received any prns today, requires assistance ambulation Problems Identified/Issues Discussed: alteration in mood alteration in ambulation alteration in cognition Medical Problems: per chart Diagnostic Results: per medicine per psychiatry per medicine per nursing DSM 5 Symptoms Update: alteration in cognition alteration Medication Change: No Medical Record Reviewed: Yes Mental Status Examination - Cognitive Function Orientation: Person, Place ("Hospital"), Situation Memory: Impaired Attention: Poor Concentration: Poor Association: Loose Fund of Knowledge: Poor Decription of patient's judgement and insights: impaired - Mood Mood: Neutral - Affect Affect: Constricted - Speech Speech: Appropriate - Formal Thought Process Formal Thought Process: Loosening of associations - Suicidal Ideation Suicidal Ideation: No - Homicidal Ideation Homicidal Ideation: No Goal/Treatment Plan - Goal/Treatment Plan Need for Continued Stay: Discharge may exacerbated symptoms, Severe functional impairment Progress Toward Problem(s) and Goals/Treatment Plan: inpt milieu visualization/vital signs per protocol and per clinical status adjust med per clinical status falls precautions discharge planning in progress Estimated Date of D/C: 09/18/17
[2017-09-16] MEDS: levoFLOXacin 500 MG TAB PO SCH (21:08)
--- NOTE | 2017-09-16 21:15 | CP.PCM.PN ---
Subjective - Date & Time of Evaluation Date of Evaluation: 09/15/17 Time of Evaluation: 11:45 Objective - Vital Signs/Intake and Output Vital Signs (last 24 hours): Temp Pulse Resp BP Pulse Ox 98.2 F 77 20 143/79 98 09/16/17 21:09 09/16/17 21:09 09/16/17 21:09 09/16/17 21:09 09/16/17 21:09 - Medications Medications: Current Medications Acetaminophen (Tylenol 325mg Tab) 650 mg PO Q4 PRN PRN Reason: Pain, moderate (4-7) Al Hydrox/Mg Hydrox/Simethicone (Maalox Plus 30 Ml) 30 ml PO Q4 PRN PRN Reason: Dyspepsia Albuterol/Ipratropium (Duoneb 3 Mg/0.5 Mg (3 Ml) Ud) 3 ml INH RQ6 [facility] OF [facility] Last Admin: 09/16/17 20:45 Dose: 3 ml Apixaban (Eliquis) 2.5 mg PO BID [facility] PRN Reason: Protocol Last Admin: 09/16/17 16:08 Dose: 2.5 mg Aspirin (Ecotrin) 81 mg PO DAILY [facility] Last Admin: 09/16/17 08:26 Dose: 81 mg Bismuth Subsalicylate (Pepto-Bismol) 524 mg PO Q4 PRN PRN Reason: Diarrhea Carvedilol (Coreg) 12.5 mg PO BID [facility] Last Admin: 09/16/17 16:16 Dose: 12.5 mg Donepezil HCl (Aricept) 5 mg PO HS [facility] Last Admin: 09/16/17 21:08 Dose: 5 mg Magnesium Hydroxide (Milk Of Magnesia) 30 ml PO HS PRN PRN Reason: Constipation Last Admin: 09/12/17 20:19 Dose: 30 ml Risperidone (Risperidone Odt 0.25mg) 0.25 mg PO Q12 PRN PRN Reason: Agitation Last Admin: 09/16/17 21:09 Dose: 0.25 mg Risperidone (Risperdal M-Tab) 0.5 mg PO BID ON [facility] Last Admin: 09/16/17 16:08 Dose: 0.5 mg Risperidone (Risperdal Tab) 0.25 mg PO HS [facility] Sertraline HCl (Zoloft) 25 mg PO DAILY [facility] Last Admin: 09/16/17 08:26 Dose: 25 mg Vitamin B Complex/Vit C/Folic Acid (Nephro-Doreen) 1 tab PO DAILY [facility] Last Admin: 09/16/17 08:25 Dose: 1 tab - Labs Labs: 09/13/17 15:30 09/13/17 08:00 Assessment and Plan (1) Acute bronchitis Status: Acute (2) Dementia with behavioral disturbance Status: Chronic (3) Atrial fibrillation Status: Chronic
--- NOTE | 2017-09-16 22:02 | CP.PCM.PN ---
Subjective - Date & Time of Evaluation Date of Evaluation: 09/16/17 Time of Evaluation: 11:45 Objective - Vital Signs/Intake and Output Vital Signs (last 24 hours): Temp Pulse Resp BP Pulse Ox 98.2 F 77 20 143/79 98 09/16/17 21:09 09/16/17 21:09 09/16/17 21:09 09/16/17 21:09 09/16/17 21:09 - Medications Medications: Current Medications Acetaminophen (Tylenol 325mg Tab) 650 mg PO Q4 PRN PRN Reason: Pain, moderate (4-7) Al Hydrox/Mg Hydrox/Simethicone (Maalox Plus 30 Ml) 30 ml PO Q4 PRN PRN Reason: Dyspepsia Albuterol/Ipratropium (Duoneb 3 Mg/0.5 Mg (3 Ml) Ud) 3 ml INH RQ6 [facility] Last Admin: 09/16/17 20:45 Dose: 3 ml Apixaban (Eliquis) 2.5 mg PO BID NAVA PRN Reason: Protocol Last Admin: 09/16/17 16:08 Dose: 2.5 mg Aspirin (Ecotrin) 81 mg PO DAILY [facility] Last Admin: 09/16/17 08:26 Dose: 81 mg Bismuth Subsalicylate (Pepto-Bismol) 524 mg PO Q4 PRN PRN Reason: Diarrhea Carvedilol (Coreg) 12.5 mg PO BID [facility] Last Admin: 09/16/17 16:16 Dose: 12.5 mg Donepezil HCl (Aricept) 5 mg PO HS [facility] Last Admin: 09/16/17 21:08 Dose: 5 mg Magnesium Hydroxide (Milk Of Magnesia) 30 ml PO HS PRN PRN Reason: Constipation Last Admin: 09/12/17 20:19 Dose: 30 ml Risperidone (Risperidone Odt 0.25mg) 0.25 mg PO Q12 PRN PRN Reason: Agitation Last Admin: 09/16/17 21:09 Dose: 0.25 mg Risperidone (Risperdal M-Tab) 0.5 mg PO BID [facility] Last Admin: 09/16/17 16:08 Dose: 0.5 mg Risperidone (Risperdal Tab) 0.25 mg PO HS [facility] Sertraline HCl (Zoloft) 25 mg PO DAILY [facility] Last Admin: 09/16/17 08:26 Dose: 25 mg Vitamin B Complex/Vit C/Folic Acid (Nephro-Doreen) 1 tab PO DAILY [facility] Last Admin: 09/16/17 08:25 Dose: 1 tab - Labs Labs: 09/13/17 15:30 09/13/17 08:00 Assessment and Plan (1) Acute bronchitis Status: Acute (2) Dementia with behavioral disturbance Status: Chronic (3) Atrial fibrillation Status: Chronic
[2017-09-17] MEDS: Albuterol-Ipratrop 3 mg / 0.5 (3 ml) UD INH SCH ×3 (01:00→13:45)
[2017-09-17] MEDS: Risperidone M tab 0.5MG PO SCH ×2 (08:51→17:39)
[2017-09-17] MEDS: Multivitamin Vitamin B Complex (Nephro-Vite) Tab PO SCH (08:51)
[2017-09-17 09:04] LABS: BASO # 0.1 K/uL (0.0-0.2); BASO % 0.4 % (0.0-2.0); EOS # 0.4 K/uL (0.0-0.7); EOS % 3.5 % (0.0-4.0); HEMOGLOBIN 10.4 g/dL (12.0-18.0); LYMPH # 1.8 K/uL (1.0-4.3); LYMPH % 15.9 % (20.0-40.0); MEAN CELL VOLUME 88.5 fl (80.0-94.0); MEAN CORPUSCULAR HEMOGLOBIN 29.5 pg (27.0-31.0); MEAN CORPUSCULAR HGB CONC 33.4 g/dL (33.0-37.0); MEAN PLATELET VOLUME 7.3 fl (7.2-11.7); MONO # 1.2 K/uL (0.0-0.8); MONO % 10.6 % (0.0-10.0); NEUT # 7.8 K/uL (1.8-7.0); NEUT % 69.6 % (50.0-75.0); RBC 3.53 Mil/uL (4.40-5.90); RED CELL DISTRIBUTION WIDTH 14.5 % (11.5-14.5); WHITE BLOOD COUNT 11.3 K/uL (4.8-10.8)
[2017-09-17 09:32] LABS: ALT/SGPT 27 U/L (21-72); AST/SGOT 27 U/L (17-59); BLOOD UREA NITROGEN 38 mg/dl (9-20); GFR AFRICAN-AMERICAN > 60; GFR NON-AFRICAN AMERICAN 59
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
--- NOTE | 2017-09-17 17:27 | PCM.PYCHPN ---
Psychiatric Progress Note - Psychiatric Progress Note Patient seen today, length of contact: Patient evaluated, case discussed w/ team , chart reviewed Patient Chief Complaint: pt seen seated in milieu, sleeping arrousible to stimulus, staff report pt has been adherent with rx., has had blood work today, pt to be followed by dr montoya. pt received risperdal 0.5mg po prn last night for excitation Problems Identified/Issues Discussed: alteration in mood alteration in ambulation alteration in cognition Medical Problems: per chart Diagnostic Results: per medicine per psychiatry per medicine per nursing DSM 5 Symptoms Update: alteration in cognition elevated wbc Medication Change: No Medical Record Reviewed: Yes Consults ordered or reviewed: dr montoya Mental Status Examination - Cognitive Function Orientation: Person, Place ("Hospital"), Situation Memory: Impaired Attention: Poor Concentration: Poor Association: Loose Fund of Knowledge: Poor Decription of patient's judgement and insights: impaired - Mood Mood: Neutral - Affect Affect: Constricted - Speech Speech: Appropriate - Formal Thought Process Formal Thought Process: Loosening of associations - Suicidal Ideation Suicidal Ideation: No - Homicidal Ideation Homicidal Ideation: No Goal/Treatment Plan - Goal/Treatment Plan Need for Continued Stay: Discharge may exacerbated symptoms, Severe functional impairment Progress Toward Problem(s) and Goals/Treatment Plan: inpt milieu visualization/vital signs per protocol and per clinical status adjust med per clinical status will adjust risperdal to 0.25po bid and 0.5mg po hs attempt maintain same total daily dose but attempt to disperse less during day and higher dose hs(attempt to avoid on going need for prns) dr montoya to follow up related to blood work falls precautions discharge planning in progress Estimated Date of D/C: 09/18/17 - Smoking Cessation Smoking Cessation Initiated: No Reason for not providing: deferred
[2017-09-17] MEDS: RISPERIDONE 0.25 MG ODT PO PRN (21:10)
[2017-09-18] MEDS: Albuterol-Ipratrop 3 mg / 0.5 (3 ml) UD INH SCH ×5 (01:00→19:20)
[2017-09-18] MEDS: Multivitamin Vitamin B Complex (Nephro-Vite) Tab PO SCH (08:32)
[2017-09-18] MEDS: RISPERIDONE 0.25 MG ODT PO SCH ×2 (08:33→09:09)
[2017-09-18] MEDS: Risperidone M tab 0.5MG PO SCH (08:33)
[2017-09-18] MEDS: Tobramycin 0.3% OPH OINT OS SCH ×3 (08:34→17:06)
--- NOTE | 2017-09-18 18:13 | PCM.PYCHPN ---
Psychiatric Progress Note - Psychiatric Progress Note Patient seen today, length of contact: Patient evaluated, case discussed w/ team , chart reviewed Patient Chief Complaint: pt seen seated in milieu, sleeping arrousible to stimulus, staff report pt has been adherent with rx., has had blood work today, pt to be followed by dr montoya. pt received risperdal 0.5mg po prn last night for excitation Problems Identified/Issues Discussed: alteration in mood alteration in ambulation alteration in cognition Medical Problems: per chart Diagnostic Results: per medicine per psychiatry per medicine per nursing DSM 5 Symptoms Update: alteration in cognition, alteration in self care, alteration in behavior Medication Change: Yes ( [id number] ) Medical Record Reviewed: Yes Consults ordered or reviewed: pt being followed by dr montoya Mental Status Examination - Cognitive Function Orientation: Person, Place ("Hospital"), Situation Memory: Impaired Attention: Poor Concentration: Poor Association: Loose Fund of Knowledge: Poor Decription of patient's judgement and insights: impaired - Mood Mood: Neutral - Affect Affect: Constricted - Speech Speech: Appropriate - Formal Thought Process Formal Thought Process: Loosening of associations - Suicidal Ideation Suicidal Ideation: No - Homicidal Ideation Homicidal Ideation: No Goal/Treatment Plan - Goal/Treatment Plan Need for Continued Stay: Discharge may exacerbated symptoms, Severe functional impairment Progress Toward Problem(s) and Goals/Treatment Plan: inpt milieu visualization/vital signs per protocol and per clinical status adjust med per clinical status will adjust risperdal to 0.25po bid and 0.5mg po hs attempt maintain same total daily dose but attempt to disperse less during day and higher dose hs(attempt to avoid on going need for prns)-pt has a prn order for risperdal 0.5mg po every 12 hours prn for agitation/behavior changes (pt is to receive more than 1.25mg rispderdal [standing/prn before hcp]). dr montoya to follow up related to blood work falls precautions discharge planning in progress Estimated Date of D/C: 09/23/17 - Smoking Cessation Smoking Cessation Initiated: No Reason for not providing: pt defer
[2017-09-18] MEDS ORDERED: Risperidone M tab 0.5MG PO SCH (22:00)
--- NOTE | 2017-09-19 00:32 | CP.PCM.PN ---
Subjective - Date & Time of Evaluation Date of Evaluation: 09/18/17 Time of Evaluation: 15:05 Objective - Vital Signs/Intake and Output Vital Signs (last 24 hours): Temp Pulse Resp BP Pulse Ox 97 F L 68 18 112/62 98 09/18/17 15:53 09/18/17 17:05 09/18/17 15:53 09/18/17 17:05 09/16/17 21:09 - Medications Medications: Current Medications Acetaminophen (Tylenol 325mg Tab) 650 mg PO Q4 PRN PRN Reason: Pain, moderate (4-7) Al Hydrox/Mg Hydrox/Simethicone (Maalox Plus 30 Ml) 30 ml PO Q4 PRN PRN Reason: Dyspepsia Albuterol/Ipratropium (Duoneb 3 Mg/0.5 Mg (3 Ml) Ud) 3 ml INH RQ6 [facility] Last Admin: 09/18/17 19:20 Dose: 3 ml Apixaban (Eliquis) 2.5 mg PO BID [facility] PRN Reason: Protocol Last Admin: 09/18/17 17:06 Dose: 2.5 mg Aspirin (Ecotrin) 81 mg PO DAILY [facility] Last Admin: 09/18/17 08:32 Dose: 81 mg Bismuth Subsalicylate (Pepto-Bismol) 524 mg PO Q4 PRN PRN Reason: Diarrhea Carvedilol (Coreg) 12.5 mg PO BID [facility] Last Admin: 09/18/17 17:05 Dose: 12.5 mg Donepezil HCl (Aricept) 5 mg PO HS [facility] Last Admin: 09/18/17 21:06 Dose: 5 mg Magnesium Hydroxide (Milk Of Magnesia) 30 ml PO HS PRN PRN Reason: Constipation Last Admin: 09/12/17 20:19 Dose: 30 ml Risperidone (Risperidone Odt 0.25mg) 0.25 mg PO BID [facility] Last Admin: 09/18/17 08:33 Dose: 0.25 mg Risperidone (Risperdal Tab) 0.5 mg PO HS [facility] Last Admin: 09/18/17 21:07 Dose: 0.5 mg Risperidone (Risperdal Tab) 0.25 mg PO BID PRN PRN Reason: agitation psychosis Sertraline HCl (Zoloft) 25 mg PO DAILY [facility] Last Admin: 02/16/18 08:35 Dose: 25 mg Tobramycin Sulfate (Tobrex 0.3% Ophth Oint) 1 appl OS TID [facility] Last Admin: 09/18/17 17:06 Dose: 1 applic Vitamin B Complex/Vit C/Folic Acid (Nephro-Doreen) 1 tab PO DAILY [facility] Last Admin: 09/18/17 08:32 Dose: 1 tab - Labs Labs: 09/17/17 08:43 09/17/17 08:43 Assessment and Plan (1) Acute bronchitis Status: Acute (2) Dementia with behavioral disturbance Status: Chronic (3) Atrial fibrillation Status: Chronic
[2017-09-19] MEDS: Albuterol-Ipratrop 3 mg / 0.5 (3 ml) UD INH SCH ×4 (01:04→20:59)
[2017-09-19] MEDS: Multivitamin Vitamin B Complex (Nephro-Vite) Tab PO SCH (09:09)
[2017-09-19] MEDS: RISPERIDONE 0.25 MG ODT PO SCH ×2 (09:10→16:52)
[2017-09-19] MEDS: Tobramycin 0.3% OPH OINT OS SCH ×3 (09:12→16:53)
--- NOTE | 2017-09-19 14:01 | PCM.PYCHPN ---
Psychiatric Progress Note - Psychiatric Progress Note Patient seen today, length of contact: Patient evaluated, case discussed w/ team , chart reviewed Patient Chief Complaint: pt seen seated in milieu, sleeping arrousible to stimulus, staff report pt has been adherent with rx., has had blood work today, pt to be followed by dr montoya. pt received risperdal 0.5mg po prn last night for excitation Problems Identified/Issues Discussed: alteration in mood alteration in ambulation alteration in cognition Medical Problems: per chart Diagnostic Results: per medicine per psychiatry per medicine per nursing Medication Change: Yes ( [id number] ) Medical Record Reviewed: Yes Mental Status Examination - Cognitive Function Orientation: Person, Place ("Hospital"), Situation Memory: Impaired Attention: Poor Concentration: Poor Association: Loose Fund of Knowledge: Poor Decription of patient's judgement and insights: impaired - Mood Mood: Neutral - Affect Affect: Constricted - Speech Speech: Appropriate - Formal Thought Process Formal Thought Process: Loosening of associations - Suicidal Ideation Suicidal Ideation: No - Homicidal Ideation Homicidal Ideation: No Goal/Treatment Plan - Goal/Treatment Plan Need for Continued Stay: Discharge may exacerbated symptoms, Severe functional impairment Progress Toward Problem(s) and Goals/Treatment Plan: inpt milieu visualization/vital signs per protocol and per clinical status adjust med per clinical status will adjust risperdal to 0.25po bid and 0.5mg po hs attempt maintain same total daily dose but attempt to disperse less during day and higher dose hs(attempt to avoid on going need for prns)-pt has a prn order for risperdal 0.5mg po every 12 hours prn for agitation/behavior changes (pt is to receive more than 1.25mg rispderdal [standing/prn before hcp]). dr montoya to follow up related to blood work falls precautions discharge planning in progress Estimated Date of D/C: 09/23/17
--- NOTE | 2017-09-19 16:40 | CP.PCM.PN ---
<Marlon Xie B - Last Filed: 09/19/17 16:40> Subjective - Date & Time of Evaluation Date of Evaluation: 09/19/17 Time of Evaluation: 16:05 Objective - Vital Signs/Intake and Output Vital Signs (last 24 hours): Temp Pulse Resp BP Pulse Ox 97.1 F L 69 19 103/60 98 09/19/17 15:56 09/19/17 15:56 09/19/17 15:56 09/19/17 15:56 09/16/17 21:09 - Medications Medications: Current Medications Acetaminophen (Tylenol 325mg Tab) 650 mg PO Q4 PRN PRN Reason: Pain, moderate (4-7) Al Hydrox/Mg Hydrox/Simethicone (Maalox Plus 30 Ml) 30 ml PO Q4 PRN PRN Reason: Dyspepsia Albuterol/Ipratropium (Duoneb 3 Mg/0.5 Mg (3 Ml) Ud) 3 ml INH RQ6 [facility] Last Admin: 09/19/17 14:33 Dose: 3 ml Apixaban (Eliquis) 2.5 mg PO BID [facility] PRN Reason: Protocol Last Admin: 09/19/17 09:08 Dose: 2.5 mg Aspirin (Ecotrin) 81 mg PO DAILY [facility] Last Admin: 09/19/17 09:08 Dose: 81 mg Bismuth Subsalicylate (Pepto-Bismol) 524 mg PO Q4 PRN PRN Reason: Diarrhea Carvedilol (Coreg) 12.5 mg PO BID [facility] Last Admin: 09/19/17 09:07 Dose: 12.5 mg Donepezil HCl (Aricept) 5 mg PO HS [facility] Last Admin: 09/18/17 21:06 Dose: 5 mg Magnesium Hydroxide (Milk Of Magnesia) 30 ml PO HS PRN PRN Reason: Constipation Last Admin: 09/12/17 20:19 Dose: 30 ml Risperidone (Risperidone Odt 0.25mg) 0.25 mg PO BID [facility] Last Admin: 09/19/17 09:10 Dose: 0.25 mg Risperidone (Risperdal Tab) 0.5 mg PO HS [facility] Last Admin: 09/18/17 21:07 Dose: 0.5 mg Risperidone (Risperdal Tab) 0.25 mg PO BID PRN PRN Reason: agitation psychosis Sertraline HCl (Zoloft) 25 mg PO DAILY [facility] Last Admin: 09/19/17 09:11 Dose: 25 mg Tobramycin Sulfate (Tobrex 0.3% Ophth Oint) 1 appl OS TID [facility] Last Admin: 09/19/17 13:08 Dose: 1 applic Vitamin B Complex/Vit C/Folic Acid (Nephro-Doreen) 1 tab PO DAILY [facility] Last Admin: 09/19/17 09:09 Dose: 1 tab - Labs Labs: 09/17/17 08:43 09/17/17 08:43 Assessment and Plan (1) Acute bronchitis Status: Acute (2) Dementia with behavioral disturbance Status: Chronic (3) Atrial fibrillation Status: Chronic <Isamar Cobian - Last Filed: 09/19/17 21:20> Subjective - Subjective Subjective: Patient had a fall this evening. No head trauma or LOC. Abrasions on L arm, otherwise no injuries or complaints. Neosporin to affected areas. Objective - Vital Signs/Intake and Output Vital Signs (last 24 hours): Temp Pulse Resp BP Pulse Ox 97.1 F L 69 19 103/60 98 09/19/17 15:56 09/19/17 16:50 09/19/17 15:56 09/19/17 16:50 09/16/17 21:09 - Medications Medications: Current Medications Acetaminophen (Tylenol 325mg Tab) 650 mg PO Q4 PRN PRN Reason: Pain, moderate (4-7) Al Hydrox/Mg Hydrox/Simethicone (Maalox Plus 30 Ml) 30 ml PO Q4 PRN PRN Reason: Dyspepsia Albuterol/Ipratropium (Duoneb 3 Mg/0.5 Mg (3 Ml) Ud) 3 ml INH RQ6 [facility] Last Admin: 09/19/17 20:59 Dose: 3 ml Apixaban (Eliquis) 2.5 mg PO BID [facility] PRN Reason: Protocol Last Admin: 09/19/17 16:51 Dose: 2.5 mg Aspirin (Ecotrin) 81 mg PO DAILY [facility] Last Admin: 09/19/17 09:08 Dose: 81 mg Bismuth Subsalicylate (Pepto-Bismol) 524 mg PO Q4 PRN PRN Reason: Diarrhea Carvedilol (Coreg) 12.5 mg PO BID [facility] Last Admin: 09/19/17 16:50 Dose: 12.5 mg Donepezil HCl (Aricept) 5 mg PO HS [facility] Last Admin: 09/19/17 21:18 Dose: 5 mg Magnesium Hydroxide (Milk Of Magnesia) 30 ml PO HS PRN PRN Reason: Constipation Last Admin: 09/12/17 20:19 Dose: 30 ml Risperidone (Risperidone Odt 0.25mg) 0.25 mg PO BID [facility] Last Admin: 09/19/17 16:52 Dose: 0.25 mg Risperidone (Risperdal Tab) 0.5 mg PO HS [facility] Last Admin: 09/19/17 21:17 Dose: 0.5 mg Risperidone (Risperdal Tab) 0.25 mg PO BID PRN PRN Reason: agitation psychosis Sertraline HCl (Zoloft) 25 mg PO DAILY [facility] Last Admin: 09/19/17 09:11 Dose: 25 mg Tobramycin Sulfate (Tobrex 0.3% Ophth Oint) 1 appl OS TID [facility] Last Admin: 09/19/17 16:53 Dose: 1 applic Vitamin B Complex/Vit C/Folic Acid (Nephro-Doreen) 1 tab PO DAILY [facility] Last Admin: 09/19/17 09:09 Dose: 1 tab - Labs Labs: 09/17/17 08:43 09/17/17 08:43
[2017-09-19] MEDS: Bacitracin/Neomycin/Polymyxin 30GM OINT TOP SCH (21:38)
--- NOTE | 2017-09-20 00:51 | CP.PCM.PN ---
Subjective - Date & Time of Evaluation Date of Evaluation: 09/19/17 Time of Evaluation: 19:20 Objective - Vital Signs/Intake and Output Vital Signs (last 24 hours): Temp Pulse Resp BP Pulse Ox 97.1 F L 69 19 103/60 98 09/19/17 15:56 09/19/17 16:50 09/19/17 15:56 09/19/17 16:50 09/16/17 21:09 - Medications Medications: Current Medications Acetaminophen (Tylenol 325mg Tab) 650 mg PO Q4 PRN PRN Reason: Pain, moderate (4-7) Al Hydrox/Mg Hydrox/Simethicone (Maalox Plus 30 Ml) 30 ml PO Q4 PRN PRN Reason: Dyspepsia Albuterol/Ipratropium (Duoneb 3 Mg/0.5 Mg (3 Ml) Ud) 3 ml INH RQ6 [facility] Last Admin: 09/19/17 20:59 Dose: 3 ml Apixaban (Eliquis) 2.5 mg PO BID [facility] PRN Reason: Protocol Last Admin: 09/19/17 16:51 Dose: 2.5 mg Aspirin (Ecotrin) 81 mg PO DAILY [facility] Last Admin: 09/19/17 09:08 Dose: 81 mg Bismuth Subsalicylate (Pepto-Bismol) 524 mg PO Q4 PRN PRN Reason: Diarrhea Carvedilol (Coreg) 12.5 mg PO BID [facility] Last Admin: 09/19/17 16:50 Dose: 12.5 mg Donepezil HCl (Aricept) 5 mg PO HS [facility] Last Admin: 09/19/17 21:18 Dose: 5 mg Magnesium Hydroxide (Milk Of Magnesia) 30 ml PO HS PRN PRN Reason: Constipation Last Admin: 09/12/17 20:19 Dose: 30 ml Neomycin/Polymyxin/Bacitracin (Neosporin Antibiotic Oint) 1 applic TOP BID [facility] Last Admin: 09/19/17 21:38 Dose: 1 applic Risperidone (Risperidone Odt 0.25mg) 0.25 mg PO BID [facility] Last Admin: 09/19/17 16:52 Dose: 0.25 mg Risperidone (Risperdal Tab) 0.5 mg PO HS [facility] Last Admin: 09/19/17 21:17 Dose: 0.5 mg Risperidone (Risperdal Tab) 0.25 mg PO BID PRN PRN Reason: agitation psychosis Sertraline HCl (Zoloft) 25 mg PO DAILY [facility] Last Admin: 09/19/17 09:11 Dose: 25 mg Tobramycin Sulfate (Tobrex 0.3% Ophth Oint) 1 appl OS TID [facility] Last Admin: 09/19/17 16:53 Dose: 1 applic Vitamin B Complex/Vit C/Folic Acid (Nephro-Doreen) 1 tab PO DAILY [facility] Last Admin: 09/19/17 09:09 Dose: 1 tab - Labs Labs: 09/17/17 08:43 09/17/17 08:43 Assessment and Plan (1) Acute bronchitis Status: Acute (2) Dementia with behavioral disturbance Status: Chronic (3) Atrial fibrillation Status: Chronic
[2017-09-20] MEDS: Albuterol-Ipratrop 3 mg / 0.5 (3 ml) UD INH SCH (01:03)
[2017-09-20] MEDS ORDERED: Albuterol-Ipratrop 3 mg / 0.5 (3 ml) UD INH PRN (01:04)
[2017-09-20 08:27] LABS: BASO # 0.1 K/uL (0.0-0.2); BASO % 0.7 % (0.0-2.0); EOS # 0.3 K/uL (0.0-0.7); EOS % 2.4 % (0.0-4.0); LYMPH # 1.9 K/uL (1.0-4.3); LYMPH % 13.4 % (20.0-40.0); MEAN CELL VOLUME 88.9 fl (80.0-94.0); MEAN CORPUSCULAR HEMOGLOBIN 29.3 pg (27.0-31.0); MEAN PLATELET VOLUME 7.4 fl (7.2-11.7); MONO # 1.3 K/uL (0.0-0.8); MONO % 9.5 % (0.0-10.0); NEUT # 10.3 K/uL (1.8-7.0); NRBC % 0.1 % (0.0-0.0); RBC 3.06 Mil/uL (4.40-5.90); RED CELL DISTRIBUTION WIDTH 14.6 % (11.5-14.5)
[2017-09-20 08:51] LABS: CALCIUM 8.8 mg/dL (8.4-10.2)
[2017-09-20] MEDS: RISPERIDONE 0.25 MG ODT PO SCH ×2 (09:26→16:54)
[2017-09-20] MEDS: Multivitamin Vitamin B Complex (Nephro-Vite) Tab PO SCH (09:26)
[2017-09-20] MEDS: Tobramycin 0.3% OPH OINT OS SCH ×3 (09:28→16:55)
[2017-09-20] MEDS: Bacitracin/Neomycin/Polymyxin 30GM OINT TOP SCH ×2 (09:28→16:53)
--- NOTE | 2017-09-20 15:32 | PCM.PYCHPN ---
Psychiatric Progress Note - Psychiatric Progress Note Patient seen today, length of contact: Patient evaluated, case discussed w/ team , chart reviewed Patient Chief Complaint: pt reported to have fallen last evening, unwitnessed fall, some abrasions noted and first was rendered last night, pt is on dual blood thinners, pt appears to be at baseline, appears to be baseline for extremeties, denies headache. pt appears to at baseline cognitive behavior somewhat more alert/pleasant , somewhat calmer. pt requires total care/set up for meals-pending placement ltc. ras waterman in last night to evaluated pt. Problems Identified/Issues Discussed: alteration in mood alteration in ambulation alteration in cognition Medical Problems: per chart Diagnostic Results: per medicine per psychiatry per medicine per nursing DSM 5 Symptoms Update: baseline cognitive status-appears calmer as compared to previous visit, smiling at times, making appropriate jokes at times, daughter/grand daughter in to drop clothes in preparation for transfer, Vy Galloway (POA) notifed of fall and permission to do ct of head-requests to notified of ct of head results (POA). pt seen to be visiting with another daughter and grand daughter (pt 's daughter dropped off clothes for preparation transfer for LTC. Medication Change: No Medical Record Reviewed: Yes Mental Status Examination - Cognitive Function Orientation: Person, Place ("Hospital"), Situation Memory: Impaired Attention: Poor Concentration: Poor Association: Loose Fund of Knowledge: Poor Decription of patient's judgement and insights: impaired-improved somewhat was able to introduce this scientific technical writer to daughter visiting - Mood Mood: Neutral - Affect Affect: Constricted Additional comments: pt is somewhat improved , is smiling more appropriate at times - Speech Speech: Appropriate - Formal Thought Process Formal Thought Process: Loosening of associations - Suicidal Ideation Suicidal Ideation: No - Homicidal Ideation Homicidal Ideation: No Goal/Treatment Plan - Goal/Treatment Plan Need for Continued Stay: Discharge may exacerbated symptoms, Severe functional impairment Progress Toward Problem(s) and Goals/Treatment Plan: inpt milieu visualization/vital signs per protocol and per clinical status adjust med per clinical status ct of head (pt with unwitnessed fall pt receiving dual blood thinners poa notified of fall/permission given for ct of head without contrast-requests to be notified of results falls precautions discharge planning in progress Estimated Date of D/C: 09/23/17 - Smoking Cessation Smoking Cessation Initiated: No Reason for not providing: pt defers
--- NOTE | 2017-09-20 20:38 | CT ---
EXAM: CT Head Without Intravenous Contrast CLINICAL HISTORY: 77 years old, male; Injury or trauma; Fall; Initial encounter; Laceration; Consciousness not specified; Without residual foreign body; Head, generalized; Injury date: Today? ; Injury details: Falling. Pt on blood thinner. Psychiatric evaluation; Additional info: Unwitnessed fall, receiving dual blood thinners TECHNIQUE: Axial computed tomography images of the head/brain without intravenous contrast. All CT scans at this facility use one or more dose reduction techniques, viz.: automated exposure control; ma/kV adjustment per patient size (including targeted exams where dose is matched to indication; i.e. head); or iterative reconstruction technique. Coronal and sagittal reformatted images were created and reviewed. COMPARISON: No relevant prior studies available. FINDINGS: Brain: Moderate atrophy. No intracranial hemorrhage. No mass. Several scattered foci of decreased attenuation within periventricular/subcortical white matter. No edema. Ventricles: No hydrocephalus. Bones/joints: No acute fracture. Soft tissues: Unremarkable. Vasculature: Atherosclerotic disease of intracranial arteries. Sinuses: Mild to moderate mucosal thickening of ethmoid sinuses. Minimal mucosal thickening of RIGHT maxillary sinus. Mastoid air cells: No mastoid effusion. Orbits: Unremarkable as visualized. IMPRESSION: 1. No intracranial hemorrhage. 2. Nonspecific white matter changes. 3. Incidental/non-acute findings are described above.
[2017-09-21] MEDS: Multivitamin Vitamin B Complex (Nephro-Vite) Tab PO SCH (09:45)
[2017-09-21] MEDS: Tobramycin 0.3% OPH OINT OS SCH ×3 (09:45→19:42)
[2017-09-21] MEDS: RISPERIDONE 0.25 MG ODT PO SCH ×2 (09:46→16:27)
[2017-09-21] MEDS: Bacitracin/Neomycin/Polymyxin 30GM OINT TOP SCH ×2 (09:59→19:42)
[2017-09-21 10:00] LABS: BASO # 0.1 K/uL (0.0-0.2); BASO % 0.5 % (0.0-2.0); EOS # 0.3 K/uL (0.0-0.7); EOS % 2.2 % (0.0-4.0); HEMOGLOBIN 9.5 g/dL (12.0-18.0); LYMPH # 1.8 K/uL (1.0-4.3); LYMPH % 11.1 % (20.0-40.0); MEAN CELL VOLUME 88.6 fl (80.0-94.0); MEAN CORPUSCULAR HEMOGLOBIN 28.9 pg (27.0-31.0); MEAN CORPUSCULAR HGB CONC 32.6 g/dL (33.0-37.0); MEAN PLATELET VOLUME 7.3 fl (7.2-11.7); MONO # 1.1 K/uL (0.0-0.8); MONO % 7.1 % (0.0-10.0); NEUT # 12.5 K/uL (1.8-7.0); NEUT % 79.1 % (50.0-75.0); RBC 3.3 Mil/uL (4.40-5.90); RED CELL DISTRIBUTION WIDTH 14.3 % (11.5-14.5); WHITE BLOOD COUNT 15.8 K/uL (4.8-10.8)
[2017-09-21 10:19] LABS: ALB/GLOB RATIO 0.9 (1.0-2.1); ALBUMIN 2.9 g/dL (3.5-5.0); ALT/SGPT 22 U/L (21-72); AST/SGOT 38 U/L (17-59); BLOOD UREA NITROGEN 45 mg/dl (9-20); GFR AFRICAN-AMERICAN > 60; GFR NON-AFRICAN AMERICAN 59
--- NOTE | 2017-09-21 12:13 | PCM.BM ---
Treatment Plan Problems - Problems identified on initial assessmt Agitated/aggressive behavior Date Initiated: 09/07/17 Time Initiated: 06:54 Assessment reference: NA Status: Active Treatment assets and liabiliti Patient Assests: cooperative, good support system, negotiates basic needs Patient Liabilities: medical problems, imparied memory - Milieu Protocol Maintain good personal hygiene: every shift Encourage regular showers, every shift Remind patient to perform daily oral care, every shift Assist patient to perform ADL's Maintain personal safety: daily Educate patient to report safety concerns to staff, daily Monitor environment for contraband/sharps Medication safety: Monitor for expected outcome, potential side effects: daily, Assess barriers to learning: daily, Assess readiness for medication education: daily Milieu Narrative: inpt milieu visualization/vital signs per protocol and per clinical status adjust med per clinical status ct of head (pt with unwitnessed fall pt receiving dual blood thinners poa notified of fall/permission given for ct of head without contrast-requests to be notified of results falls precautions discharge planning in progress Family Contact Family involvement: Family/SO is involved Family contact: Patient agrees to contact Family contact name: Vy - sister Family contact comment: [phone] cell # - Outside Agency [facility] involvment: Information-sharing Agency contact number: [phone] - Goals for Treatment Patient goals for treatment: "I need to go back home again and not that place." Discharge/Continuing Care - Education Needs Education Needs: Family Medication, Family Diagnosis/Disease Process, Family Coping Skills, Family Placement options, Family Community resources, Family Activities of Daily Living, Family Nutrition, Family Uses of Medical Equipment, Family Personal Hygiene/Grooming, Family Aftercare Safety Plan, Patient Medication, Patient Diagnosis/Disease Process, Patient Coping Skills, Patient Placement options, Patient Community resources, Patient Activities of Daily Living, Patient Nutrition, Patient Uses of Medical Equipment, Patient Personal Hygiene/Grooming, Patient Aftercare Safety Plan - Discharge Discharge Criteria: Tolerates medication w/o severe side effects, Free of Suicidal thoughts, Free of Homicidal thoughts, Free of paranoid thoughts, Free of agitation, Normal sleep pattern, Ability to care for self, Reduction of target symptoms Discharge to:: Longterm Facility (Pt is pending admission to [facility] in [place], [place]. Pt's sister and PHILLVy resides in [place], [place] and requested that pt be placed near her.) - Additional Comments 09/07/17 12:08 Pt seen and discussed in team meeting. Reason for hospitalization reviewed and discussed. Pt presents as paranoid stating "the drugs are a big making for this place." Pt continued to talk about 2 guys and how they stole money form him and "won't pay up now." Pt unable to state who these 2 men are and what their names are. Pt also reported he wanted to hurt himself and someone else. Lime Puller inquired about the statement made at facility about him wanting to jump out of the window, pt stated "who said that is a jerk off." Pt was able to follow direction during meeting. Pt unable to answer questions appropriately. Pt's social and medical issues reviewed. Pt's medications reviewed. Tx plan reviewed and pt agreeable. Pt provided ad copy writer with verbal authorization to contact his sister, Vy and his son, Eleicer Muniz. Pt reported he did not know Eliecer's contact information. - Treatment Team Participation Patient/Family/SO Statement: inpt milieu visualization/vital signs per protocol and per clinical status adjust med per clinical status ct of head (pt with unwitnessed fall pt receiving dual blood thinners poa notified of fall/permission given for ct of head without contrast-requests to be notified of results falls precautions discharge planning in progress Discussed with Family/SO: No Was Patient/Family/SO present at Treatment Team Meeting: Yes Treatment Plan Review - Problem Agitated/aggressive behavior Date Initiated: 09/07/17 Time Initiated: 06:54 Progress toward outcomes: resolved (Pt has not exhibited any aggressive/ assaultive bx's. Pt is irritable and agitated at times when sun-downing, but re- directable.) Date resolved: 09/14/17 - Discharge / Continuing Care Discharge to:: Longterm Facility (Pt is clinically and financially accepted at [facility].) Behavioral Health Services: Other (Structured group; medication management; family support group; individual therapy) Health Needs: Follow up care/test, Doctor appointments, Special equipment, Nutritional (Per PT evaluation, pt recommended to continue PT/OT services at accepting facility), Medications/Rx, Educational, Recreational/Social
--- NOTE | 2017-09-21 12:22 | RAD ---
HISTORY: cough increase in wbc COMPARISON: 09/07/2017. FINDINGS: LUNGS: The lungs are hyperinflated and there is peribronchial thickening with chronic changes in both lungs. No focal consolidation. PLEURA: No significant pleural effusion identified, no pneumothorax apparent. CARDIOVASCULAR: The heart is normal in size. Status post CABG. OSSEOUS STRUCTURES: No significant abnormalities. VISUALIZED UPPER ABDOMEN: Normal. OTHER FINDINGS: None. IMPRESSION: No active pulmonary disease. COPD.
--- NOTE | 2017-09-21 12:36 | PCM.PYCHPN ---
Psychiatric Progress Note - Psychiatric Progress Note Patient seen today, length of contact: Patient evaluated, case discussed w/ team , chart reviewed Patient Chief Complaint: "I'm okay." Problems Identified/Issues Discussed: Patient has improved clinically. No current behavioral outbursts or paranoia. Patient reports stomach discomfort due to constipation. Patient had elevated WBC, so CXR was ordered. He denies acute depression/anxiety. Denies AH/VH/SI/ HI. He denies adverse effects to medications. Medication Change: No Medical Record Reviewed: Yes Consults ordered or reviewed: Medicine consult, Psychology consult Mental Status Examination - Cognitive Function Orientation: Person, Place ("Hospital"), Situation Memory: Impaired Attention: Poor Concentration: Poor Association: Loose Fund of Knowledge: Poor Decription of patient's judgement and insights: Limited I/J due to chronic dementia - Mood Mood: Neutral - Affect Affect: Broad - Speech Speech: Appropriate - Formal Thought Process Formal Thought Process: Loosening of associations Psychotic Thoughts and Behaviors: NO AH/VH/paranoia/delusions - Suicidal Ideation Suicidal Ideation: No - Homicidal Ideation Homicidal Ideation: No Goal/Treatment Plan - Goal/Treatment Plan Need for Continued Stay: Severe functional impairment Progress Toward Problem(s) and Goals/Treatment Plan: Dementia w/ behavioral disturbance; MDD w/ psychosis; patient has improved clinically; possible discharge tomorrow if he is medically cleared. -Individual and group therapy -Medicine consult re: chronic medical conditions -Continue Zoloft 25 mg PO Daily and Risperdal 0.25 mg BID and 0.5 mg PO HS -Continue Aricept 5 mg PO HS -Collateral history obtained from the patient's sister -Disposition planning Estimated Date of D/C: 09/22/17 - Smoking Cessation Smoking Cessation Initiated: No Reason for not providing: Not indicated
[2017-09-21] MEDS ORDERED: Docusate-Senna 50 mg-8.6 mg Tab PO SCH (22:00)
[2017-09-22 06:18] VITALS: RESP 19; TEMP 97.7
[2017-09-22] MEDS: Tobramycin 0.3% OPH OINT OS SCH (08:29)
[2017-09-22] MEDS: Multivitamin Vitamin B Complex (Nephro-Vite) Tab PO SCH (08:31)
[2017-09-22] MEDS: Bacitracin/Neomycin/Polymyxin 30GM OINT TOP SCH (08:31)
[2017-09-22] MEDS: RISPERIDONE 0.25 MG ODT PO SCH (08:32)
[2017-09-22 08:33] VITALS: BP 129/56; PULSE 84
[2017-09-22 09:45] LABS: BASO # 0.1 K/uL (0.0-0.2); BASO % 0.7 % (0.0-2.0); EOS # 0.3 K/uL (0.0-0.7); EOS % 2.1 % (0.0-4.0); HEMOGLOBIN 10.5 g/dL (12.0-18.0); LYMPH # 1.6 K/uL (1.0-4.3); LYMPH % 10.4 % (20.0-40.0); MEAN CELL VOLUME 88.5 fl (80.0-94.0); MEAN CORPUSCULAR HEMOGLOBIN 29.6 pg (27.0-31.0); MEAN CORPUSCULAR HGB CONC 33.5 g/dL (33.0-37.0); MEAN PLATELET VOLUME 6.8 fl (7.2-11.7); MONO # 1.4 K/uL (0.0-0.8); MONO % 9.2 % (0.0-10.0); NEUT # 12.1 K/uL (1.8-7.0); NEUT % 77.6 % (50.0-75.0); NRBC % 0.1 % (0.0-0.0); RBC 3.55 Mil/uL (4.40-5.90); RED CELL DISTRIBUTION WIDTH 14.4 % (11.5-14.5); WHITE BLOOD COUNT 15.6 K/uL (4.8-10.8)
[2017-09-22 10:08] LABS: BLOOD UREA NITROGEN 36 mg/dl (9-20); CALCIUM 9.1 mg/dL (8.4-10.2); GFR AFRICAN-AMERICAN > 60; GFR NON-AFRICAN AMERICAN > 60
--- NOTE | 2017-09-22 10:37 | PCM.PYCHDC ---
Mental Status Examination - Mental Status Examination Orientation: Person Memory: Impaired Mood: Neutral Affect: Broad Speech: Appropriate Attention: Poor Concentration: Poor Association: Loose Fund of Knowledge: Poor Formal Thought Process: Loosening of associations Description of patient's judgement and insight: Limited I/J due to chronic dementia Psychotic Thoughts and Behaviors: NO AH/VH/paranoia/delusions Suicidal Ideation: No Current Homicidal Ideation?: No Discharge Summary - Discharge Note Reason for Hospitalization: CC: "The guys are after me." Patient is a limited historian due to dementia HPI: 77 yo male w/ h/o dementia, presented to the ED w/ threats to harm himself and others and paranoia that some men are trying to harm him. As per record he has been increasingly [facility] towards others at the [facility]. Patient denies acute ideation to harm himself or others, but continues to be paranoid that people are trying to steal from him and physically harm him. He is mistrustful of other. A + O x person and "hospital." As per chart, patient also made threats to jump out the window but he denies that now. +Depressed mood. +Anxiety. +Sleep disturbances. 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; denies current drugs/etoh/cig ; former smoker Laboratory Data: Abnormal Lab Results 09/21/17 09/22/17 09/22/17 15:19 05:34 09:40 WBC 15.6 H RBC 3.55 L Hgb 10.5 L Hct 31.4 L MCV 88.5 MCH 29.6 MCHC 33.5 RDW 14.4 Plt Count 547 H MPV 6.8 L Neut % (Auto) 77.6 H Lymph % (Auto) 10.4 L Humphreys % (Auto) 9.2 Eos % (Auto) 2.1 Baso % (Auto) 0.7 Neut # (Auto) 12.1 H Lymph # (Auto) 1.6 Humphreys # (Auto) 1.4 H Eos # (Auto) 0.3 Baso # (Auto) 0.1 Sodium Potassium Chloride Carbon Dioxide Anion Gap BUN Creatinine Est GFR ( Amer) Est GFR (Non-Af Amer) POC Glucose (mg/dL) 145 H 107 Random Glucose Calcium 09/22/17 09:40 WBC RBC Hgb Hct MCV MCH MCHC RDW Plt Count MPV Neut % (Auto) Lymph % (Auto) Humphreys % (Auto) Eos % (Auto) Baso % (Auto) Neut # (Auto) Lymph # (Auto) Humphreys # (Auto) Eos # (Auto) Baso # (Auto) Sodium 137 Potassium 4.3 Chloride 102 Carbon Dioxide 23 Anion Gap 16 BUN 36 H Creatinine 1.1 Est GFR ( Amer) > 60 Est GFR (Non-Af Amer) > 60 POC Glucose (mg/dL) Random Glucose 172 H Calcium 9.1 Consultations:: List each consultation separately and include: 1. Reason for request. 2. Findings. 3. Follow-up Consultations: Medicine consult, Psychology consult Summary of Hospital Course include:: 1. Description of specific treatment plan utilized for patients during their course of treatmen. 2. Summarize the time- course for resolution of acute symptoms and/or regressed behaviors. 3. Describe issues identified and worked on during hospitalization. 4. Describe medication utilized. 5. Describe medical problems identified and treated. 6. Reassessment of suicide risk Summary of Hospital Course: Patient was admitted to the geriatric psychiatry unit. Individual and group therapy were provided. Patient was treated for dementia with behavioral disturbances and stabilized on Aricept 5 mg PO HS, Risperdal 0.25 mg PO BID/ 0.5 mg HS and Zoloft 25 mg PO Daily. 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 Prior to discharge he had an elevation in white count to 15, CXR was done and was negative (except for chronic COPD); patient was started on Azithromycin by medical social consultant to be continued until his last dose on . Patient continues to have chronic neurocognitive deficits due to dementia. - Diagnosis (1) Dementia with behavioral disturbance Current Visit: Yes Status: Chronic (2) Major depressive disorder with psychotic features Current Visit: Yes Status: Resolved - Final Diagnosis (DSM 5) Condition upon Discharge: STABLE DSM 5: Dementia w/ Behavioral Disturbances; Major Depressive Disorder Disposition: TRANSF TO SNF Follow-up Treatment Plan: Dementia w/ behavioral disturbance; MDD w/ psychosis; patient is medically and psychiatrically stable for discharge at this time. -Continue Zoloft 25 mg PO Daily and Risperdal 0.25 mg BID and 0.5 mg PO HS -Continue Aricept 5 mg PO HS -Continue Azithromycin as per Dr. 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
--- NOTE | 2017-09-23 12:01 | CP.PCM.PN ---
Subjective - Date & Time of Evaluation Date of Evaluation: 09/21/17 Objective - Vital Signs/Intake and Output Vital Signs (last 24 hours): Temp Pulse Resp BP Pulse Ox 97.7 F 84 19 129/56 L 98 09/22/17 06:00 09/22/17 08:27 09/22/17 06:00 09/22/17 08:27 09/16/17 21:09 - Labs Labs: 09/22/17 09:40 09/22/17 09:40 Assessment and Plan (1) Acute bronchitis Status: Acute (2) Dementia with behavioral disturbance Status: Chronic (3) Atrial fibrillation Status: Chronic
--- NOTE | 2017-09-23 12:01 | CP.PCM.PN ---
Subjective - Date & Time of Evaluation Date of Evaluation: 09/20/17 Objective - Vital Signs/Intake and Output Vital Signs (last 24 hours): Temp Pulse Resp BP Pulse Ox 97.7 F 84 19 129/56 L 98 09/22/17 06:00 09/22/17 08:27 09/22/17 06:00 09/22/17 08:27 09/16/17 21:09 - Labs Labs: 09/22/17 09:40 09/22/17 09:40 Assessment and Plan (1) Acute bronchitis Status: Acute (2) Dementia with behavioral disturbance Status: Chronic (3) Atrial fibrillation Status: Chronic
--- NOTE | 2017-09-23 12:04 | CP.PCM.PN ---
Subjective - Date & Time of Evaluation Date of Evaluation: 09/22/17 Time of Evaluation: 17:20 Objective - Vital Signs/Intake and Output Vital Signs (last 24 hours): Temp Pulse Resp BP Pulse Ox 97.7 F 84 19 129/56 L 98 09/22/17 06:00 09/22/17 08:27 09/22/17 06:00 09/22/17 08:27 09/16/17 21:09 - Labs Labs: 09/22/17 09:40 09/22/17 09:40 Assessment and Plan (1) Acute bronchitis Status: Acute (2) Dementia with behavioral disturbance Status: Chronic (3) Atrial fibrillation Status: Chronic
== END 2017-09-22 11:45 | DRG 57 ==
LOC: H.ER 03:04 → H.ERHOLD 05:12 → H.STEP 06:39
PROVIDERS: ADMIT Psychiatry & Neurology Psychiatry; ATTEND Psychiatry & Neurology Psychiatry
PROC: 3E0F7GC Introduction of Other Therapeutic Substance into Respiratory Tract, Via Natural or Artificial Opening (ICD-10-PCS; 2017-09-07)
PROC: GZHZZZZ Group Psychotherapy (ICD-10-PCS; principal; 2017-09-11)
PROC: GZ51ZZZ Individual Psychotherapy, Behavioral (ICD-10-PCS; 2017-09-11)
DX: G30.9 Alzheimer's disease, unspecified (principal); F01.51 Vascular dementia, unspecified severity, with behavioral disturbance; E11.22 Type 2 diabetes mellitus with diabetic chronic kidney disease; F32.3 Major depressive disorder, single episode, severe with psychotic features; E86.0 Dehydration; I48.91 Unspecified atrial fibrillation; Z99.81 Dependence on supplemental oxygen; J44.0 Chronic obstructive pulmonary disease with (acute) lower respiratory infection; B95.2 Enterococcus as the cause of diseases classified elsewhere; F02.81 Dementia in other diseases classified elsewhere, unspecified severity, with behavioral disturbance; N39.0 Urinary tract infection, site not specified; W19.XXXA Unspecified fall, initial encounter; E78.00 Pure hypercholesterolemia, unspecified; E78.5 Hyperlipidemia, unspecified; I12.9 Hypertensive chronic kidney disease with stage 1 through stage 4 chronic kidney disease, or unspecified chronic kidney disease; J20.9 Acute bronchitis, unspecified; K59.00 Constipation, unspecified; N18.9 Chronic kidney disease, unspecified; S40.812A Abrasion of left upper arm, initial encounter; Z79.01 Long term (current) use of anticoagulants; Z79.82 Long term (current) use of aspirin; Z79.899 Other long term (current) drug therapy; Z87.891 Personal history of nicotine dependence; Z95.1 Presence of aortocoronary bypass graft; Z16.21 Resistance to vancomycin; R26.81 Unsteadiness on feet